=== PATIENT | male | born 1935 | race Caucasian/White ===

== ENCOUNTER → 2017-06-06 07:30 | Outpatient (CLI) | payer MEDICARE, SELFPAY ==
--- NOTE | 2017-05-10 16:38 | HP.PCM_ITS ---
History and Physical Date of Admission: 05/11/17 Referring Provider: Chavo Herman MD Primary Provider: Chavo Herman MD CC: evaluation for TBSE. History of Present Illness: 81 year male presents for evaluation for TBSE. He is concerned about a growing lesion on his dorsal radial aspect left mid forearm that has a cutaneous horn component. It has irregular borders. He denies any bleeding. He denies any trauma. He denies any fever. 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 He presents at this time for further evaluation and treatment. 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 Aspirin. Lipitor. Donepezil. Empagliflozin. Fish Oil. Neurontin. Amaryl. HCTZ. Zestril. MVI. Januvia. Ultram. Coumadin. ALLERGIES: Levaquin. Family History Summary: Mother (biol.) - Has Family History of Stroke/CVA Father (biol.) - Has Family History of Heart Disease General Comments - FH: Heart dx negative for skin cancer negative for bleeding disorders Social History: patient does not smoke. He chews tobacco. Does not drink alcohol. does take a daily aspirin. does not use ibuprofen. Review of Systems General Complains of fatigue. Denies fever and weight loss. Currently going through speech therapy s/p ischemic stroke. No paralysis, weakness or facial drooping Eyes Denies eye pain. denies cataracts. denies glaucoma. ENT Denies nasal congestion and sore throat. CV Denies difficulty breathing at night, chest pain or discomfort, fatigue, lightheadedness, shortness of breath with exertion, difficulty breathing while lying down, and weight gain. has hypertension. had cardiac catheterization in 2009. had ischemic stroke 07/2015 Resp Complains of sleep disturbances due to breathing and cough. patient does not smoke. He chews tobacco. GI Denies nausea, vomiting, diarrhea and constipation. Complains of urinary frequency and urinary hesitancy. Denies hematuria. has history of UTI's MS Complains of joint pain and gout. Denies back pain, stiffness, muscle weakness, and arthritis. Derm Complains of suspicious lesions and skin cancer. has enlarging lesion dorsal radial aspect left mid forearm. 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 Neuro Denies headaches, numbness and weakness. Psych Denies anxiety and depression. Endo Denies excessive urination, excessive thirst, and weight change. has diabetes mellitus. has high cholesterol. Heme Denies bleeding and abnormal bruising. Currently taking plavix s/p ischemic stroke Allergy Denies hives or rash and seasonal allergies. Vital Signs: Patient Profile: 81 Years Old Male Height: 73 inches Weight: 242.0 pounds BMI: 31.92 BSA: 2.34 Physical Exam General: well developed, well nourished, in no acute distress. Head: normocephalic and atraumatic. No suspicious lesions noted Eyes: PERRL/EOM intact, conjunctiva and sclera clear. Ears: No suspicious lesions noted Nose: No suspicious lesions noted Mouth: No suspicious lesions noted Neck: no masses, thyromegaly, or abnormal cervical nodes. No suspicious lesions noted Lungs: clear bilaterally to auscultation. Heart: non-displaced PMI, chest non-tender; regular rate and rhythm, S1, S2 without murmurs, rubs, or gallops Pulses: Radial pulses palpable. Extremities: no clubbing, cyanosis, edema. On the dorsal radial aspect left mid forearm is a 12 mm lesion that has a cutaneous horn component. Has irregular borders. No ulceration. Lesion is nontender. No axillary adenopathy. Radial pulses are palpable. Neurologic: no focal deficits, cranial nerves II-XII grossly intact with normal sensation, reflexes, coordination, muscle strength and tone. Skin: no rashes Cervical Nodes: no significant adenopathy. Axillary Nodes: no significant adenopathy. Psych: alert and cooperative; normal mood and affect; normal attention span and concentration. Assessment and Plan 1. 1.2 cm cutaneous horn lesion dorsal radial aspect left mid forearm. 2. Personal history of skin cancer. Recommend excision of this cutaneous horn like lesion on his dorsal radial aspect left mid forearm and send the tissue to pathology to rule out carcinoma. If carcinoma is present will proceed with further excision. Reconstruction will be done with skin graft or skin flap. Will excise as a full thickness excision because it is a cutaneous horn and could harbor a focus of skin cancer at the base. The surgery will be done on an outpatient basis under local anesthesia with IV Sedation. The patient was informed of the risks and complications of the procedure including alternatives to surgery. These were discussed with the patient personally. The patient voices understanding and wishes to proceed. Some of the risks and complications were included in a form from the [employer].
[2017-05-11 09:01] VITALS: BP 140/66; PULSE 58; RESP 16; TEMP 36.1; O2SAT 100; BMI 36.0
[2017-05-11 09:05] LABS: Prothrombin Time Fingerstick 13.7 SEC (11.9-14.4)
[2017-05-11 09:46] LABS: Bedside Glucose 198 mg/dL (70-110)
--- NOTE | 2017-05-11 10:38 | PCM.PN.BLA ---
Progress Note Patient was scheduled to have a cutaneous horn lesion excised from the dorsal radial aspect left mid forearm today. He comes in this morning and the horn component has fallen off. There is a small erythematous remnant still present. I still recommend excision with skin flap or skin graft reconstruction because the base of the lesion can still harbor a focus of skin cancer. However the patient would like to postpone the surgery at this time since the horn component has fallen off. 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 He will followup in my office in 2 months for re-evaluation for excision of this cutaneous horn lesion on the dorsal radial aspect left mid forearm.
== END ==
PROVIDERS: Family Provider Family Medicine; PCP Family Medicine; Visit Provider Surgery
DX: L85.8 Other specified epidermal thickening (principal); Z53.8 Procedure and treatment not carried out for other reasons; E11.9 Type 2 diabetes mellitus without complications; Z79.84 Long term (current) use of oral hypoglycemic drugs; I49.9 Cardiac arrhythmia, unspecified; I44.0 Atrioventricular block, first degree; I10 Essential (primary) hypertension; E78.00 Pure hypercholesterolemia, unspecified; G47.30 Sleep apnea, unspecified; F17.220 Nicotine dependence, chewing tobacco, uncomplicated; Z86.73 Personal history of transient ischemic attack (TIA), and cerebral infarction without residual deficits; Z79.01 Long term (current) use of anticoagulants; Z79.82 Long term (current) use of aspirin; Z79.899 Other long term (current) drug therapy; Z85.828 Personal history of other malignant neoplasm of skin
CPT/HCPCS: 36416; 82962; 85610; J7120

== ENCOUNTER → 2019-03-01 15:00 | Outpatient (CLI) | payer MEDICARE, SELFPAY ==
[2017-05-11 09:01] VITALS: BMI 36.0
[2019-03-01 15:23] LABS: International Normalized Ratio 1.5; Prothrombin Time (Protime)PT. 18.1 SECONDS (11.7-14.9)
== END ==
PROVIDERS: Family Provider Family Medicine; PCP Family Medicine; Visit Provider Family Medicine
DX: Z79.01 Long term (current) use of anticoagulants (principal)
CPT/HCPCS: 85610

== ENCOUNTER → 2019-04-11 12:47 | Outpatient (CLI) | payer MEDICARE, SELFPAY ==
[2017-05-11 09:01] VITALS: BMI 36.0
[2019-04-11 13:02] LABS: International Normalized Ratio 2.3; Prothrombin Time (Protime)PT. 25.3 SECONDS (11.7-14.9)
== END ==
PROVIDERS: Family Provider Family Medicine; PCP Family Medicine; Referring Provider Family Medicine; Visit Provider Family Medicine
DX: Z79.01 Long term (current) use of anticoagulants (principal)
CPT/HCPCS: 85610

== ENCOUNTER → 2020-07-01 | Outpatient (CLI) | payer MEDICARE, SELFPAY ==
[2017-05-11 09:01] VITALS: BMI 36.0
[2020-07-01 15:51] LABS: International Normalized Ratio 1.3
== END | disposition home or self-care (01) ==
LOC: LABSPEC 15:24
PROVIDERS: PCP Family Medicine; Visit Provider Family Medicine
DX: Z79.01 Long term (current) use of anticoagulants (principal)
CPT/HCPCS: 85610

== ENCOUNTER 2020-07-30 10:30 | Outpatient (RCR) | payer MEDICARE, SELFPAY ==
[2017-05-11 09:01] VITALS: BMI 36.0
== END 2020-07-31 23:59 ==
LOC: DC 10:30
PROVIDERS: PCP Family Medicine; Visit Provider Family Medicine
DX: E11.22 Type 2 diabetes mellitus with diabetic chronic kidney disease (principal); N18.9 Chronic kidney disease, unspecified
CPT/HCPCS: 97802; G0108

== ENCOUNTER → 2020-08-14 15:39 | Outpatient (CLI) | payer MEDICARE, SELFPAY ==
[2017-05-11 09:01] VITALS: BMI 36.0
--- NOTE | 2020-08-14 15:43 | MRI_ITS ---
STUDY: MRI BRAIN WITHOUT CONTRAST REASON FOR EXAM: Male, 84 years old. Dementia, prior stroke TECHNIQUE: Standardized multiplanar fat and water weighted pulse sequences were obtained. COMPARISON: 23 April 2016. FINDINGS: Moderate extent posterior left frontoparietal predominantly postcentral gyrus infarct is stable. Adjacent white matter gliosis has increased. There is a new since 2017 but chronic stage smaller left occipital infarct. There is mild to moderate global brain atrophy. There is no mass effect, midline shift, hydrocephalus or herniation. Major vascular flow structures are preserved. MRI/Brain without Contrast IMPRESSION: 1. No acute findings. 2. Chronic moderate extent left frontoparietal infarct. 3. Chronic small left occipital infarct, new since 2016. Electronically Signed: Hammad Palmer MD at 17:36 EDT Tel , Service support ,
== END ==
PROVIDERS: PCP Family Medicine
DX: F01.50 Vascular dementia, unspecified severity, without behavioral disturbance, psychotic disturbance, mood disturbance, and anxiety (principal)
CPT/HCPCS: 70551

== ENCOUNTER 2020-08-20 14:45 | Outpatient (RCR) | payer MEDICARE, SELFPAY ==
[2017-05-11 09:01] VITALS: BMI 36.0
== END 2020-08-31 23:59 ==
LOC: DC 14:45
PROVIDERS: PCP Family Medicine; Visit Provider Family Medicine
DX: E11.22 Type 2 diabetes mellitus with diabetic chronic kidney disease (principal); N18.9 Chronic kidney disease, unspecified
CPT/HCPCS: 97803

== ENCOUNTER 2020-09-10 14:27 | Outpatient (RCR) | payer MEDICARE, SELFPAY ==
[2017-05-11 09:01] VITALS: BMI 36.0
== END 2020-09-10 23:59 | disposition home or self-care (01) ==
LOC: DC 14:27
PROVIDERS: PCP Family Medicine; Visit Provider Family Medicine
DX: E11.22 Type 2 diabetes mellitus with diabetic chronic kidney disease (principal); N18.9 Chronic kidney disease, unspecified
CPT/HCPCS: 97803

== ENCOUNTER 2021-02-15 09:22 | Emergency (ER) | payer MEDICARE, SELFPAY ==
[2021-02-15 09:23] VITALS: BP 148/84; PULSE 103; RESP 18; TEMP 36.4; O2SAT 100; BMI 34.0
[2021-02-15] MEDS: 0.9% Normal Saline 1,000 ML 1000 ML IV (10:00)
--- NOTE | 2021-02-15 10:01 | EDS_ITS ---
HPI HPI - GI History of Present Illness Chief Complaint: Abd Pain Informant: patient and spouse/S.O. Abdominal Pain/Flank Pain Onset: Days Context: Gradual Onset Timing: Continuous Quality: Aching and Sharp Location: RLQ and LLQ Worsened by: Nothing Relieved by: - (Pepto-Bismol) Nausea/Vomiting/Emesis GI Symptom: Positive for Nausea; Negative for Vomiting Diarrhea/Melena/Hematochezia GI Symptom: Negative for Diarrhea, Melena and Hematochezia Associated Symptoms Associated Symptoms: Negative for Dysuria, Frequency and Hematuria Narrative Narrative: Patient presents with lower abdominal pain that has been getting worse over the past several days. Patient states he has been constipated. Patient had a Dulcolax which helped with this. Patient had a normal bowel movement yesterday. Patient describes his pain is constant aching but sharp at times. Patient states it is over his lower abdomen. states the patient has a history of diverticulosis. states she contact the patient's primary care physician who referred him to the emergency department for possible diverticulitis. Patient denies any melena or hematochezia. Patient denies any urinary complaints. 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 Stroke Home Medications allopurinol 300 mg PO DAILY 07/31/15 [History Last Taken Unknown] gabapentin 300 mg PO BID 07/31/15 [History Last Taken Unknown] glimepiride 4 mg PO BID 07/31/15 [History Last Taken Unknown] lisinopril 30 mg PO DAILY 07/31/15 [History Last Taken 05/11/17 06:00] sitagliptin 50 mg PO DAILY 07/31/15 [History Last Taken Unknown] tramadol 50 mg PO Q4H PRN PRN #30 tab 08/04/15 [Rx Last Taken Unknown] fish oil-dha-epa 1 ea PO DAILY 12/03/15 [History Last Taken Unknown] aspirin 81 mg tablet,delayed release 81 mg PO BID 04/19/17 [History Last Taken 05/05/17] donepezil 10 mg tablet 10 mg PO QHS 04/19/17 [History Last Taken Unknown] empagliflozin 10 mg tablet 10 mg PO QDAY 04/19/17 [History Last Taken Unknown] multivitamin 1 cap PO QDAY 04/19/17 [History Last Taken Unknown] warfarin 4 mg tablet See Rx Instructions PO QDAY 04/19/17 [History Last Taken 05/05/17] Daily Defense Supplement 1 tab PO DAILY 05/04/17 [History Last Taken Unknown] atorvastatin 80 mg PO DAILY 05/04/17 [History Last Taken Unknown] hydrochlorothiazide 25 mg PO DAILY 05/04/17 [History Last Taken Unknown] Allergy/AdvReac Type Severity Reaction Status Date / Time levofloxacin [[facility]] Allergy Other Verified 02/15/21 09:22 metformin AdvReac Other Verified 02/15/21 09:22 ACARB AdvReac Nausea Uncoded 02/15/21 09:22 Family History (Updated 04/12/17 @ 14:21 by Alexandra Slater) Mother CVA (cerebral vascular accident) Father Heart disease Surgical History EXCISION PAINFUL SOFT TISSUE MASS HEART CATHETERIZATION 2009 [facility] History of squamous cell carcinoma excision Social History Smoking Status: Never smoker second hand exposure: No alcohol intake: never substance use type: does not use what type of physical activity do you participate in: none seatbelt use: sometimes do you feel safe at home: Yes additional social history: SUN EXPOSURE: FREQUENTLY ROS ROS ED Constitutional Constitutional ED: Denies chills or fever(s) Eyes Eyes: Denies blurry vision or change in vision ENT ENT ED: Denies rhinorrhea or sore throat Cardiovascular Cardiovascular: Denies chest pain or palpitations Respiratory/Chest Respiratory/Chest: Denies cough or dyspnea Gastrointestinal Gastrointestinal: Reports nausea; Denies vomiting Genitourinary Genitourinary ED: Denies dysuria or hematuria Musculoskeletal Musculoskeletal: Reports back pain; Denies neck pain Integumentary Denies abscess or rash Neurologic Neurologic: Denies headache(s) or weakness Allergic/Immunologic Allergic/Immunologic ED: Denies mouth swelling or urticaria EXAM Physical Exam Const Vital Signs: 02/15/21 09:23 02/15/21 12:54 Temperature 97.6 F L Temperature Source Temporal Pulse Rate 103 H 73 Respiratory Rate 18 16 Blood Pressure 148/84 H 155/78 H Blood Pressure Mean 105 103 Pulse Ox 100 97 Oxygen Delivery Method Room Air Room Air Positive well nourished and well developed General Appearance ED: well developed HEENT Reports moist mucous membranes Neck supple and no JVD Resp normal respiratory effort and clear to auscultation bilaterally Cardio regular rate, regular rhythm and no murmurs GI normal to inspection, nondistended, normoactive bowel sounds and non-distended Auscultation: normoactive bowel sounds Palpation: soft and tender LLQ, RLQ and suprapubic; Negative for guarding or rebound tenderness present Extremity normal to inspection General Extremety ED: Negative for edema or tenderness General Extremity: Negative for edema Neuro oriented x3, CN's II-XII intact bilaterally and no sensory deficits noted Sensorium / Orientation: alert Motor Exam: strength 5/5 throughout Psych mental status grossly normal Skin no rashes or lesions noted MDM MDM MDM Narrative Medical decision making narrative: Patient was given IV fluids. CBC shows a slight leukocytosis of 13.4. Comprehensive metabolic profile showed a slightly elevated glucose of 306. Anion gap was normal. Creatinine was 2.08 and BUN was 45. These are consistent with prior results. Urinalysis does not show any evidence of urinary tract infection. CT scan of the abdomen pelvis was obtained. There is distention of the urinary bladder and mild perinephric stranding. There is sigmoid diverticulosis but no diverticulitis. This was interpreted by the radiologist and reviewed by myself. Bladder scan showed 265 cc of urine in the bladder. Patient states he has some urinary incontinence which is chronic. Patient denies any difficulty voiding. Patient and his were advised of the findings. Patient was instructed to follow-up with his primary care physician in 3 to 5 days. Patient and understood and were agreeable with the plan. All questions were answered. Lab Data Attestation: I reviewed the patient's lab results. Labs: Laboratory Results - last 24 hr 02/15/21 02/15/21 02/15/21 09:42 09:42 12:35 WBC 13.4 H RBC 5.16 Hgb 14.0 Hct 44.6 MCV 86.4 MCH 27.1 MCHC 31.4 L RDW Std Deviation 48.7 H RDW Coeff of Shen 15.3 H Plt Count 327 MPV 9.6 Immature Gran % (Auto) 0.600 Neut % (Auto) 86.4 H Lymph % (Auto) 6.5 L Mccormick % (Auto) 4.4 Eos % (Auto) 1.7 Baso % (Auto) 0.4 Absolute Neuts (auto) 11.6 H Absolute Lymphs (auto) 0.87 Nucleated RBC % 0 Sodium 140 Potassium 4.7 Chloride 110 H Carbon Dioxide 23.0 Anion Gap 7 BUN 45 H Creatinine 2.08 H Estim Creat Clear Calc 26.03 Est GFR (MDRD) Af Amer 39 L Est GFR (MDRD) Non-Af 33 L BUN/Creatinine Ratio 21.6 H Glucose 306 H Calcium 9.3 Total Bilirubin 0.90 AST 19 ALT 24 Alkaline Phosphatase 142 H Total Protein 7.1 Albumin 2.8 L Globulin 4.3 H Albumin/Globulin Ratio 0.7 L Lipase 123 Urine Color Yellow Urine Clarity Sl. Cloudy Urine pH 6.0 Ur Specific [place] 1.015 Urine Protein 100 H Urine Glucose (UA) 1000 H Urine Ketones Negative Urine Occult Blood 50 H Urine Nitrite Negative Urine Bilirubin Negative Urine Urobilinogen Normal Ur Leukocyte Esterase Negative Urine RBC 0-5 SEEN Urine WBC 0 SEEN Ur Squamous Epith Cells 0 SEEN Urine Bacteria 0 SEEN Urine Mucus 0 SEEN Radiography Diagnostic Testing: Clinical Impression(s) from Imaging Studies Abdomen CT 02/15/21 11:52 IMPRESSION: Urinary bladder distention. Sigmoid diverticulosis. Nonspecific bilateral perinephric stranding. Electronically Signed: Willis Jackson MD at 12:56 EST , Service support , Discharge Plan Triage Chief Complaint: Abd Pain ED Provider: Payam Mcdaniel Dx/Rx/DC Orders Clinical Impression: Abdominal pain in male Instructions: ED Abdominal Pain Unkn Cause Male... Prescriptions: No Action warfarin 4 mg tablet See Rx Instructions PO QDAY RF: 0 multivitamin capsule capsule 1 cap PO QDAY RF: 0 aspirin [Adult Low Dose Aspirin] 81 mg tablet,delayed release (DR/EC) 81 mg PO BID RF: 0 donepezil [Aricept] 10 mg tablet 10 mg PO QHS RF: 0 empagliflozin [Jardiance] 10 mg tablet 10 mg PO QDAY RF: 0 lisinopril 20 MG tablet 30 mg PO DAILY RF: 0 glimepiride 4 MG tablet 4 mg PO BID RF: 0 gabapentin 300 MG capsule 300 mg PO BID RF: 0 allopurinol 300 MG tablet 300 mg PO DAILY RF: 0 sitagliptin 100 MG tablet 50 mg PO DAILY RF: 0 tramadol 50 MG tablet 50 mg PO Q4H PRN PRN (Reason: Pain) Qty: 30 RF: 0 fish oil-dha-epa 1 EACH capsule 1 ea PO DAILY RF: 0 atorvastatin 80 MG tablet 80 mg PO DAILY RF: 0 hydrochlorothiazide 12.5 MG capsule 25 mg PO DAILY RF: 0 Daily Defense Supplement 1 tab PO DAILY RF: 0 Primary Care Provider: Chavo Herman Referrals: Chavo Herman MD [Primary Care Provider] - 3-5 Days Disposition Disposition: Home, Self Care
[2021-02-15 10:15] LABS: Absolute Lymphocyte Count 0.87 X10^3/uL (0.83-4.51); Absolute Neutrophil Count 11.6 X10^3/uL (2.0-7.7); Basophil# 0.05 X10^3/uL; Basophil% 0.4 % (0-1); Eosinophil# 0.23 X10^3/uL; Eosinophils% 1.7 % (0-5); Hematocrit 44.6 % (40-54); Lymphocyte # 0.87 X10^3/ul (0.83-4.51); Lymphocyte % 6.5 % (19-41); Mean Corp Hgb Conc 31.4 g/dL (32-36); Mean Corpuscular Hgb 27.1 pg (27.0-32.0); Mean Corpuscular Volume 86.4 fL (80-94); Mean Platelet Vol. 9.6 fl (6.2-12.0); Monocyte# 0.59 X10^3/uL; Monocyte% 4.4 % (0-10); NRBC Flagged by Analyzer 0 % (0-5); Neutrophil % 86.4 % (47-70); Platelet Count 327 K/mm3 (150-450); RBC Distribution Width CV 15.3 % (11.6-14.6); RBC Distribution Width SD 48.7 fl (35.1-43.9); Red Blood Count 5.16 M/mm3 (4.6-6.2); White Blood Count 13.4 K/mm3 (4.4-11.0)
[2021-02-15 10:29] LABS: ALB/GLOB Ratio 0.7 RATIO (0.9-2.4); AST(SGOT) 19 U/L (15-37); Alanine Aminotransfer ALT/SGPT 24 U/L (16-61); Albumin, Serum 2.8 g/dL (3.2-5.0); Alkaline Phosphatase 142 U/L (45-117); Anion Gap 7 (5-15); BUN 45 mg/dL (7-18); BUN/Creat Ratio 21.6 RATIO (10-20); Calcium,Total 9.3 mg/dL (8.5-10.1); Chloride 110 mmol/L (98-107); Creatinine, Serum 2.08 mg/dL (0.70-1.30); EST Glomerular Filtration Rate 33 mL/min (>60); Est Glom Filt Rate - Afr Amer 39 mL/min (>60); Estimated Creatinine Clearance 26.03 ml/min; Globulin 4.3 g/dL (2.2-4.2); Glucose 306 mg/dL (74-106); Lipase 123 U/L (73-393); Potassium 4.7 mmol/L (3.5-5.1); Protein, Total 7.1 g/dL (6.4-8.2); Sodium Level 140 mmol/L (136-145)
--- NOTE | 2021-02-15 11:52 | CT_ITS ---
STUDY: CT ABDOMEN AND PELVIS WITHOUT CONTRAST REASON FOR EXAM: Male, 85 years old. Abdominal pain RADIATION DOSAGE (If Supplied By Facility): CTDIvol = ( 19.65 ) mGy, DLP = ( 1119.53 ) mGycm TECHNIQUE: Transaxial images were obtained from the dome of the diaphragm to the symphysis pubis without oral contrast, and without intravenous contrast. Sagittal and coronal images were reconstructed. Individualized dose optimization techniques were used for this CT. COMPARISON: None. FINDINGS: Mild degree of linear scarring at the lung bases. Coronary artery calcification. Status post ENDO luminal stent grafting of the ascending thoracic aorta. Normal liver. Normal gallbladder and extrahepatic biliary system. There are multiple benign calcified granulomata of the spleen. Normal pancreas. Normal bilateral adrenal glands. Normal right kidney. Normal left kidney. Nonspecific mild degree of bilateral perinephric stranding. There is a small hiatal hernia. Normal small intestine. There are multiple colonic diverticula consistent with diverticulosis. The appendix is visualized and appears normal. There is diffuse atherosclerotic calcification of the abdominal aorta and its major visceral branches, without a demonstrated aneurysm. Normal inferior vena cava. Normal retroperitoneum. The urinary bladder is distended. The prostate measures 6.5 cm by 4.5 cm. Small bilateral inguinal hernias containing fat. There are diffuse degenerative changes of the visualized lumbar spine. Loss of height of the L2 and L3 vertebral bodies. CT/Abdomen/Pel W ORAL Cont Only IMPRESSION: Urinary bladder distention. Sigmoid diverticulosis. Nonspecific bilateral perinephric stranding. Electronically Signed: Willis Jackson MD at 12:56 EST , Service support ,
[2021-02-15 12:40] LABS: Bacteria 0 SEEN /hpf (None Seen); Mucous, Urine 0 SEEN /hpf (<or=2+); Squamous Epithelial Cells - UA 0 SEEN /hpf (0-5); White Blood Cells 0 SEEN /hpf (0-5)
[2021-02-15 12:42] LABS: Color, Urine Yellow (Yellow); Glucose, Dipstick 1000 mg/dl (Normal); Ketone-Dipstick Negative (Negative); Leukocyte Esterase-Dipstick Negative /ul (Negative); Nitrite-Dipstick Negative (Negative); Occult Blood-Urine 50 /ul (Negative); Protein-Dipstick 100 mg/dl (Negative); Specific Gravity, Urine 1.015 (1.002-1.030); Urine Bilirubin Dipstick Negative (Negative); Urine Clarity Sl. Cloudy (Clear); Urine Urobilinogen Normal (Normal)
[2021-02-15 12:49] LABS: Red Blood Cells-Urine 0-5 SEEN /hpf (0-5)
[2021-02-15 12:54] VITALS: BP 155/78; PULSE 73; RESP 16; O2SAT 97
== END 2021-02-15 15:01 | disposition home or self-care (01) ==
PROVIDERS: Emergency Provider Emergency Medicine; PCP Family Medicine
DX: R10.30 Lower abdominal pain, unspecified (principal); K59.00 Constipation, unspecified; R11.0 Nausea; R32 Unspecified urinary incontinence; K57.30 Diverticulosis of large intestine without perforation or abscess without bleeding; I10 Essential (primary) hypertension; E11.9 Type 2 diabetes mellitus without complications; E78.00 Pure hypercholesterolemia, unspecified; M10.9 Gout, unspecified; Z86.73 Personal history of transient ischemic attack (TIA), and cerebral infarction without residual deficits; Z85.828 Personal history of other malignant neoplasm of skin; Z79.01 Long term (current) use of anticoagulants; Z79.82 Long term (current) use of aspirin; Z79.84 Long term (current) use of oral hypoglycemic drugs; Z79.899 Other long term (current) drug therapy
CPT/HCPCS: 74176; 80053; 81001; 83690; 85025; 96360; 96361; 99285; J7030

== ENCOUNTER 2021-02-19 13:40 | Emergency (ER) | payer MEDICARE, SELFPAY ==
[2021-02-19 13:40] VITALS: BP 159/86; PULSE 75; RESP 16; TEMP 36.6; O2SAT 100; BMI 30.5
[2021-02-19 13:58] VITALS: BP 149/85; PULSE 85; RESP 14; O2SAT 100
--- NOTE | 2021-02-19 14:15 | CT_ITS ---
STUDY: CT BRAIN WITHOUT CONTRAST REASON FOR EXAM: Male, 85 years old. Head trauma on Coumadin RADIATION DOSAGE (If Supplied By Facility): CTDIvol = ( 44.99 ) mGy, DLP = ( 796.11 ) mGycm TECHNIQUE: Transaxial CT imaging of the brain was performed without administration of intravenous contrast material. Individualized dose optimization techniques were used for this CT. COMPARISON: Comparison is made with prior MRI of the brain dated 08/14/2020. FINDINGS: Normal soft tissue structures. Normal calvarium. There is moderate cerebral atrophy with widening of the extra-axial spaces and ventricular dilatation. There are areas of decreased attenuation within the white matter tracts of the supratentorial brain, consistent with microvascular disease changes. Stable encephalomalacia involving the left frontoparietal post central gyrus in keeping with prior infarction. Normal basal ganglia and thalami. Normal brainstem. There is mild cerebellar atrophy. There is no intracranial hemorrhage. There are no findings of an acute ischemic infarction. Small mucosal polyps or retention cyst along the posterior inferior aspect of the left maxillary sinus. CT/Brain/Head without Contrast IMPRESSION: Chronic involutional changes of the brain. Encephalomalacia in the posterior left frontal parietal lobe. This is unchanged. Electronically Signed: Willis Jackson MD at 14:53 EST , Service support ,
--- NOTE | 2021-02-19 14:16 | EKG12_ITS ---
Test Reason : FALL Blood Pressure : / mmHG Vent. Rate : 074 BPM Atrial Rate : 074 BPM P-R Int : 204 ms QRS Dur : 092 ms QT Int : 452 ms P-R-T Axes : 044 -57 121 degrees QTc Int : 501 ms Normal sinus rhythm Left anterior fascicular block T wave abnormality, consider anterolateral ischemia Prolonged QT Abnormal ECG Confirmed by SANJIV CARPENTER, JORGE A ([id number]), film editor supervisor TRISTON NGUYEN ([id number]) on 02/22/2021 1:18:23 PM Referred By: DENISE Confirmed By:JORGE A KINACID MD
--- NOTE | 2021-02-19 14:17 | RAD_ITS ---
STUDY: X-RAY - PELVIS REASON FOR EXAM: Male, 85 years old. Injury/Pain TECHNIQUE: One view of the pelvis was obtained. COMPARISON: None. FINDINGS: There is a non-specific bowel gas pattern. Normal visualized soft tissue structures. There is narrowing with cortical sclerosis and osteophyte formation of the sacroiliac joint consistent with degenerative osteoarthritic changes. Normal visualized bilateral superior and inferior pubic rami. There is narrowing with sclerosis of the pubic symphysis. Normal ischial tuberosities. Normal visualized right femoral head. Normal right acetabulum. There is mild articular joint space narrowing of the right hip. Normal visualized left femoral head. Normal left acetabulum. There is mild articular joint space narrowing of the left hip. RAD/Pelvis 1 or 2 Views IMPRESSION: Degenerative changes. No fracture is seen. Electronically Signed: Willis Jackson MD at 15:05 EST , Service support ,
[2021-02-19 14:36] LABS: Absolute Lymphocyte Count 0.63 X10^3/uL (0.83-4.51); Absolute Neutrophil Count 12.2 X10^3/uL (2.0-7.7); Basophil# 0.05 X10^3/uL; Basophil% 0.4 % (0-1); Eosinophil# 0.33 X10^3/uL; Eosinophils% 2.3 % (0-5); Hematocrit 38.6 % (40-54); Hemoglobin 12.4 g/dL (13.0-16.5); Lymphocyte # 0.63 X10^3/ul (0.83-4.51); Lymphocyte % 4.5 % (19-41); Mean Corp Hgb Conc 32.1 g/dL (32-36); Mean Corpuscular Hgb 27.6 pg (27.0-32.0); Mean Corpuscular Volume 85.8 fL (80-94); Mean Platelet Vol. 9.1 fl (6.2-12.0); Monocyte# 0.83 X10^3/uL; Monocyte% 5.9 % (0-10); NRBC Flagged by Analyzer 0 % (0-5); Neutrophil # 12.16 X10^3/uL (2.7-7.7); Neutrophil % 86.2 % (47-70); Platelet Count 308 K/mm3 (150-450); RBC Distribution Width CV 15.2 % (11.6-14.6); RBC Distribution Width SD 47.3 fl (35.1-43.9); White Blood Count 14.1 K/mm3 (4.4-11.0)
--- NOTE | 2021-02-19 14:40 | RAD_ITS ---
STUDY: X-RAY - LUMBAR SPINE REASON FOR EXAM: Male, 85 years old. Injury/Pain TECHNIQUE: 2 view(s) of the lumbar spine were obtained. COMPARISON: None FINDINGS: There is an exaggerated lumbar lordosis. There is no substantial scoliosis. Minimal anterolisthesis of L4 on L5. There is multilevel endplate spondylosis of the lumbar vertebrae. Old compression fracture of the L3 vertebrae. There is multi-level degenerative disc disease with multi-level disc space narrowing. Facet joint osteoarthritis. There is atherosclerotic calcification of the abdominal aorta without a demonstrated aneurysm. Large amount of fecal material is seen in the colon. RAD/Lumbar Spine 2 or 3 Views IMPRESSION: Degenerative changes of the spine, as detailed above. Old compression of the L3 vertebrae. Large amount of fecal material is seen in the colon. Electronically Signed: Willis Jackson MD at 15:04 EST , Service support ,
[2021-02-19 14:45] LABS: Prothrombin Time (Protime)PT. 39.8 SECONDS (11.7-14.9)
[2021-02-19 14:47] LABS: International Normalized Ratio 4.2
[2021-02-19 14:50] LABS: Anion Gap 5 (5-15); BUN 48 mg/dL (7-18); BUN/Creat Ratio 20.3 RATIO (10-20); Calcium,Total 8.5 mg/dL (8.5-10.1); Chloride 107 mmol/L (98-107); Creatinine, Serum 2.36 mg/dL (0.70-1.30); EST Glomerular Filtration Rate 28 mL/min (>60); Est Glom Filt Rate - Afr Amer 34 mL/min (>60); Estimated Creatinine Clearance 26.03 ml/min; Glucose 324 mg/dL (74-106); Potassium 4.7 mmol/L (3.5-5.1); Sodium Level 138 mmol/L (136-145)
--- NOTE | 2021-02-19 15:04 | EX.ED.GENINJ ---
HPI History of Present Illness Chief Complaint: Fall Detail of Chief Complaint: Generalized weakness or several weeks and fall 1 month ago and today Informant: patient and spouse/S.O. Onset/Context/Timing Onset: - (Detail of chief complaint) Mechanism/Context: Blunt Injury and Fall Location of pain/injuries: - (Back of head and lower back) Quality of Pain: Dull and Aching Current Severity: Mild Maximum Severity: Moderate Worsened by: Back pain worse with movement Relieved by: Nothing Associated Symptoms Associated Symptoms: Negative for Parasthesias, Weakness, Loss of function, Inability to ambulate, Loss of consciousness and Amnesia Narrative Narrative: Patient is an elderly male with history of CVA, diabetes, hyperlipidemia, hypertension on Coumadin who has been weak for the past several weeks. He had a fall approximate 1 week ago. was attempting to schedule appointment with orthopedics to determine why he is weak and having knee pain. Today he fell down stairs 10 steps. He fell backwards. He hit the back of his head. He denies loss of conscious. He is not amnestic. He is not oriented to time; however, states he has vascular dementia. He denies double vision, blurred vision loss of vision. He denies drainage from his ears, ringing in his ears or decreased hearing. He denies drainage from his nose or bloody nose. He denies malalignment of his teeth. Denies jaw pain. Denies neck pain. He denies paresthesia, anesthesia or motor weakness. He denies cough or shortness of breath. Denies chest discomfort. Does complain of back pain. He denies bruising easily. He denies problems with his balance. 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 Stroke Home Medications allopurinol 300 mg PO DAILY 07/31/15 [History Last Taken Unknown] gabapentin 300 mg PO BID 07/31/15 [History Last Taken Unknown] glimepiride 4 mg PO BID 07/31/15 [History Last Taken Unknown] lisinopril 30 mg PO DAILY 07/31/15 [History Last Taken 05/11/17 06:00] sitagliptin 50 mg PO DAILY 07/31/15 [History Last Taken Unknown] tramadol 50 mg PO Q4H PRN PRN #30 tab 08/04/15 [Rx Last Taken Unknown] fish oil-dha-epa 1 ea PO DAILY 12/03/15 [History Last Taken Unknown] aspirin 81 mg tablet,delayed release 81 mg PO BID 04/19/17 [History Last Taken 05/05/17] donepezil 10 mg tablet 10 mg PO QHS 04/19/17 [History Last Taken Unknown] empagliflozin 10 mg tablet 10 mg PO QDAY 04/19/17 [History Last Taken Unknown] multivitamin 1 cap PO QDAY 04/19/17 [History Last Taken Unknown] warfarin 4 mg tablet See Rx Instructions PO QDAY 04/19/17 [History Last Taken 05/05/17] Daily Defense Supplement 1 tab PO DAILY 05/04/17 [History Last Taken Unknown] atorvastatin 80 mg PO DAILY 05/04/17 [History Last Taken Unknown] hydrochlorothiazide 25 mg PO DAILY 05/04/17 [History Last Taken Unknown] Allergy/AdvReac Type Severity Reaction Status Date / Time levofloxacin [From Levaquin] Allergy Other Verified 02/19/21 13:43 metformin AdvReac Other Verified 02/19/21 13:43 ACARB AdvReac Nausea Uncoded 02/19/21 13:43 Family History Mother CVA (cerebral vascular accident) Father Heart disease Surgical History EXCISION PAINFUL SOFT TISSUE MASS HEART CATHETERIZATION 2009 [facility] History of squamous cell carcinoma excision Social History (Updated 02/19/21 @ 15:[address] Tony Saab MD) household members: spouse housing: house Smoking Status: Never smoker second hand exposure: No alcohol intake: never substance use type: does not use what type of physical activity do you participate in: none seatbelt use: sometimes do you feel safe at home: Yes additional social history: SUN EXPOSURE: FREQUENTLY ROS ROS ED Constitutional Constitutional ED: Denies chills, fever(s), subjective, sweats or weight loss Eyes Eyes: Denies blurry vision or change in vision ENT ENT ED: Denies ear pain, rhinorrhea or sore throat Cardiovascular Cardiovascular: Denies chest pain, palpitations, paroxysmal nocturnal dyspnea or racing heartbeat Respiratory/Chest Respiratory/Chest: Denies cough, dyspnea, dyspnea on exertion or paroxysmal nocturnal dyspnea Gastrointestinal Gastrointestinal: Reports abdominal pain; Denies diarrhea, melena, nausea or vomiting Genitourinary Genitourinary ED: Denies dysuria, hematuria or urinary frequency Musculoskeletal Musculoskeletal: Reports back pain; Denies arthralgias, myalgias or neck pain Integumentary Denies abscess, Abrasions or rash Neurologic Neurologic: Reports headache(s) and weakness; Denies paresthesias Endocrine Endocrinology: Denies polydipsia, polyphagia or polyuria Hematologic/Lymphatic Hematologic/Lymphatic: Denies easy bleeding or easy bruising Allergic/Immunologic Allergic/Immunologic ED: Denies mouth swelling, tongue swelling or urticaria EXAM Physical Exam Const Vital Signs: 02/19/21 13:40 02/19/21 13:58 02/19/21 14:02 Temperature 97.8 F Temperature Source Temporal Pulse Rate 75 85 Respiratory Rate 16 14 Respiratory Effort Normal Non-Labored Respiratory Depth Normal Blood Pressure 159/86 H 149/85 H Blood Pressure Mean 110 106 Pulse Ox 100 100 Oxygen Delivery Method Room Air Room Air Room Air 02/19/21 16:53 Temperature Temperature Source Pulse Rate Respiratory Rate Respiratory Effort Respiratory Depth Blood Pressure 167/82 H Blood Pressure Mean 110 Pulse Ox 94 Oxygen Delivery Method Room Air Positive well nourished, well developed and obese General Appearance ED: well developed and NAD Nutritional Appearance: obese HEENT Reports TM's clear HEENT Narrative: There is a contusion occiput. There is no palp depression. There is no clinical signs of basilar skull fracture. trauma and tenderness; Negative for atraumatic Nose: Negative for septum abnormal Tympanic Membrane ED: Yes TM's clear Eyes PERRL and EOMs intact bilaterally General Eye ED: Yes other Other Details: There is no subconjunctival hemorrhage noted. Neck full ROM General: Negative for tenderness Chest Wall inspection of chest normal Resp normal respiratory effort and clear to auscultation bilaterally Cardio regular rhythm, S1 normal heart sound and no murmurs; Negative for S2 normal heart sound Palpation: Negative for palpable S3 Rate: regular rate GI normal to inspection, nondistended, normoactive bowel sounds and no masses Palpation: soft Back/Spine Negative for normal to inspection or no thoracic nor lumbar tenderness Back/Spine Narrative: Pain to palpation midline lumbar region and over the posterior iliac spinous process on the right. There is a significant hematoma and abrasion noted. General Back: Negative for CVA tenderness Thoracic Spine / Upper Back: Negative for thoracic spinal tenderness Extremity normal to inspection and full ROM General Extremety ED: Negative for deformity, edema or tenderness General Extremity: Negative for deformity or edema Neuro No oriented x3, CN's II-XII intact bilaterally, moves all extremities, no focal motor deficits and no sensory deficits noted Sensorium / Orientation: oriented to person and oriented to place; Negative for alert or oriented to time Sensory Exam: other There is no clonus or Babinski sign. Deep Tendon Reflexes: Rt Triceps (C7): 1+, Lt Triceps (C7): 1+, Rt Biceps (C5, C6): 1+, Lt Biceps (C5, C6): 1+, Rt Brachioradialis (C6): 1+, Lt Brachioradialis (C6): 1+, Rt Patellar (L4): 1+, Lt Patellar (L4): 1+, Rt Ankle (S1): 1+ and Lt Ankle (S1): 1+ Deep Tendon Reflexes Back: Rt Patellar (L4): 1+, Lt Patellar (L4): 1+, Rt Ankle (S1): 1+ and Lt Ankle (S1): 1+ Plantar Reflex: Downgoing: bilateral Psych thought process normal Skin no rashes or lesions noted, No no wounds and no jaundice Trauma: abrasion MDM MDM MDM Narrative Medical decision making narrative: Since patient is on Coumadin PT/INR was obtained. Since there is evidence of head trauma and he is on Coumadin CT of the head was obtained per the [facility] CT head rule. Because of the skeletal pain x-ray of the LS-spine and pelvis was obtained. Blood work was obtained to assess etiology of his generalized weakness. Since he has elevated white count UA was obtained to rule out urinary tract infection. Lab Data Attestation: I reviewed the patient's lab results. Labs: Laboratory Results - last 24 hr 02/19/21 02/19/21 02/19/21 14:30 14:30 14:30 WBC 14.1 H RBC 4.50 L Hgb 12.4 L Hct 38.6 L MCV 85.8 MCH 27.6 MCHC 32.1 RDW Std Deviation 47.3 H RDW Coeff of Shen 15.2 H Plt Count 308 MPV 9.1 Immature Gran % (Auto) 0.700 Neut % (Auto) 86.2 H Lymph % (Auto) 4.5 L [place] % (Auto) 5.9 Eos % (Auto) 2.3 Baso % (Auto) 0.4 Absolute Neuts (auto) 12.2 H Absolute Lymphs (auto) 0.63 L Nucleated RBC % 0 PT 39.8 H INR 4.2 H* Sodium 138 Potassium 4.7 Chloride 107 Carbon Dioxide 26.0 Anion Gap 5 BUN 48 H Creatinine 2.36 H Estim Creat Clear Calc 26.03 Est GFR (MDRD) Af Amer 34 L Est GFR (MDRD) Non-Af 28 L BUN/Creatinine Ratio 20.3 H Glucose 324 H Calcium 8.5 Urine Color Urine Clarity Urine pH Ur Specific [place] Urine Protein Urine Glucose (UA) Urine Ketones Urine Occult Blood Urine Nitrite Urine Bilirubin Urine Urobilinogen Ur Leukocyte Esterase Urine RBC Urine WBC Ur Squamous Epith Cells Urine Bacteria Urine Mucus 02/19/21 15:40 WBC RBC Hgb Hct MCV MCH MCHC RDW Std Deviation RDW Coeff of Shen Plt Count MPV Immature Gran % (Auto) Neut % (Auto) Lymph % (Auto) [place] % (Auto) Eos % (Auto) Baso % (Auto) Absolute Neuts (auto) Absolute Lymphs (auto) Nucleated RBC % PT INR Sodium Potassium Chloride Carbon Dioxide Anion Gap BUN Creatinine Estim Creat Clear Calc Est GFR (MDRD) Af Amer Est GFR (MDRD) Non-Af BUN/Creatinine Ratio Glucose Calcium Urine Color Yellow Urine Clarity Clear Urine pH 5.0 Ur Specific [place] 1.015 Urine Protein 100 H Urine Glucose (UA) 1000 H Urine Ketones Negative Urine Occult Blood 25 H Urine Nitrite Negative Urine Bilirubin Negative Urine Urobilinogen Normal Ur Leukocyte Esterase Negative Urine RBC 0-5 SEEN Urine WBC 0 SEEN Ur Squamous Epith Cells 0 SEEN Urine Bacteria RARE Urine Mucus 0 SEEN Radiography Diagnostic Testing: Clinical Impression(s) from Imaging Studies Brain CT 02/19/21 14:15 IMPRESSION: Chronic involutional changes of the brain. Encephalomalacia in the posterior left frontal parietal lobe. This is unchanged. Electronically Signed: Willis Jackson MD at 14:53 EST , Service support , Pelvis X-Ray 02/19/21 14:17 IMPRESSION: Degenerative changes. No fracture is seen. Electronically Signed: Willis Jackson MD at 15:05 EST , Service support , Lumbar Spine X-Ray 02/19/21 14:40 IMPRESSION: Degenerative changes of the spine, as detailed above. Old compression of the L3 vertebrae. Large amount of fecal material is seen in the colon. Electronically Signed: Willis Jackson MD at 15:04 EST , Service support , Three-view LS spine reveals atherosclerotic disease. There is compression fracture of L1 3 and L2. Patient has sclerotic changes of the iliac wing on the right and left. Pelvic x-ray reveals no fracture. There were 3 views of the LS-spine and one view of the pelvis. Formal read by radiologist pending. These were interpreted by me at 04/07/2005. CT was reviewed by me. There is no evidence of acute intracranial process i.e. subdural, epidural, subarachnoid hemorrhage or intraparenchymal contusion. EKG Initial EKG: Attestation: I personally reviewed and interpreted this EKG as follows: Interpretation: Sinus Rhythm (Ventricular rate of 74. CT interval is 204 ms per cures duration 92 ms. QT duration 452 ms. The QTC is 501 ms which is prolonged. [place] is to the left. There is evidence of a left anterior fascicular block. There is decreased anterior force noted.) Discharge Plan Triage Chief Complaint: Fall ED Provider: Tony Saab Dx/Rx/DC Orders Clinical Impression: CHI (closed head injury), Hematoma of occipital region of scalp, emt intermediate (current) use of anticoagulants, Elevated INR, Contusion of lower back and pelvis, initial encounter, Abrasion Instructions: Concussion Dc, ED Abrasion, ED Back Contusion Prescriptions: No Action warfarin 4 mg tablet See Rx Instructions PO QDAY RF: 0 multivitamin capsule capsule 1 cap PO QDAY RF: 0 aspirin [Adult Low Dose Aspirin] 81 mg tablet,delayed release (DR/EC) 81 mg PO BID RF: 0 donepezil [Aricept] 10 mg tablet 10 mg PO QHS RF: 0 empagliflozin [Jardiance] 10 mg tablet 10 mg PO QDAY RF: 0 lisinopril 20 MG tablet 30 mg PO DAILY RF: 0 glimepiride 4 MG tablet 4 mg PO BID RF: 0 gabapentin 300 MG capsule 300 mg PO BID RF: 0 allopurinol 300 MG tablet 300 mg PO DAILY RF: 0 sitagliptin 100 MG tablet 50 mg PO DAILY RF: 0 tramadol 50 MG tablet 50 mg PO Q4H PRN PRN (Reason: Pain) Qty: 30 RF: 0 fish oil-dha-epa 1 EACH capsule 1 ea PO DAILY RF: 0 atorvastatin 80 MG tablet 80 mg PO DAILY RF: 0 hydrochlorothiazide 12.5 MG capsule 25 mg PO DAILY RF: 0 Daily Defense Supplement 1 tab PO DAILY RF: 0 Primary Care Provider: Chavo Herman Referrals: Chavo Herman MD [Primary Care Provider] - 3-5 Days (Will need INR rechecked) Activity Restrictions/Additional Instructions: 1. Do not take your Coumadin dose this evening or tomorrow 2. You will hurt more than you presently do and in more places than you presently do 3. Your bruises may get worse. 4. If you develop headache, vomiting or your notices any change in behavior return to the emergency department immediately Disposition Disposition: Home, Self Care
--- NOTE | 2021-02-19 15:09 | ED.RN ---
Dr. Saab notified of pt. request for pain medication for abdominal pain. Pt. reports using Tylenol and ibuprofen for pain Dr. Saab said he will give pt. Tylenol. Awaiting on order.
[2021-02-19 15:54] LABS: Mucous, Urine 0 SEEN /hpf (<or=2+); Squamous Epithelial Cells - UA 0 SEEN /hpf (0-5); White Blood Cells 0 SEEN /hpf (0-5)
[2021-02-19 16:02] LABS: Color, Urine Yellow (Yellow); Glucose, Dipstick 1000 mg/dl (Normal); Ketone-Dipstick Negative (Negative); Leukocyte Esterase-Dipstick Negative /ul (Negative); Nitrite-Dipstick Negative (Negative); Occult Blood-Urine 25 /ul (Negative); Protein-Dipstick 100 mg/dl (Negative); Specific Gravity, Urine 1.015 (1.002-1.030); Urine Bilirubin Dipstick Negative (Negative); Urine Clarity Clear (Clear); Urine Urobilinogen Normal (Normal)
[2021-02-19 16:11] LABS: Bacteria RARE /hpf (None Seen); Red Blood Cells-Urine 0-5 SEEN /hpf (0-5)
[2021-02-19 16:53] VITALS: BP 167/82; O2SAT 94
== END 2021-02-19 17:47 | disposition home or self-care (01) ==
PROVIDERS: Emergency Provider Emergency Medicine; PCP Family Medicine
DX: S00.03XA Contusion of scalp, initial encounter (principal); S30.810A Abrasion of lower back and pelvis, initial encounter; S32.019A Unspecified fracture of first lumbar vertebra, initial encounter for closed fracture; S32.029A Unspecified fracture of second lumbar vertebra, initial encounter for closed fracture; S32.039A Unspecified fracture of third lumbar vertebra, initial encounter for closed fracture; R79.1 Abnormal coagulation profile; W10.9XXA Fall (on) (from) unspecified stairs and steps, initial encounter; Y93.9 Activity, unspecified; Y92.9 Unspecified place or not applicable; E66.9 Obesity, unspecified; Z68.30 Body mass index [BMI] 30.0-30.9, adult; I44.4 Left anterior fascicular block; I10 Essential (primary) hypertension; E11.9 Type 2 diabetes mellitus without complications; E78.00 Pure hypercholesterolemia, unspecified; E78.5 Hyperlipidemia, unspecified; M10.9 Gout, unspecified; Z86.73 Personal history of transient ischemic attack (TIA), and cerebral infarction without residual deficits; Z85.828 Personal history of other malignant neoplasm of skin; Z79.01 Long term (current) use of anticoagulants; Z79.82 Long term (current) use of aspirin; Z79.84 Long term (current) use of oral hypoglycemic drugs; Z79.899 Other long term (current) drug therapy
CPT/HCPCS: 70450; 72100; 72170; 80048; 81001; 85025; 85610; 93005; 99285; A4216

== ENCOUNTER 2021-02-21 15:38 | Inpatient (IN) | payer MEDICARE, SELFPAY ==
[2021-02-21] VITALS (11 sets, daily range): BP systolic 122–160; BP diastolic 53–85; PULSE 62–88; RESP 13–18; TEMP 36.3–36.8; O2SAT 98–100; BMI 29.1; BMI 27.7
--- NOTE | 2021-02-21 15:41 | CT_ITS ---
We are attempting to reach an attending provider to discuss findings. An addendum with communication details will be sent when the communication is complete. HISTORY: Neuro deficit, acute, stroke suspected. TECHNIQUE: Routine [place]/brain and carotid CT angiogram protocol was performed with IV contrast. Nascet criteria using the distal ICAs for comparison were used for evaluation of stenoses. 2D/3D reconstructions were reviewed. A radiation dose optimization technique was used for this scan. IV Contrast dosage and agent: 100 mL [id number] IV. Number of images including paperwork: 2008. COMPARISON: CT head same day, CTA 08/01/2015. FINDINGS: CTA head- ICAs: Calcified plaque at both carotid siphons. No significant stenosis at the intracranial/visualized segments. ACAs: No significant stenosis at the visualized segments. MCAs: No significant stenosis at the visualized segments. cement mason maintenance: No significant stenosis at the visualized segments. BASILAR ARTERY: No significant stenosis. Unchanged fullness at the basilar tip. VERTEBRAL ARTERIES: No significant stenosis at the intradural/visualized segments. No evidence of intracranial aneurysm or vascular malformation. CTA neck- RIGHT CCA: Less than 30% calcified plaque at the bifurcation. No occlusion, significant stenosis or dissection. RIGHT ICA: Less than 30% stenosis of the origin. No occlusion or significant stenosis. LEFT CCA: Less than 30% stenosis at the bifurcation. No occlusion, significant stenosis or dissection. LEFT ICA: Less than 50% stenosis of the origin. No occlusion, significant stenosis or dissection. RIGHT VERTEBRAL ARTERY: No occlusion, significant stenosis or dissection. Calcified plaque at the origin. LEFT VERTEBRAL ARTERY: No occlusion, significant stenosis or dissection. Calcified plaque at the origin. 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 CT/STROKE CTA Head AND Neck W/Con IMPRESSION: No evidence for focal vascular abnormality in the [place] region. No evidence for significant stenosis in the carotid or vertebral arteries of the neck. Individualized dose optimization techniques were used for this CT. at 1616 Reported and signed by: Mackenzie Nguyen MD Electronically Signed: Mackenzie Nguyen MD at 16:15 EST Tel , Service support ,
--- NOTE | 2021-02-21 15:41 | CT_ITS ---
STUDY: CT BRAIN WITHOUT CONTRAST REASON FOR EXAM: Male, 85 years old. Neuro deficit acute stroke evaluation RADIATION DOSAGE (If Supplied By Facility): CTDIvol = ( ) mGy, DLP = ( ) mGycm TECHNIQUE: Transaxial CT imaging of the brain was performed without administration of intravenous contrast material. Individualized dose optimization techniques were used for this CT. COMPARISON: 19 February 2021, 14 Aug 2020 FINDINGS: Appearance is similar to prior. There is a large left posterior MCA distribution posterior frontal and parietal remote infarct. There are smaller left parieto-occipital and left cerebellar infarct. Both infarcts were present in August but appear larger, raising possibility of infarct extension, especially in the left cerebellum. However, there appearance is similar since 2 days prior. There is no mass effect, acute intracranial hemorrhage, extra parenchymal fluid collections, hydrocephalus or herniation. The skull is intact. CT/STROKE Brain/Head without Cont IMPRESSION: 1. Left cerebellar and left parietal occipital infarct, stable since 2 days prior but larger since 6 months prior, possibility of acute or subacute infarct extension is present. 2. Remote stable large left MCA infarct. N.B. : The above Results were Read Back by Hammad Palmer MD to carmen echols DO, and understanding confirmed on 02/21/2021 16:03:10 (ET). Electronically Signed: Hammad Palmer MD at 16:04 EST Tel , Service support ,
--- NOTE | 2021-02-21 15:41 | EKG12_ITS ---
Test Reason : STROKE Blood Pressure : / mmHG Vent. Rate : 064 BPM Atrial Rate : 064 BPM P-R Int : 206 ms QRS Dur : 104 ms QT Int : 424 ms P-R-T Axes : 099 -46 077 degrees QTc Int : 437 ms Sinus rhythm with occasional Premature ventricular complexes Left anterior fascicular block Abnormal ECG Confirmed by SANJIV CARPENTER, JORGE A ([id number]), medical transcription editor TRISTON NGUYEN ([id number]) on 02/23/2021 1:23:20 PM Referred By: HAILEE Confirmed By:JORGE A KINCAID MD
--- NOTE | 2021-02-21 15:42 | ED.VIS.STROK ---
HPI History of Present Illness Chief Complaint: Neuro S/Sx Narrative Narrative: Patient arrives over 5 hours after sustaining right arm and right leg weakness. This was sudden onset. He also has some slurred speech. He does have prior history of stroke with left face deficit but otherwise no major deficits. He did sustain a head injury 2 days ago but he was seen in the ED and had an unremarkable work-up. He has no chest pain. No palpitations. 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 Stroke Home Medications allopurinol 300 mg PO DAILY 07/31/15 [History Last Taken Unknown] gabapentin 300 mg PO BID 07/31/15 [History Last Taken Unknown] glimepiride 4 mg PO BID 07/31/15 [History Last Taken Unknown] lisinopril 30 mg PO DAILY 07/31/15 [History Last Taken 05/11/17 06:00] sitagliptin 50 mg PO DAILY 07/31/15 [History Last Taken Unknown] tramadol 50 mg PO Q4H PRN PRN #30 tab 08/04/15 [Rx Last Taken Unknown] fish oil-dha-epa 1 ea PO DAILY 12/03/15 [History Last Taken Unknown] aspirin 81 mg tablet,delayed release 81 mg PO BID 04/19/17 [History Last Taken 05/05/17] donepezil 10 mg tablet 10 mg PO QHS 04/19/17 [History Last Taken Unknown] empagliflozin 10 mg tablet 10 mg PO QDAY 04/19/17 [History Last Taken Unknown] multivitamin 1 cap PO QDAY 04/19/17 [History Last Taken Unknown] warfarin 4 mg tablet See Rx Instructions PO QDAY 04/19/17 [History Last Taken 05/05/17] Daily Defense Supplement 1 tab PO DAILY 05/04/17 [History Last Taken Unknown] atorvastatin 80 mg PO DAILY 05/04/17 [History Last Taken Unknown] hydrochlorothiazide 25 mg PO DAILY 05/04/17 [History Last Taken Unknown] Allergy/AdvReac Type Severity Reaction Status Date / Time levofloxacin [From Levaquin] Allergy Other Verified 02/19/21 13:43 metformin AdvReac Other Verified 02/19/21 13:43 ACARB AdvReac Nausea Uncoded 02/19/21 13:43 Family History Mother CVA (cerebral vascular accident) Father Heart disease Surgical History EXCISION PAINFUL SOFT TISSUE MASS HEART CATHETERIZATION 2009 [facility] History of squamous cell carcinoma excision Social History household members: spouse housing: house Smoking Status: Never smoker second hand exposure: No alcohol intake: never substance use type: does not use what type of physical activity do you participate in: none seatbelt use: sometimes do you feel safe at home: Yes additional social history: SUN EXPOSURE: FREQUENTLY ROS ROS ED ROS Narrative Past medical history: Reviewed, it is extensive see above Medications: Reviewed Social history: Noncontributory Review of systems: All systems negative except as indicated General: No fever Eyes: No visual changes ENT: No upper airway congestion, normal voice Neck: No neck pain Cardiovascular: No chest pain Respiratory: No shortness of breath or cough Gastrointestinal: No abdominal pain, nausea vomiting or diarrhea Genitourinary: No dysuria Musculoskeletal: Denies myalgias no difficulty with ambulation Skin: No rash Neurological: As in HPI Psych: No recent behavioral changes Hematologic: No easy bleeding or easy bruising EXAM Physical Exam Narrative Exam Narrative: Physical exam General: Well nourished, Well developed, No Acute Distress Head: Normocephalic, Atraumatic Eyes: Conjunctiva not pale ENT: Slightly dry membranes, left-sided facial droop Neck: Supple, Nontender, No lymphadenopathy Cardiovascular: Regular rate, Regular rhythm Respiratory: No distress, CTA bilaterally Abdomen: Soft, Nontender, Nondistended Back: Nontender, Normal Inspection. Negative for: CVA tenderness Extremities: Nontender, No edema Skin: Normal color, No rash Neurological: See NIH stroke scale Psychological: Normal affect Const Vital Signs: 02/21/21 15:39 02/21/21 15:54 02/21/21 16:08 Temperature 98.2 F Temperature Source Oral Pulse Rate 63 70 64 Respiratory Rate 18 13 18 Blood Pressure 160/60 H 160/60 H 151/63 H Blood Pressure Mean 93 93 92 Pulse Ox 99 99 100 Oxygen Delivery Method Room Air Room Air Room Air STROKE Vital Signs/Narrative: Vital Signs Temp Pulse Resp BP Pulse Ox 02/21/21 16:08 64 18 151/63 H 100 02/21/21 15:54 70 13 160/60 H 99 02/21/21 15:39 98.2 F 63 18 160/60 H 99 NIHSS Initial: 1a Level of Consciousness: 0 1b LOC Questions (Score 2 if aphasic/stupor): 0 1c LOC Commands (Only score 1st attempt): 0 2 Best Gaze (If aphasic, use reflexive mvmts.): 0 3 Visual: 0 4 Facial Palsy: 0 (There is left-sided facial palsy but this is from a prior stroke) 5 Motor Arm Right (UN = amputation/fusion): 3 5 Motor Arm Left: 0 6 Motor Leg Right: 2 6 Motor Leg Left: 0 7 Limb ataxia (Only + if out of proportion): 0 8 Sensory (Aphasia/stupor=0 or 1, coma=2): 1 9 Best Language: 0 10 Dysarthria (mute, coma=2, intubated=UN): 1 11 Extinction and Inattention (only scored if +): 0 Total Score: 7 MDM MDM MDM Narrative Medical decision making narrative: Patient does not meet criteria for TPA, onset of symptoms were [address] angiogram does not show any acute obstruction. I will admit for an MRI and further work-up. Lab Data Labs: Laboratory Results - last 24 hr 02/21/21 02/21/21 15:25 15:50 WBC 13.9 H RBC 4.52 L Hgb 12.4 L Hct 39.2 L MCV 86.7 MCH 27.4 MCHC 31.6 L RDW Std Deviation 48.4 H RDW Coeff of Shen 15.1 H Plt Count 386 MPV 9.4 Immature Gran % (Auto) 1.000 H Neut % (Auto) 77.6 H Lymph % (Auto) 9.9 L [place] % (Auto) 6.6 Eos % (Auto) 4.4 Baso % (Auto) 0.5 Absolute Neuts (auto) 10.8 H Absolute Lymphs (auto) 1.38 Nucleated RBC % 0 PT 33.2 H INR 3.4 APTT 74.1 H Radiography Diagnostic Testing: Clinical Impression(s) from Imaging Studies Brain CT 02/21/21 15:41 IMPRESSION: 1. Left cerebellar and left parietal occipital infarct, stable since 2 days prior but larger since 6 months prior, possibility of acute or subacute infarct extension is present. 2. Remote stable large left MCA infarct. N.B. : The above Results were Read Back by Hammad Palmer MD to aydin echols DO, and understanding confirmed on 02/21/2021 16:03:10 (ET). Electronically Signed: Hammad Palmer MD at 16:04 EST Tel , Service support , ADDENDUM: 02/21/21 1610 IMPRESSION: 1. Left cerebellar and left parietal occipital infarct, stable since 2 days prior but larger since 6 months prior, possibility of acute or subacute infarct extension is present. 2. Remote stable large left MCA infarct. N.B. : The above Results were Read Back by Hamamd Palmer MD to aydin echols DO, and understanding confirmed on 02/21/2021 16:03:10 (ET). Electronically Signed: Hammad Palmer MD at 16:04 EST Tel , Service support , Head/Neck CTA 02/21/21 15:41 IMPRESSION: No evidence for focal vascular abnormality in the [place] region. No evidence for significant stenosis in the carotid or vertebral arteries of the neck. Individualized dose optimization techniques were used for this CT. at 1616 Reported and signed by: Mackenzie Nguyen MD Electronically Signed: Mackenzie Nguyen MD at 16:15 EST Tel , Service support , Critical Care Time Critical Care Time: Yes Critical care time (excluding procedures): 30-74 minutes and - (Critical care time is 35 minutes this involves prehospital, hospital care, discussing with consultants, documenting) Discharge Plan Triage Chief Complaint: Neuro S/Sx ED Provider: Aydin Echols Dx/Rx/DC Orders Clinical Impression: Acute CVA (cerebrovascular accident) Prescriptions: No Action warfarin 4 mg tablet See Rx Instructions PO QDAY RF: 0 multivitamin capsule capsule 1 cap PO QDAY RF: 0 aspirin [Adult Low Dose Aspirin] 81 mg tablet,delayed release (DR/EC) 81 mg PO BID RF: 0 donepezil [Aricept] 10 mg tablet 10 mg PO QHS RF: 0 empagliflozin [Jardiance] 10 mg tablet 10 mg PO QDAY RF: 0 lisinopril 20 MG tablet 30 mg PO DAILY RF: 0 glimepiride 4 MG tablet 4 mg PO BID RF: 0 gabapentin 300 MG capsule 300 mg PO BID RF: 0 allopurinol 300 MG tablet 300 mg PO DAILY RF: 0 sitagliptin 100 MG tablet 50 mg PO DAILY RF: 0 tramadol 50 MG tablet 50 mg PO Q4H PRN PRN (Reason: Pain) Qty: 30 RF: 0 fish oil-dha-epa 1 EACH capsule 1 ea PO DAILY RF: 0 atorvastatin 80 MG tablet 80 mg PO DAILY RF: 0 hydrochlorothiazide 12.5 MG capsule 25 mg PO DAILY RF: 0 Daily Defense Supplement 1 tab PO DAILY RF: 0 Primary Care Provider: Chavo Herman Referrals: Chavo Herman MD [Primary Care Provider] - Disposition Disposition: Acute Care Hospital [facility]
[2021-02-21 15:53] LABS: Absolute Lymphocyte Count 1.38 X10^3/uL (0.83-4.51); Absolute Neutrophil Count 10.8 X10^3/uL (2.0-7.7); Basophil# 0.07 X10^3/uL; Basophil% 0.5 % (0-1); Eosinophil# 0.61 X10^3/uL; Eosinophils% 4.4 % (0-5); Hematocrit 39.2 % (40-54); Hemoglobin 12.4 g/dL (13.0-16.5); Lymphocyte # 1.38 X10^3/ul (0.83-4.51); Lymphocyte % 9.9 % (19-41); Mean Corp Hgb Conc 31.6 g/dL (32-36); Mean Corpuscular Hgb 27.4 pg (27.0-32.0); Mean Corpuscular Volume 86.7 fL (80-94); Mean Platelet Vol. 9.4 fl (6.2-12.0); Monocyte# 0.91 X10^3/uL; Monocyte% 6.6 % (0-10); NRBC Flagged by Analyzer 0 % (0-5); Neutrophil # 10.78 X10^3/uL (2.7-7.7); Neutrophil % 77.6 % (47-70); Platelet Count 386 K/mm3 (150-450); RBC Distribution Width CV 15.1 % (11.6-14.6); RBC Distribution Width SD 48.4 fl (35.1-43.9); Red Blood Count 4.52 M/mm3 (4.6-6.2); White Blood Count 13.9 K/mm3 (4.4-11.0)
[2021-02-21 16:15] LABS: International Normalized Ratio 3.4; Prothrombin Time (Protime)PT. 33.2 SECONDS (11.7-14.9)
[2021-02-21 16:16] LABS: Partial Thromboplast Time 74.1 Seconds (24.1-36.2)
--- NOTE | 2021-02-21 16:37 | NURSING ---
PCU CVA RAMON
[2021-02-21 16:43] LABS: Anion Gap 5 (5-15); BUN 63 mg/dL (7-18); BUN/Creat Ratio 21.6 RATIO (10-20); Calcium,Total 9.1 mg/dL (8.5-10.1); Chloride 104 mmol/L (98-107); Creatinine, Serum 2.91 mg/dL (0.70-1.30); EST Glomerular Filtration Rate 22 mL/min (>60); Est Glom Filt Rate - Afr Amer 27 mL/min (>60); Estimated Creatinine Clearance 21.11 ml/min; Glucose 257 mg/dL (74-106); Potassium 4.4 mmol/L (3.5-5.1); Sodium Level 136 mmol/L (136-145); Troponin-I HS 138 pg/mL (3.0-78.0)
--- NOTE | 2021-02-21 16:45 | RAD_ITS ---
STUDY: X-RAY CHEST REASON FOR EXAM: Male, 85 years old. Neuro deficit, acute, stroke suspected TECHNIQUE: Frontal portable view of the chest COMPARISON: 31 July 2015 FINDINGS: Pulmonary volumes are low. Lungs are clear.. There is no demonstrated pleural abnormality. Normal size heart. Normal mediastinum and saravanan. Normal visualized pulmonary arteries. Normal visualized aortic arch and descending thoracic aorta. Normal visualized thoracic spine. Normal visualized ribs, clavicles, and shoulders. There is no demonstrated abnormality of the visualized soft tissue structures of the upper abdomen. RAD/Chest 1 View IMPRESSION: Normal x-ray examination of the chest. Electronically Signed: Hammad Palmer MD at 17:55 EST Tel , Service support ,
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
--- NOTE | 2021-02-21 17:40 | CT_ITS ---
STUDY: CT CERVICAL SPINE WITHOUT CONTRAST REASON FOR EXAM: Male, 85 years old. Right arm weakness recent fall RADIATION DOSAGE (If Supplied By Facility): CTDIvol = ( ) mGy, DLP = ( ) mGycm TECHNIQUE: High resolution transaxial imaging was performed without contrast material. Sagittal and coronal images were reconstructed. Individualized dose optimization techniques were used for this CT. COMPARISON: None FINDINGS: Craniocervical junction and cervical spine are intact and aligned. Mineralization is normal. Paraspinous soft tissues are normal. C2-C3 is fused across the disc and posterior elements facets. Canal and foramina are patent. CT/Spine Cervical without Contras IMPRESSION: Patent canal, no neural compression. Electronically Signed: Hammad Palmer MD at 18:23 EST Tel , Service support ,
--- NOTE | 2021-02-21 17:40 | ECHOCS_ITS ---
Reason For Study: TIA/CVA Procedure This was a 2D Doppler, Color Flow transthoracic echocardiogram. Technically difficult study due to patients body habitus and condition. Patient was unable to hold still for testing. Previous NEGATIVE Bubble study, Contrast injection was performed. Exam performed portable in patient room. Left Ventricle Normal LV size. Mild concentric left ventricular hypertrophy. Left ventricular systolic function is normal. The estimated ejection fraction is 65 %. No regional wall motion abnormalities noted. Right Ventricle Normal RV size. Normal systolic function. Atria Normal left atrium. Normal right atrium. Mitral Valve Normal mitral valve. Tricuspid Valve Normal tricuspid valve. Aortic Valve Trisinus/trileaflet aortic valve. Mild focal aortic valve calcification. Pulmonic Valve Normal pulmonic valve. Great Vessels Calcified aortic root. The pulmonary artery is normal size. Normal inferior vena cava. Pericardium/Pleural No pericardial effusion. Medication Diluted definity 3ml given slow IV push to enhance endocardial definition. Performed a rapid injection of agitated mix of 9 cc saline and 1cc air to assess for atrial septal defect. MMode/2D Measurements & Calculations LVIDd: 4.3 cm IVSd: 1.2 cm LVOT diam: 2.0 cm LVIDs: 3.0 cm LVPWd: 1.2 cm FS: 30.9 % LVOT area: 3.2 cm2 LAV(MOD-sp2): 47.5 ml Aortic Valve Planimetry: 2.1 cm2 Time Measurements MV dec time: 0.20 sec Doppler Measurements & Calculations MV E max jayy: 65.8 cm/sec Lat Peak E' Jayy: 9.0 cm/sec Med Peak E' Jayy: 8.1 cm/sec MV A max jayy: 109.7 cm/sec E/E' lat: 7.3 E/E' med: 8.2 MV E/A: 0.60 Ao V2 max: 155.3 cm/sec LV V1 max: 116.2 cm/sec SV(LVOT): 57.3 ml Ao max P.6 mmHg LV V1 max P.5 mmHg Ao V2 mean: 95.3 cm/sec LV V1 mean P.8 mmHg Ao mean P.3 mmHg LV V1 mean: 77.3 cm/sec Ao V2 VTI: 21.6 cm LV V1 VTI: 18.0 cm JAYDA(I,D): 2.7 cm2 JAYDA(V,D): 2.4 cm2 PA V2 max: 131.3 cm/sec ECHO/Echo Complete W/ Contrast Interpretation Summary Normal LV size. Mild concentric left ventricular hypertrophy. Left ventricular systolic function is normal. The estimated ejection fraction is 65 %. Previously negative bubble study Contrast injection was performed. The study wa s technically difficult. Ordering Physician: Payam Blanc Referring Physician: MD Batsheva Chavo Performed By: David Garnica RCS
[2021-02-21 18:22] LABS: Troponin-I HS 130 pg/mL (3.0-78.0)
[2021-02-21] MEDS: 0.9% Normal Saline 1,000 ML 150 ML IV (18:51)
--- NOTE | 2021-02-21 19:38 | ED.RN ---
[facility] CALLED LOOKING TO SEE IF PATIENT NEEDED TO TRANSFERRED OR ADMITTED. THEY WERE ADVISED PATIENT WAS ADMITTED TO [facility]
[2021-02-21] MEDS: Aspirin E.C. 81 MG Tablet PO (22:58)
[2021-02-22] VITALS (13 sets, daily range): BP systolic 124–144; BP diastolic 60–81; PULSE 87–118; RESP 14–18; TEMP 36.2–37.3; O2SAT 93–100; BMI 27.7
[2021-02-22 00:06] LABS: Bedside Glucose 327 mg/dL (70-110)
[2021-02-22] MEDS: Insulin Lispro 100 UNIT/ML INSULN.PEN SC ×5 (00:35→20:36)
[2021-02-22 05:31] LABS: Absolute Lymphocyte Count 0.76 X10^3/uL (0.83-4.51); Basophil# 0.07 X10^3/uL; Basophil% 0.4 % (0-1); Eosinophil# 0.31 X10^3/uL; Eosinophils% 1.9 % (0-5); Hematocrit 36.2 % (40-54); Hemoglobin 11.3 g/dL (13.0-16.5); Lymphocyte # 0.76 X10^3/ul (0.83-4.51); Lymphocyte % 4.7 % (19-41); Mean Corp Hgb Conc 31.2 g/dL (32-36); Mean Corpuscular Hgb 27.5 pg (27.0-32.0); Mean Corpuscular Volume 88.1 fL (80-94); Mean Platelet Vol. 9.4 fl (6.2-12.0); Monocyte# 0.98 X10^3/uL; NRBC Flagged by Analyzer 0 % (0-5); Neutrophil # 14.01 X10^3/uL (2.7-7.7); Neutrophil % 86.3 % (47-70); Platelet Count 342 K/mm3 (150-450); RBC Distribution Width CV 15.2 % (11.6-14.6); RBC Distribution Width SD 48.8 fl (35.1-43.9); Red Blood Count 4.11 M/mm3 (4.6-6.2); White Blood Count 16.3 K/mm3 (4.4-11.0)
[2021-02-22 05:37] LABS: International Normalized Ratio 2.7; Prothrombin Time (Protime)PT. 27.5 SECONDS (11.7-14.9)
[2021-02-22 05:54] LABS: Anion Gap 8 (5-15); BUN 61 mg/dL (7-18); BUN/Creat Ratio 23.7 RATIO (10-20); Calcium,Total 8.4 mg/dL (8.5-10.1); Chloride 109 mmol/L (98-107); Cholesterol 136 mg/dL (200); Creatinine, Serum 2.57 mg/dL (0.70-1.30); EST Glomerular Filtration Rate 26 mL/min (>60); Est Glom Filt Rate - Afr Amer 31 mL/min (>60); Glucose 265 mg/dL (74-106); High Density Lipoprotein 29 mg/dL; Potassium 4.3 mmol/L (3.5-5.1); Sodium Level 137 mmol/L (136-145); Triglycerides 299 mg/dL; Very Low Density Lipoprotein 60 mg/dL (5-40)
[2021-02-22 07:10] LABS: Bedside Glucose 280 mg/dL (70-110)
--- NOTE | 2021-02-22 09:18 | TELEMED_ITS ---
[facility] has confirmed receipt of a request for visit. This document confirms receipt of the order initiating the consult. To find the results of the consultation, please view the patient's reports for the scanned Telemed Consult.
[2021-02-22] MEDS: Multivitamins,Therapeutic Tablet 1 TABLET PO (09:19)
[2021-02-22] MEDS: Allopurinol 300 MG Tablet PO (09:19)
[2021-02-22] MEDS: Aspirin E.C. 81 MG Tablet PO ×2 (09:19→20:25)
[2021-02-22] MEDS: Docusate Sodium 100 MG Capsule PO ×2 (09:21→20:24)
--- NOTE | 2021-02-22 09:30 | MRI_ITS ---
We are attempting to reach an attending provider to discuss findings. An addendum with communication details will be sent when the communication is complete. STUDY: MRI BRAIN WITHOUT CONTRAST REASON FOR EXAM: Male, 85 years old. CVA TECHNIQUE: Standardized multiplanar fat and water weighted pulse sequences were obtained. COMPARISON: CT of the head dated 02/21/2021 FINDINGS: There is mild cerebral atrophy with widening of the extra-axial spaces and ventricular dilatation. There are multiple white matter hyperintensities, distributed throughout the deep white matter tracts of the cerebral hemispheres, consistent with moderate chronic white matter ischemic changes. There is left frontal encephalomalacia and gliosis, consistent with prior insult. Similar small areas of the left occipital and left cerebellar lesions are also noted. There is a 3 mm focus of increased diffusion signal involving the posterior left thalamus. There is similar focus involving the right occipital lobe. There is drop of signal on ADC map, consistent with acute infarctions. Normal bilateral basal ganglia. There is no extra-axial fluid accumulation. Normal sella turcica, pituitary gland, infundibular stalk, optic chiasm and hypothalamus. Normal tectal plate and pineal gland. Normal midbrain, leidy and medulla. Normal cerebellum. MRI/Brain without Contrast IMPRESSION: Acute foci of infarctions involving the left thalamus and right occipital lobe. Consider embolic and multifocal etiologies. Chronic left frontal, occipital and cerebellar infarcts. Electronically Signed: Sindi Mauricio MD at 11:50 EST Tel , Service support ,
[2021-02-22 09:39] LABS: Hemoglobin A1c 9.1 % (3.8-5.6)
[2021-02-22 12:31] LABS: Bedside Glucose 361 mg/dL (70-110)
[2021-02-22] MEDS: Glucerna Shake 120 ML LIQUID PO ×3 (12:39→20:24)
--- NOTE | 2021-02-22 14:53 | CASEMGMT ---
KAVEH met with patient's , Luci. Introduced self and role at [facility]. KAVEH let Luci know that therapy is recommending patient go somewhere for rehab. Luci said she prefers he go somewhere for rehab. She went to [facility] earlier today and they do have a bed available. KAVEH let her know SW will send the referral right now. KAVEH faxed the referral to [facility] and also left a voice mail for Breann. KAVEH will also work on obtaining insurance authorization. Bailey LIM
--- NOTE | 2021-02-22 15:05 | PN.HOSP_ITS ---
Documented by User: Ilir PEDRAZA 02/22/21 15:27 Subjective Subjective Patient is an 85-year-old male lying in a chair, alert and oriented to self. Unable to assess patient condition as he is chronically confused due to dementia. Patient history and decision making obtained through . Objective Data Objective Data Vital Signs: Vital Signs Temp Pulse Resp BP Pulse Ox 98.7 F 103 H 14 133/68 H 100 02/22/21 14:30 02/22/21 14:30 02/22/21 14:30 02/22/21 14:30 02/22/21 14:30 Oxygen Delivery Method Room Air Weight: 204 lb 9.423 oz Body Mass Index (BMI) 27.7 Intake & Output: Intake and Output for Last 24 Hours 02/20/21 02/21/21 02/22/21 23:59 23:59 23:59 Intake Total 1102.5 / 1102.5 Balance 1102.5 / 1102.5 Medical Nutrition Assessment Dietitian: Malnutrition Criteria Met Start: 02/22/21 10:27 Freq: Status: Active Protocol: Document 02/22/21 10:27 JAYLA (Rec: 02/22/21 10:27 SLA [id number]) Nutrition Malnutrition Evidence of Malnutrition Exists Yes Malnutrition (severe): Chronic Evidenced By Suboptimal Energy Intake ( Severe),Weight Loss (Severe) Clinical Problem Altered Nutrient-Related Laboratory Values Etiology related to diabetes and cardiac dysfunction Signs/Symptoms as evidenced by gluc 265, trig 299, VLDL 60, HDL 29 Status Active Problem Chronic Disease or Condition Related Malnutrition Etiology related to pt w/ dementia and issues with food not tasting good and subsequent decreased po intake at meals and not meeting estimated nutritional needs Signs/Symptoms as evidenced by <50% po intake x >5 days and 8.7% wt loss x 1 wk and 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4, Baso % (Auto) 0.5, Absolute Neuts (auto) 10.8 H, Absolute Lymphs (auto) 1.38, Nucleated RBC % 0 02/21/21 15:25: Sodium 136, Potassium 4.4, Chloride 104, Carbon Dioxide 27.0, Anion Gap 5, BUN 63 H, Creatinine 2.91 H, Estim Creat Clear Calc 21.11, Est GFR (MDRD) Af Amer 27 L, Est GFR (MDRD) Non-Af 22 L, BUN/Creatinine Ratio 21.6 H, Glucose 257 H, Calcium 9.1, Troponin I High Sens 138 H* 02/21/21 15:50: PT 33.2 H, INR 3.4, APTT 74.1 H 02/21/21 17:40: Troponin I High Sens 130 H* 02/22/21 00:00: POC Glucose 327 H 02/22/21 05:08: WBC 16.3 H, RBC 4.11 L, Hgb 11.3 L, Hct 36.2 L, MCV 88.1, MCH 27.5, MCHC 31.2 L, RDW Std Deviation 48.8 H, RDW Coeff of Shen 15.2 H, Plt Count 342, MPV 9.4, Immature Gran % (Auto) 0.700, Neut % (Auto) 86.3 H, Lymph % (Auto) 4.7 L, Hodgeman % (Auto) 6.0, Eos % (Auto) 1.9, Baso % (Auto) 0.4, Absolute Neuts (auto) 14.0 H, Absolute Lymphs (auto) 0.76 L, Nucleated RBC % 0 02/22/21 05:08: PT 27.5 H, INR 2.7 02/22/21 05:08: Sodium 137, Potassium 4.3, Chloride 109 H, Carbon Dioxide 20.0 L , Anion Gap 8, BUN 61 H, Creatinine 2.57 H, Estim Creat Clear Calc 23.90, Est GFR (MDRD) Af Amer 31 L, Est GFR (MDRD) Non-Af 26 L, BUN/Creatinine Ratio 23.7 H , Glucose 265 H, Calcium 8.4 L, Triglycerides 299 H, Cholesterol 136, LDL Cholesterol 47, VLDL Cholesterol 60 H, HDL Cholesterol 29 L 02/22/21 05:08: Hemoglobin A1c 9.1 H 02/22/21 06:53: POC Glucose 280 H 02/22/21 12:20: POC Glucose 361 H Radiography Diagnostic Testing: Radiology Impression Brain CT 02/21/21 15:41 IMPRESSION: 1. Left cerebellar and left parietal occipital infarct, stable since 2 days prior but larger since 6 months prior, possibility of acute or subacute infarct extension is present. 2. Remote stable large left MCA infarct. N.B. : The above Results were Read Back by Hammad Palmer MD to carmen echols DO, and understanding confirmed on 02/21/2021 16:03:10 (ET). Electronically Signed: Hammad Palmer MD at 16:04 EST Tel , Service support , ADDENDUM: 02/21/21 1610 IMPRESSION: 1. Left cerebellar and left parietal occipital infarct, stable since 2 days prior but larger since 6 months prior, possibility of acute or subacute infarct extension is present. 2. Remote stable large left MCA infarct. N.B. : The above Results were Read Back by Hammad Palmer MD to carmen echols DO, and understanding confirmed on 02/21/2021 16:03:10 (ET). Electronically Signed: Hammad Palmer MD at 16:04 EST Tel , Service support , Head/Neck CTA 02/21/21 15:41 IMPRESSION: No evidence for focal vascular abnormality in the [place]. No evidence for significant stenosis in the carotid or vertebral arteries of the neck. Individualized dose optimization techniques were used for this CT. at 1616 Reported and signed by: Mackenzie Nguyen MD Electronically Signed: Mackenzie Nguyen MD at 16:15 EST Tel , Service support , ADDENDUM: 02/21/21 1625 IMPRESSION: No evidence for focal vascular abnormality in the [place]. No evidence for significant stenosis in the carotid or vertebral arteries of the neck. Individualized dose optimization techniques were used for this CT. at 1616 Reported and signed by: Mackenzie Nguyen MD N.B. : The above Results were Read Back by Mackenzie Nguyen MD to carmen echols DO, and understanding confirmed on 02/21/2021 16:18:46 (ET). Electronically Signed: Mackenzie Nguyen MD at 16:15 EST Tel , Service support , Chest X-Ray 02/21/21 16:45 IMPRESSION: Normal x-ray examination of the chest. Electronically Signed: Hammad Palmer MD at 17:55 EST Tel , Service support , Cervical Spine CT 02/21/21 17:40 IMPRESSION: Patent canal, no neural compression. Electronically Signed: Hammad Palmer MD at 18:23 EST Tel , Service support , Echocardiogram 02/21/21 17:40 Interpretation Summary Normal LV size. Mild concentric left ventricular hypertrophy. Left ventricular systolic function is normal. The estimated ejection fraction is 65 %. Previously negative bubble study Contrast injection was performed. The study was technically difficult. Ordering Physician: Payam Blanc Referring Physician: MD Batsheva Chavo Performed By: David Garnica RCS Brain MRI 02/22/21 09:30 IMPRESSION: Acute foci of infarctions involving the left thalamus and right occipital lobe. Consider embolic and multifocal etiologies. Chronic left frontal, occipital and cerebellar infarcts. Electronically Signed: Sindi Mauricio MD at 11:50 EST Tel , Service support , ADDENDUM: 02/22/21 1203 IMPRESSION: Acute foci of infarctions involving the left thalamus and right occipital lobe. Consider embolic and multifocal etiologies. Chronic left frontal, occipital and cerebellar infarcts. N.B. : The above Results were Read Back by Sindi Mauricio MD to Best Gooden RN, and understanding confirmed on 02/22/2021 11:56:07 (ET). Electronically Signed: Sindi Mauricio MD at 11:50 EST Tel , Service support , Physical Exam Const alert and no apparent distress HEENT head/scalp atraumatic and moist oral mucous membranes Head and Scalp: normocephalic Eyes PERRL, EOMs intact bilaterally and conjunctivae normal Neck no lymphadenopathy, supple and no JVD Resp normal respiratory effort, no retractions, no use of accessory muscles and clear to auscultation bilaterally Cardio regular rhythm, no murmurs and no JVD Rate: tachycardic GI normal to inspection, nondistended, normoactive bowel sounds, soft to palpation and non-tender Extremity normal to inspection, full ROM and no clubbing, cyanosis or edema Skin no rashes or lesions noted, no wounds, skin turgor normal and no jaundice Neuro CN's II-XII intact bilaterally Psych affect normal Assessment & Plan Assessment/Plan (1) CVA (cerebral vascular accident): QUALIFIERS: CVA mechanism: unspecified Qualified Code(s): I63.9 - Cerebral infarction, unspecified (2) Elevated INR: PLAN: Day 1 Discharge planning: Patient to potentially discharge to [facility] for ongoing therapy. Case management and social work following. 1) acute CVA Brain MRI demonstrated acute infarctions involving the left thalamus and right occipital region. [facility] telemetry neurology consult obtained and recommendations are as follows: Obtain TSH, D-dimer, consider switching Coumadin to Eliquis, initiate high intensity statin, neurology follow-up as an outpatient. Patient's reports that she can no longer care for her and would like her place in a skilled facility for ongoing therapy. 2) CKD stage IV Creatinine currently 2.5, was 2.3 on admission and 2.9 yesterday however patient did receive CTA of the head and neck with contrast which would explain the elevation. Kidney function has improved from day prior, will continue IV fluids and continue to hold Lasix and lisinopril. Continue to monitor BMP. 3) coagulopathy Resolved, INR currently 2.7. Consider switching patient from warfarin to Eliquis. 4) Diabetes mellitus type 2 Hold home medications, continue Accu-Cheks with sliding scale insulin. 5) vascular dementia Complicates #1. Patient follows with geriatric physician. 6) elevated troponins Elevated on admission. Echocardiogram obtained and demonstrated normal LV size and systolic function with an estimated EF of 65% with negative bubble study. Echocardiogram seems to be the same from prior study conducted in 2016. DVT prophylaxis - Lovenox, renally dosed Patient seen by Ilir Hughes PA-C, under the supervision of Dr. Dent. Documented by User: Dr. Alfred Dent MD 02/22/21 16:50 Objective Data Lab / Micro Data Result Diagrams: 02/22/21 05:08 02/22/21 05:08 Charges/Coding Addendum Addendum: Dr. Dent: I personally reviewed the chart and examined the patient, and agree with the above findings. 85-year-old male presented from home with weakness after a fall. He had recently been in the hospital 2 days ago for a fall and was sent home and then comes back with 2 new strokes. Apparently on comparative read this was noticed on the CT scan on 02/19/2021 as well. MRI confirms findings. Echo was unremarkable. [facility] neurology was consulted, they recommend transitioning from Coumadin to Eliquis. He says that he has Coumadin for an abnormal heartbeat however there is no documentation of A. fib. Based on age and creatinine, Eliquis that to be a 2.5 p.o. twice daily. INR is currently 2.7. Visit Charges Inpatient E&M: 46313 Subs Hosp L2
--- NOTE | 2021-02-22 15:16 | NURSING ---
This RN reviewed SN charting
--- NOTE | 2021-02-22 15:20 | CASEMGMT ---
SW did not complete a PHQ9 as patient has Dementia and is confused. 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
[2021-02-22 17:25] LABS: Bedside Glucose 370 mg/dL (70-110)
[2021-02-22] MEDS: Enoxaparin 30 MG/0.3 ML Syringe SC (17:26)
[2021-02-22] MEDS: Atorvastatin Calcium 80 MG Tablet PO ×2 (17:26→20:24)
[2021-02-22 17:36] LABS: D-Dimer Quantitative (DVT/PE) 2.86 FEU/ug/m (0.27-0.49)
[2021-02-22 20:46] LABS: Bedside Glucose 286 mg/dL (70-110)
[2021-02-23] VITALS (8 sets, daily range): BP systolic 113–141; BP diastolic 65–80; PULSE 80–100; RESP 14–18; TEMP 36.7–37.1; O2SAT 90–99; BMI 27.7
[2021-02-23 06:01] LABS: Bedside Glucose 222 mg/dL (70-110)
[2021-02-23] MEDS: Insulin Lispro 100 UNIT/ML INSULN.PEN SC ×2 (06:31→11:21)
[2021-02-23 08:03] LABS: Absolute Lymphocyte Count 1.19 X10^3/uL (0.83-4.51); Basophil# 0.05 X10^3/uL; Basophil% 0.3 % (0-1); Eosinophil# 0.99 X10^3/uL; Eosinophils% 6.9 % (0-5); Hemoglobin 10.3 g/dL (13.0-16.5); Lymphocyte # 1.19 X10^3/ul (0.83-4.51); Lymphocyte % 8.3 % (19-41); Mean Corp Hgb Conc 31.2 g/dL (32-36); Mean Corpuscular Hgb 27.2 pg (27.0-32.0); Mean Corpuscular Volume 87.3 fL (80-94); Mean Platelet Vol. 9.9 fl (6.2-12.0); Monocyte# 0.92 X10^3/uL; Monocyte% 6.4 % (0-10); NRBC Flagged by Analyzer 0 % (0-5); Neutrophil % 77.1 % (47-70); Platelet Count 361 K/mm3 (150-450); RBC Distribution Width CV 15.6 % (11.6-14.6); RBC Distribution Width SD 49.1 fl (35.1-43.9); Red Blood Count 3.78 M/mm3 (4.6-6.2); White Blood Count 14.3 K/mm3 (4.4-11.0)
[2021-02-23] MEDS: Docusate Sodium 100 MG Capsule PO (08:23)
[2021-02-23] MEDS: Multivitamins,Therapeutic Tablet 1 TABLET PO (08:23)
[2021-02-23] MEDS: Allopurinol 300 MG Tablet PO (08:23)
[2021-02-23] MEDS: Aspirin E.C. 81 MG Tablet PO (08:23)
[2021-02-23] MEDS: Atorvastatin Calcium 80 MG Tablet PO (08:27)
[2021-02-23] MEDS: Glucerna Shake 120 ML LIQUID PO ×2 (08:27→14:18)
[2021-02-23 08:35] LABS: Anion Gap 8 (5-15); BUN 64 mg/dL (7-18); BUN/Creat Ratio 26.1 RATIO (10-20); Calcium,Total 8.5 mg/dL (8.5-10.1); Chloride 110 mmol/L (98-107); Creatinine, Serum 2.45 mg/dL (0.70-1.30); EST Glomerular Filtration Rate 27 mL/min (>60); Est Glom Filt Rate - Afr Amer 33 mL/min (>60); Estimated Creatinine Clearance 25.07 ml/min; Glucose 209 mg/dL (74-106); Potassium 4.1 mmol/L (3.5-5.1); Sodium Level 140 mmol/L (136-145); Thyroid Stim Hormone (TSH) 1.67 uIU/mL (0.358-3.74)
--- NOTE | 2021-02-23 10:00 | CASEMGMT ---
Palliative referral faxed per Dr. Dent order. Tam FORMAN CM
--- NOTE | 2021-02-23 10:30 | NM_ITS ---
CLINICAL: 85-year-old male with history of elevation of the d-dimer. VENTILATION-PERFUSION LUNG SCINTIGRAPHY COMPARISON: Plain film chest radiograph report 02/21/2021 FINDINGS: The patient was administered 47.8 mCi 99m Tc DTPA aerosol. The aerosol ventilation study demonstrates heterogeneous ventilation identified throughout the bilateral lung edmonds without corresponding radiographic changes defined on plain film chest x-ray dated 02/21/2021. Central clumping of the aerosol is noted in the bilateral hemithorax. Following the intravenous administration of 5.6 mCi of 99m Tc MAA the pulmonary perfusion study reveals uniform perfusion throughout both lung edmonds. There are no segmental or subsegmental perfusion defects identified. There are no ventilation-perfusion mismatches observed. NM/Lung Scan Vent/Perf IMPRESSION: 1. NORMAL 99m Tc MAA pulmonary perfusion imaging examination, according to PIOPED II interpretive criteria. (Sotsman et al, Radiology 246: 941, 2008 Sosussy et al, J Nucl Med 49: 1741, 2008). 2. Central clumping of the aerosol may be secondary to obstructive airway mechanics and or clinical tachypnea. Electronically Signed: Kaleb Rodrigez DO at 12:48 EST Tel , Service support ,
--- NOTE | 2021-02-23 11:21 | CASEMGMT ---
KAVEH spoke with Breann from [facility] and they can accept patient. KAVEH called [employer], the company that handles insurance authorizations for [place]. KAVEH spoke with Mouna, a nurse reviewer. KAVEH answered all of her questions regarding patient, his diagnoses, current and previous functioning. Patient was approved to go to [facility]. Authorization number is [id number]. KAVEH notified physician and patient can be discharged to [facility] today. Bailey LIM
--- NOTE | 2021-02-23 11:23 | TREXTCAR_ITS ---
Documented by User: Ilir PEDARZA 02/23/21 12:32 Diet 02/22/21 11:24 Diet: Cardiac: Calorie-Controlled Food consistency:: Pureed Liquid Consistency:: Regular/Thin Is pt able to select menu?: No Diet Comments: distant supervision/verbal cues for small bites/sips, slow rate of intake How many daily calories?: 2000 calorie Therapies Physical Therapy: Eval and Treat Occupational Therapy: Eval and Treat Problem/Diagnosis (1) CVA (cerebral vascular accident): Status: Acute (2) Elevated INR: Status: Acute Allergies/Procedures Done in Hospital Allergies levofloxacin [From Levaquin] Allergy (Verified 02/19/21 13:43) Other LOC CHANGES metformin Adverse Reaction (Verified 02/19/21 13:43) Other KIDNEYS ACARB Adverse Reaction (Uncoded 02/19/21 13:43) Nausea Type of Care/Length of Stay Estimated LOS: Convalescent Care Less Than 30 days Type of Care Needed: Skilled Rehab Potential: Good Prognosis: Good Additional Orders/Day of Discharge Day of Discharge: 02/23/21 Dietary and Speech Recommendations Dietitian Recommendations/Changes: Will continue therapeutic diet as ordered Will order glucerna shake 4x/day with medpass Rec consider appetite nutrition d/t hx poor po intake Discharge Plan Admission Admit Date/Time: 02/21/21 16:59 Primary Reason for Your Visit: Stroke Attending Provider: Alfred Dent Primary Care Provider: Chavo Herman Consulting Providers: Krys Cabello ; Syed Raymond ; Manju Pringle ; Mena Patel ; Ava Jackson ; Fina Gupta NEUROSCIENCE SPECIALIST Discharge Orders/Prescriptions Prescriptions: New Eliquis 2.5 mg tablet 2.5 mg PO BID Qty: 60 RF: 0 insulin lispro 100 unit/mL cartridge 10 unit subcut TID Qty: 20 RF: 0 Continued multivitamin capsule capsule 1 cap PO QDAY RF: 0 aspirin [Adult Low Dose Aspirin] 81 mg tablet,delayed release (DR/EC) 81 mg PO BID RF: 0 lisinopril 20 MG tablet 30 mg PO DAILY RF: 0 allopurinol 300 MG tablet 300 mg PO DAILY RF: 0 tramadol 50 MG tablet 50 mg PO Q4H PRN PRN (Reason: Pain) Qty: 30 RF: 0 fish oil-dha-epa 1 EACH capsule 1 ea PO DAILY RF: 0 atorvastatin 80 MG tablet 80 mg PO DAILY RF: 0 Daily Defense Supplement 1 tab PO DAILY RF: 0 furosemide 20 mg tablet RF: 0 escitalopram oxalate 10 mg tablet RF: 0 memantine 5 mg tablet RF: 0 metoprolol tartrate 50 mg tablet RF: 0 Held Trulicity 1.5 mg/0.5 mL pen injector SUBCUT QWEEK RF: 0 Hold Instructions: Resume on 03/23/21. Hold while at [facility]. Invokana 100 mg Tablet 100 mg PO DAILY RF: 0 Hold Instructions: Resume on 03/23/21. Hold while at [facility]. Discontinued warfarin 4 mg tablet See Rx Instructions PO QDAY RF: 0 Referrals / Follow Up: Chavo Herman MD [Primary Care Provider] - Within 2 Weeks Disposition Disposition (needs filled in before D/C Order can be placed): Long Term Facility Documented by User: Dr. Alfred Dent MD 02/23/21 14:22 Allergies/Procedures Done in Hospital Allergies levofloxacin [From Levaquin] Allergy (Verified 02/19/21 13:43) Other LOC CHANGES metformin Adverse Reaction (Verified 02/19/21 13:43) Other KIDNEYS ACARB Adverse Reaction (Uncoded 02/19/21 13:43) Nausea Discharge Plan Admission Admit Date/Time: 02/21/21 16:59 Primary Reason for Your Visit: Stroke Attending Provider: Alfred Dent Primary Care Provider: Chavo Herman Consulting Providers: Krys Cabello ; Syed Raymond ; Manju Pringle ; Mena Patel ; Ava Jackson ; Fina Gupta NEUROSCIENCE SPECIALIST Discharge Orders/Prescriptions Prescriptions: New Eliquis 2.5 mg tablet 2.5 mg PO BID Qty: 60 RF: 0 insulin lispro 100 unit/mL cartridge 10 unit subcut TID Qty: 20 RF: 0 Continued multivitamin capsule capsule 1 cap PO QDAY RF: 0 aspirin [Adult Low Dose Aspirin] 81 mg tablet,delayed release (DR/EC) 81 mg PO BID RF: 0 lisinopril 20 MG tablet 30 mg PO DAILY RF: 0 allopurinol 300 MG tablet 300 mg PO DAILY RF: 0 tramadol 50 MG tablet 50 mg PO Q4H PRN PRN (Reason: Pain) Qty: 30 RF: 0 fish oil-dha-epa 1 EACH capsule 1 ea PO DAILY RF: 0 atorvastatin 80 MG tablet 80 mg PO DAILY RF: 0 Daily Defense Supplement 1 tab PO DAILY RF: 0 furosemide 20 mg tablet RF: 0 escitalopram oxalate 10 mg tablet RF: 0 memantine 5 mg tablet RF: 0 metoprolol tartrate 50 mg tablet RF: 0 Held Trulicity 1.5 mg/0.5 mL pen injector SUBCUT QWEEK RF: 0 Hold Instructions: Resume on 03/23/21. Hold while at [facility]. Invokana 100 mg Tablet 100 mg PO DAILY RF: 0 Hold Instructions: Resume on 03/23/21. Hold while at [facility]. Discontinued warfarin 4 mg tablet See Rx Instructions PO QDAY RF: 0 Referrals / Follow Up: Chavo Herman MD [Primary Care Provider] - Within 2 Weeks Disposition Disposition (needs filled in before D/C Order can be placed): Long Term Facility
[2021-02-23 11:40] LABS: Bedside Glucose 302 mg/dL (70-110)
--- NOTE | 2021-02-23 13:19 | CASEMGMT ---
KAVEH called patient's Luci. SW let Luci know that [facility] can take patient and insurance approved. SW let her know that patient will go today. SW can let her know when SW has transportation arranged. Luci said she never said anything to patient about going to a senior care and she is not sure if anyone else did. SW let Luci know that SW can talk with him. 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 SW met with patient. Introduced self and role at [facility]. SW explained to patient that therapy and his feel he needs a short term rehab stay. SW explained that his went to [facility] in the past and she felt like this would be best place for him. Patient asked if his was coming into the hospital today. SW let him know that it sounded like she was going to meet him at [facility] when he gets there today. KAVEH told him SW plans on calling her when a time has been arranged. He verbalized understanding. Plan: d/c to [facility] under skilled level of care. Bailey LIM
--- NOTE | 2021-02-23 14:28 | PCM.DC.SUM ---
Documented by User: Ilir PEDRAZA 02/23/21 14:36 Providers Date of Admission: 02/21/21 Primary Care Physician: Dr. Chavo Herman MD Consultations 02/22/21 17:15 Consult: Hospice / Palliative Care Routine Consulting Provider: [facility] Reason for Consult: CVA EMERGENT Consult: No MD Notified: Yes Date Notified: 02/22/21 Time Notified: 17:15 Method of Notification: n Comments:: palliative Reason For Visit: CVA Diagnosis Discharge Diagnosis (1) CVA (cerebral vascular accident): Status: Acute Code(s): I63.9 - Cerebral infarction, unspecified Qualifiers: CVA mechanism: unspecified Qualified Code(s): I63.9 - Cerebral infarction, unspecified (2) Elevated INR: Status: Acute Code(s): R79.1 - Abnormal coagulation profile Medications at Discharge Home Medications allopurinol 300 mg PO DAILY 07/31/15 lisinopril 30 mg PO DAILY 07/31/15 tramadol 50 mg PO Q4H PRN PRN #30 tab 08/04/15 fish oil-dha-epa 1 ea PO DAILY 12/03/15 aspirin 81 mg tablet,delayed release 81 mg PO BID 04/19/17 multivitamin 1 cap PO QDAY 04/19/17 Daily Defense Supplement 1 tab PO DAILY 05/04/17 atorvastatin 80 mg PO DAILY 05/04/17 Invokana 100 mg PO DAILY 02/21/21 Trulicity mg SUBCUT QWEEK 02/21/21 escitalopram oxalate mg 02/21/21 furosemide 02/21/21 memantine mg 02/21/21 metoprolol tartrate 02/21/21 apixaban [Eliquis] 2.5 mg PO BID #60 tab 02/23/21 insulin lispro 10 unit SUBCUT TID #20 ml 02/23/21 Hospital Course Procedures 2-D Echocardiogram, Nuclear stress test and Transthoracic echo Summary of Care Provided Minutes Spent on Discharge: 35 Hospital Course: Patient is an 85-year-old male who was admitted to the hospital on 02/21/2021 for evaluation and management of strokelike symptoms. Brain MRI was obtained and demonstrated to acute infarctions involving the left thalamus and right occipital region. Echocardiogram was obtained and demonstrated an EF of 65% with negative bubble study. Echocardiogram was more or less the same from prior study conducted in 2016. SOC teleneurology consult obtained and recommended that patient obtain physical therapy and Occupational Therapy evaluation, switch anticoagulation from Coumadin to Eliquis and initiate high intensity statin as well as obtaining outpatient neurology follow-up. Patient's physical therapy evaluation revealed that patient did qualify for skilled therapy, which his agreed that patient should obtain due to admitting that she was unable to care for her at home. Patient to discharge to [facility] nursing [facility] today. Other home medications were continued, although patient's home diabetic regimen was held while in detention due to detention primary access to these medications. Patient was discharged on insulin. On recommendation from SOC, a D-dimer was obtained which was elevated. VQ scan was obtained due to acute kidney injury on CKD stage IV and did not reveal any evidence of pulmonary embolism. Patient seen by Ilir Hughes PA-C, under the supervision of Dr. Dent. Physical Exam Narrative Patient is an 85-year-old male lying in bed, alert and oriented to self. Patient cannot provide much insight into his current condition due to his baseline level of confusion from vascular dementia. Does not appear to be in acute distress. Const alert Orientation / Consciousness: oriented to person Exam Limitations: altered mental status HEENT normocephalic, head/scalp atraumatic and hearing grossly normal bilaterally Eyes PERRL, EOMs intact bilaterally and conjunctivae normal Neck no lymphadenopathy, supple and no JVD Resp normal respiratory effort, no retractions, no use of accessory muscles and clear to auscultation bilaterally Cardio regular rate, regular rhythm, no murmurs and no JVD GI normal to inspection, nondistended, normoactive bowel sounds, soft to palpation and non-tender Extremity normal to inspection, full ROM and no clubbing, cyanosis or edema Skin no rashes or lesions noted, no wounds and skin turgor normal Neuro Neuro Narrative: Unable to assess due to baseline level of confusion. Psych Psych Narrative: Unable to assess due to baseline level of confusion. Medical Records Data Medical Nutrition Assessment Dietitian: Malnutrition Criteria Met Start: 02/22/21 10:27 Freq: Status: Active Protocol: Document 02/22/21 10:27 JAYLA (Rec: 02/22/21 10:27 [facility] [id number]) Nutrition Malnutrition Evidence of Malnutrition Exists Yes Malnutrition (severe): Chronic Evidenced By Suboptimal Energy Intake ( Severe),Weight Loss (Severe) Clinical Problem Altered Nutrient-Related Laboratory Values Etiology related to diabetes and cardiac dysfunction Signs/Symptoms as evidenced by gluc 265, trig 299, VLDL 60, HDL 29 Status Active Problem Chronic Disease or Condition Related Malnutrition Etiology related to pt w/ dementia and issues with food not tasting good and subsequent decreased po intake at meals and not meeting estimated nutritional needs Signs/Symptoms as evidenced by <50% po intake x >5 days and 8.7% wt loss x 1 wk and 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 Status Active Problem Recommendation Dietitian Recommendations/Changes Will continue therapeutic diet as ordered Will order glucerna shake 4x/ day with medpass Rec consider appetite nutrition d/t hx poor po intake Weight / BMI Weight Weight: 204 lb 9.423 oz Body Mass Index (BMI) 27.7 ABG / Lab / Microbiology Data Result Diagrams: 02/23/21 06:24 02/23/21 06:24 Laboratory: Laboratory Results - last 24 hr 02/22/21 17:02: D-Dimer Quant (PE/DVT) 2.86 H* 02/22/21 17:20: POC Glucose 370 H 02/22/21 20:35: POC Glucose 286 H 02/23/21 05:50: POC Glucose 222 H 02/23/21 06:24: Sodium 140, Potassium 4.1, Chloride 110 H, Carbon Dioxide 22.0, Anion Gap 8, BUN 64 H, Creatinine 2.45 H, Estim Creat Clear Calc 25.07, Est GFR (MDRD) Af Amer 33 L, Est GFR (MDRD) Non-Af 27 L, BUN/Creatinine Ratio 26.1 H, Glucose 209 H, Calcium 8.5, TSH 1.67 02/23/21 06:24: WBC 14.3 H, RBC 3.78 L, Hgb 10.3 L, Hct 33.0 L, MCV 87.3, MCH 27.2, MCHC 31.2 L, RDW Std Deviation 49.1 H, RDW Coeff of Shen 15.6 H, Plt Count 361, MPV 9.9, Immature Gran % (Auto) 1.000 H, Neut % (Auto) 77.1 H, Lymph % (Auto) 8.3 L, [place]own[place] % (Auto) 6.4, Eos % (Auto) 6.9 H, Baso % (Auto) 0.3, Absolute Neuts (auto) 11.0 H, Absolute Lymphs (auto) 1.19, Nucleated RBC % 0 02/23/21 11:20: POC Glucose 302 H Microbiology: Microbiology 02/23/21 12:42 Nasal Secretion SARS-CoV-2 Antigen (Rapid) - Final Radiography Diagnostic Testing: Radiology Impression Lung Scan-VQ NM 02/23/21 10:30 IMPRESSION: 1. NORMAL 99m Tc MAA pulmonary perfusion imaging examination, according to PIOPED II interpretive criteria. (Sotsman et al, Radiology 246: 941, 2008 Sosussy et al, J Nucl Med 49: 1741, 2008). 2. Central clumping of the aerosol may be secondary to obstructive airway mechanics and or clinical tachypnea. Electronically Signed: Kaleb Rodrigez DO at 12:48 EST Tel , Service support , Meaningful Use Info Meaningful Use Diagnoses (Choose all that apply): Ischemic CVA CVA Therapy Assessed for PT,OT and/or ST?: Yes Ischemic Stroke Antithrombotic order at d/c?: Yes Dx of Atrial fib/flutter?: No Anticoagulant at discharge?: Yes Statins at discharge?: Yes Primary Dx Acute Ischemic CVA?: Yes IV tPA ordered during stay?: No Reason IV t-PA not ordered: Treatment not Indicated Discharge Plan Admission Admit Date/Time: 02/21/21 16:59 Primary Reason for Your Visit: Stroke Attending Provider: Alfred Dent Primary Care Provider: Chavo Herman Consulting Providers: Krys Cabello ; Syed Raymond ; Manju Pringle ; Mena Patel ; Ava Jackson ; Fina Gupta SOW MANAGER Discharge Orders/Prescriptions Prescriptions: New Eliquis 2.5 mg tablet 2.5 mg PO BID Qty: 60 RF: 0 insulin lispro 100 unit/mL cartridge 10 unit subcut TID Qty: 20 RF: 0 Continued multivitamin capsule capsule 1 cap PO QDAY RF: 0 aspirin [Adult Low Dose Aspirin] 81 mg tablet,delayed release (DR/EC) 81 mg PO BID RF: 0 lisinopril 20 MG tablet 30 mg PO DAILY RF: 0 allopurinol 300 MG tablet 300 mg PO DAILY RF: 0 tramadol 50 MG tablet 50 mg PO Q4H PRN PRN (Reason: Pain) Qty: 30 RF: 0 fish oil-dha-epa 1 EACH capsule 1 ea PO DAILY RF: 0 atorvastatin 80 MG tablet 80 mg PO DAILY RF: 0 Daily Defense Supplement 1 tab PO DAILY RF: 0 furosemide 20 mg tablet RF: 0 escitalopram oxalate 10 mg tablet RF: 0 memantine 5 mg tablet RF: 0 metoprolol tartrate 50 mg tablet RF: 0 Held Trulicity 1.5 mg/0.5 mL pen injector SUBCUT QWEEK RF: 0 Hold Instructions: Resume on 03/23/21. Hold while at halfway. Invokana 100 mg Tablet 100 mg PO DAILY RF: 0 Hold Instructions: Resume on 03/23/21. Hold while at halfway. Discontinued warfarin 4 mg tablet See Rx Instructions PO QDAY RF: 0 Referrals / Follow Up: Chavo Herman MD [Primary Care Provider] - Within 2 Weeks Disposition Disposition (needs filled in before D/C Order can be placed): Jail Facility Documented by User: Dr. Alfred Dent MD 02/23/21 15:58 Providers Date of Admission: 02/21/21 Reason For Visit: CVA Medications at Discharge Home Medications allopurinol 300 mg PO DAILY 07/31/15 lisinopril 30 mg PO DAILY 07/31/15 tramadol 50 mg PO Q4H PRN PRN #30 tab 08/04/15 fish oil-dha-epa 1 ea PO DAILY 12/03/15 aspirin 81 mg tablet,delayed release 81 mg PO BID 04/19/17 multivitamin 1 cap PO QDAY 04/19/17 Daily Defense Supplement 1 tab PO DAILY 05/04/17 atorvastatin 80 mg PO DAILY 05/04/17 Invokana 100 mg PO DAILY 02/21/21 Trulicity mg SUBCUT QWEEK 02/21/21 escitalopram oxalate mg 02/21/21 furosemide 02/21/21 memantine mg 02/21/21 metoprolol tartrate 02/21/21 apixaban [Eliquis] 2.5 mg PO BID #60 tab 02/23/21 insulin lispro 10 unit SUBCUT TID #20 ml 02/23/21 ABG / Lab / Microbiology Data Result Diagrams: 02/23/21 06:24 02/23/21 06:24 Discharge Plan Admission Admit Date/Time: 02/21/21 16:59 Primary Reason for Your Visit: Stroke Attending Provider: Alfred Dent Primary Care Provider: Chavo Herman Consulting Providers: Krys Cabello ; Syed Raymond ; Manju Pringle ; Mena Patel ; Ava Jackson ; Fina Gupta SOW MANAGER Discharge Orders/Prescriptions Prescriptions: New Eliquis 2.5 mg tablet 2.5 mg PO BID Qty: 60 RF: 0 insulin lispro 100 unit/mL cartridge 10 unit subcut TID Qty: 20 RF: 0 Continued multivitamin capsule capsule 1 cap PO QDAY RF: 0 aspirin [Adult Low Dose Aspirin] 81 mg tablet,delayed release (DR/EC) 81 mg PO BID RF: 0 lisinopril 20 MG tablet 30 mg PO DAILY RF: 0 allopurinol 300 MG tablet 300 mg PO DAILY RF: 0 tramadol 50 MG tablet 50 mg PO Q4H PRN PRN (Reason: Pain) Qty: 30 RF: 0 fish oil-dha-epa 1 EACH capsule 1 ea PO DAILY RF: 0 atorvastatin 80 MG tablet 80 mg PO DAILY RF: 0 Daily Defense Supplement 1 tab PO DAILY RF: 0 furosemide 20 mg tablet RF: 0 escitalopram oxalate 10 mg tablet RF: 0 memantine 5 mg tablet RF: 0 metoprolol tartrate 50 mg tablet RF: 0 Held Trulicity 1.5 mg/0.5 mL pen injector SUBCUT QWEEK RF: 0 Hold Instructions: Resume on 03/23/21. Hold while at halfway. Invokana 100 mg Tablet 100 mg PO DAILY RF: 0 Hold Instructions: Resume on 03/23/21. Hold while at halfway. Discontinued warfarin 4 mg tablet See Rx Instructions PO QDAY RF: 0 Referrals / Follow Up: Chavo Herman MD [Primary Care Provider] - Within 2 Weeks Disposition Disposition (needs filled in before D/C Order can be placed): Jail Facility Charges/Coding Addendum Addendum: Dr. Dent: I personally reviewed the chart and examined the patient, and agree with the above findings. 85-year-old male presented from home with weakness after a fall. He had recently been in the hospital 2 days ago for a fall and was sent home and then comes back with 2 new strokes. Apparently on comparative read this was noticed on the CT scan on 02/19/2021 as well. MRI confirms findings. Echo was unremarkable. [facility] neurology was consulted, they recommend transitioning from Coumadin to Eliquis. He says that he has Coumadin for an abnormal heartbeat however there is no documentation of A. fib. Based on age and creatinine, Eliquis that to be a 2.5 p.o. twice daily. INR is currently 2.7. 02/23/2021: Doing well today seems a lot more alert and oriented to where he is and what year it is. He is also aware as to why he is here. He is aware that he is going to a detention and he actually wants to the detention because he wants to get stronger she can go back to the [facility] with his friends. Will continue with Eliquis at 2.5 mg p.o. twice daily and discontinue the Coumadin especially given the embolic source. There is no evidence of A. fib but he has commented that he was told that he had an irregular heart rhythm. In discussion with his he was started on Coumadin 5 years ago because of his stroke at that time. I discussed with him the plan for discharge today and he expressed understanding of the risk and benefits of going to SNF and would like to go to SNF today. Visit Charges Inpatient E&M: [id number] Disch Hosp
--- NOTE | 2021-02-23 14:49 | CASEMGMT ---
KAVEH faxed orders to [facility] as well as negative COVID and insurance authorization paper. KAVEH arranged for patient to get picked up at 1530 via [employer] van. KAVEH notified RN, patient's , admin secretary, and left a message for Breann at [facility]. KAVEH also left Breann a message asking her to get in touch with patient's per her request. KAVEH completed a convalescent on [facility]. Plan: d/c to [facility] under skilled level of care on a convalescent stay. [facility] transported via [facility]. Bailey LIM
== END 2021-02-23 16:55 | disposition skilled nursing facility (03) | DRG 64 ==
LOC: ED 16:23 → PCU 17:52
PROVIDERS: Physician Assistant; Emergency Provider Emergency Medicine; PCP Family Medicine; Visit Provider Family Medicine
DX: I63.9 Cerebral infarction, unspecified (principal); E43 Unspecified severe protein-calorie malnutrition; S32.019A Unspecified fracture of first lumbar vertebra, initial encounter for closed fracture; S32.029A Unspecified fracture of second lumbar vertebra, initial encounter for closed fracture; S32.039A Unspecified fracture of third lumbar vertebra, initial encounter for closed fracture; N18.4 Chronic kidney disease, stage 4 (severe); D68.9 Coagulation defect, unspecified; N17.9 Acute kidney failure, unspecified; G83.11 Monoplegia of lower limb affecting right dominant side; G83.21 Monoplegia of upper limb affecting right dominant side; R47.81 Slurred speech; R47.1 Dysarthria and anarthria; T45.515A Adverse effect of anticoagulants, initial encounter; R79.89 Other specified abnormal findings of blood chemistry; Y92.9 Unspecified place or not applicable; W19.XXXA Unspecified fall, initial encounter; Z91.81 History of falling; Y93.9 Activity, unspecified; Y92.009 Unspecified place in unspecified non-institutional (private) residence as the place of occurrence of the external cause; S00.03XA Contusion of scalp, initial encounter; S30.810A Abrasion of lower back and pelvis, initial encounter; R79.1 Abnormal coagulation profile; W10.9XXA Fall (on) (from) unspecified stairs and steps, initial encounter; E66.9 Obesity, unspecified; Z68.30 Body mass index [BMI] 30.0-30.9, adult; I44.4 Left anterior fascicular block; E78.5 Hyperlipidemia, unspecified; Z79.82 Long term (current) use of aspirin; R29.707 NIHSS score 7; E11.22 Type 2 diabetes mellitus with diabetic chronic kidney disease; E78.00 Pure hypercholesterolemia, unspecified; F01.50 Vascular dementia, unspecified severity, without behavioral disturbance, psychotic disturbance, mood disturbance, and anxiety; I12.9 Hypertensive chronic kidney disease with stage 1 through stage 4 chronic kidney disease, or unspecified chronic kidney disease; M10.9 Gout, unspecified; Z66 Do not resuscitate; Z85.828 Personal history of other malignant neoplasm of skin; Z86.73 Personal history of transient ischemic attack (TIA), and cerebral infarction without residual deficits; Z79.01 Long term (current) use of anticoagulants; Z79.84 Long term (current) use of oral hypoglycemic drugs; Z79.899 Other long term (current) drug therapy
CPT/HCPCS: 36415; 70450; 70496; 70498; 70551; 71045; 72100; 72125; 72170; 78582; 80048; 80061; 81001; 82962; 83036; 84443; 84484; 85025; 85379; 85610; 85730; 87426; 92526; 92610; 93005; 93306; 94762; 97162; 97166; 97802; 99285; 99406; A9540; A9567; J7030; Q9957; Q9967; A4216; C8929; J3490

== ENCOUNTER 2021-07-13 14:00 | Outpatient (RCR) | payer MEDICARE, SELFPAY ==
--- NOTE | 2021-04-29 13:19 | HP.OTEVAL_ITS ---
Patient's Visit Information SUSAN ACOSTA is a 85 year old M, referred to Occupational Therapy by Dr. Chavo Herman MD, with a diagnosis of CVA right side weaknes. Date of Evaluation: 04/29/21 Occupational Therapist: Mandy Sellers, OTR/Abiel, CHT - Subjective This 85 year old male was seen for OT eval with a dx of CVA speaks for pt as he is poor historian. states on fall down stairs (about 2) - went to ER and was d/c home and told to see family dr. pts states he had difficulty raising his right arm- a few days later- returned to hospital with MRI indicating x 2 CVA- pt did have old stroke July of 2015. Pt in Rehab for 4 weeks. pt initiated out-pt physical therapy in [facility] almost three weeks ago- going 2x week for an hour. pt states his right side of his body is not feeling right and his movements are slower and demo with limited ROM - pt is right handed. pt would like to return to his mowing with his zero turn mower. - ADLs Dressing: Button shirt Comments: is helping Fasteners: Tie shoes, Buttons, Zippers Eating: Bring food to mouth, Use silverware, Cut food Comments: sponge bath Toileting: Manage clothing Yard: Mow lawn Comments: per pt unable to step over bathtub so she is sponge bathing. pt was ambulating with straight cane PLOF. lives with in ranch home two entry with railing. is assisting pt with all ADLs at this time. this is a decline from pt at a IND. level for bathing/dressing and performing yard work (mowing). pt has dementia from initial stroke speaks for pts- does states pts word finding when communicating is worse since his fall and stroke. - Pain right elbow/forearm 4 Pain Intensity Range: 4, 5 - ROM Shoulder: right flex 70 left 150 Elbow: right/left WNL ROM Comments: pt demo with slow movement patterns with digits of right hand but can form a light composite fist. - Strength Radiation Monitor: right 20# left 40# Lateral Pinch: right 2# left 8# Tripod Pinch: right unable left 4# Strength Comments: pt demo limited fine motor coordination. - In-Hand Manipulation Finger to Palm Translation: Severe - Right, Mild - Left Palm to Finger Translation: Severe - Right, Unable - Right, Mild - Left Shift: Severe - Right, Mild - Left Rotation: Severe - Right, Mild - Left Comments: writing name poor ability. pt demo a decline in distal finger control increasing need of pt using his whole arm with for movement patters when writing name - Stroke Specific Quality of Life Total SS-QOL Score: 123 - Quick DASH-Disab of Arm,Shoulder& Hand Quick DASH Score: 70.4525 - Goals Goal:: pt will demo a increase in right UE MMT 4+/5 to increase pts ind. with ADLs and IADls by d/c. pt will demo a increase in right handicraft or hobby shop manager strength to 35# or greater to increase pts ind with dressing/bathing etc. by d/c Goal:: pt will demo a increase in right shoulder flex to 150* or greater to increase pts ind. with dressing by d.c Goal:: pt will report right arm pain no greater than 1/10 with use of right hand with ADls and IADls. Goal:: pt will will demo the ability to manipulate buttons, zippers and snaps IND by d.c. pt will demo the ability to write name legibly with ad. pen by d/c. pt will demo the ability to poultry picker and hold coins to manipulate change ind. without dropping coins by d/c Goal:: pt will report a reduction of right UE pins and needles by 50% by d/c - Rehabilitation General Assessment: pt demo with a decline in dominate right UE strength and limited FMS since his dx of CVA.pt limited with botting, zippers and wrting- pts right UB limited ROM and strength increases need of assist from with bathing and dressing-- also reports pts word finding difficulties with communication. pt would benefit from skilled OT services 2x week for 8 weeks to assist pt in returning right UE and FMS to PLOF. Pt and pts was ed, on POC. Rehabilitation Potential: Good - Anticipated Interventions A/AAROM/PROM, Strengthening, Fine Motor Coord/Curtis, Neuro Reeducation, Education re Diagnosis, Caregiver Training - Visit Plan Frequency: 2x /Week Duration: 6 Weeks TEXT: Thank you for the opportunity to evaluate your patient. For Medicare and Medicare HMO plans, please review the plan of care and approve it. It will need to be FAXED BACK to us at [phone] for Medicare purposes. Please let me know if there are questions or concerns regarding this plan of care. Physician Signature: Date:
--- NOTE | 2021-05-11 11:59 | HP.PTEVAL ---
Patient's Visit Information SUSAN ACOSTA is a 85 year old M referred to Physical Therapy by Dr. Chavo Herman MD with a diagnosis of CVA. Date of Evaluation: 05/11/21 Physical Therapist: Payam Patel DPT, OCS, CSCS - Visit Plan Frequency: 2x /Week Duration: 4-6 Weeks Plan: 2x/week for 4-6 weeks for. 1. teach and progress LE strength adn core strength for HEP(progress to gym, home as patient desires). 2. Gait trraining with decreased AD. 3. Balance training funcitonally movements - Subjective Presents alone after OT today. He states he had CVA 5 yrs ago and another one more recently. Not sure how he gets them. Using wh walker now, doesn't think he did prior. not present. Lives with . One story house and a couple steps to enter woith two railings. Does not leave house by himself. is with him all the time. he stays home while she shops or he stays in the car. Gets in and out of bed himself. Bathroom by himself, needs help to clean up a little biti can't explain it Has grab bar in bathroom. basically dresses himself but can need help sometimes. cooks meals. Spends day watching TV. Has some exercises for UE. then comes in late and had fall at home February 19 on steps and hit head on floor. R arm weakness after that and MRI and had two recent Minor strokes. was not using wh. walker before recent strokes, used cane. Fell going down two steps. Helps him dressing with shirts and pants pulled up and socks. Sleeps in lift chair. He is incontinent since first stroke, needs cleaned . Cannot get in and out of bathtub since the latest stroke but was difficult prior. Has shower seat at home and cannot lift leg over tub even sitting. Was in NH for a month after stroke and then had some at home, has had 9 overall so far. - Objective not present for eval so information questionable. A& Oriented to being at [facility], not to date, oriented to place not birthday. Trasnfers with UE chair I, bed needs assist up from flat. Walks with wh walker mod I 200 feet today. Wtihout AD goes 75 feet with SBA, Steps reciprocal with two rails up and down but only puts half of each foot on step. UE strength 3+ R adn 4- L elevation. Posture is forward head and kyphotic T/S. reflexes 1/3 patella and achilles. Sensation LE WNL to gross light touch B. Strength 4-/5 L hips and knees and ankles without asymmetries. Coordination to reciprocal toe and heel tap is mod deficits. heel trejo test mod deficits. - Balance/Special Test Scores Functional Gait Assessment Score: 19 % Disability: 36.6700 CATSIB Score (Max score 120 seconds): 60 Lower Extremity Functional Score: 19 - Goals Goal 1:: FGA to diminish fall risk and get rid of wh walker Goal Time Frame: 4-6 Weeks Goal 2:: I HEP or gym )possibly back to [facility]) to continue progress with mobility at home Goal Time Frame: 4-6 Weeks Goal 3:: Pt and feel 75% back to normal as prior to most recent stroke. Goal Time Frame: 4-6 Weeks - Rehabilitation Potential Physical Therapy Diagnosis: CVA with related gait deficits in safety Rehabilitation Potential: Fair - Anticipated Interventions Patient/Client Instruction: Educate patient on: Condition, Plan of Care For the Purpose of:: To improve muscle performance and motor function, To increase tolerance to activity/condition/position, To improve performance and independence with ADL's, To improve ability of physical actions for home/community/work/leisure Therapeutic Exercise to Include: Strength training, Balance training, Gait and locomotor training For the Purpose of:: To increase ROM, To improve muscle performance and motor function, To improve ability of physical actions for home/community/work/leisure, To improve gait and locomotor functions Thank you for the opportunity to evaluate your patient. For Medicare and Medicare HMO plans, please review the plan of care and approve it. It will need to be FAXED BACK to us at [phone] for Medicare purposes. For Medicare only, by signing this I certify the plan of care. Please let me know if there are questions or concerns regarding this plan of care. Physician Signature: Date:
--- NOTE | 2021-06-10 16:39 | HP.PTREVAL ---
Dr. Chavo Herman MD, It has been my pleasure to treat SUSAN ACOSTA over the last 9 visits for CVA. Please see the progress note below for an update on the physical therapy plan of care! Subjective: Tolerating exercises ion here well. Getting stronger. says he falls out of lift chair FW when sleeping. says cutting back on walker and no falls at home and needs it less. does talking and judgement is a problem. says he had 6 visits prior to this. Objective/Function: Walks without AD I today with slight R hip weakness apparent but I. Transfer is slow but I with UE. Steps are reciprocal with UE pull B and half foot on each step. Pt is not able to finish thoughts clearly as he has vascular dementia. He admits to being stagnant at home and sitting in chair all day. He needs HEP. FGA is +2, improving LEFS slowly. New goal set and fair prognosis if compliant. Plan Plan: Improved balance and gait. [id number]/week for 4 weeks(3 visits approved adn will seek more approval but only 3 scheduled for now). Please work on getting patient on LE , trunk strength that he can do himself at home with pics.(current ex are good but noncompliant, needs encouragement) Compliance will be responsibility of him and his but we need to work to I now that mobility is improved and pool is not a viable option I. Balance/Gait/Functional tests - Balance/Special Test Scores Functional Gait Assessment Score: 21 % Disability: 30.0000 CATSIB Score (Max score 120 seconds): 60 Lower Extremity Functional Score: 24 Goals Goal 1:: FGA to diminish fall risk and get rid of wh walker Goal Time Frame: 4-6 Weeks Goal Progress: Progressing, approp Goal 2:: I HEP or gym )possibly back to [facility]) to continue progress with mobility at home Goal Time Frame: 4-6 Weeks Goal Progress: NA for pool. Goal 3:: Pt and feel 75% back to normal as prior to most recent stroke. Goal Time Frame: 4-6 Weeks Goal Progress: 20 Goal 4:: Pt I and compliant with sink based HEP Goal Time Frame: 2-4 Weeks Goal Progress: NEW GOAL Anticipated Interventions Patient/Client Instruction: Educate patient on: Condition, Plan of Care For the Purpose of:: To improve muscle performance and motor function, To increase tolerance to activity/condition/position, To improve performance and independence with ADL's, To improve ability of physical actions for home/community/work/leisure Therapeutic Exercise to Include: Strength training, Balance training, Gait and locomotor training For the Purpose of:: To increase ROM, To improve muscle performance and motor function, To improve ability of physical actions for home/community/work/leisure, To improve gait and locomotor functions Please do not hesitate to contact me at [phone] by phone or if you have questions or concerns regarding this new plan of care! Sincerely, Payam Patel, DPT, OCS, CSCS
--- NOTE | 2021-06-18 11:26 | HP.OTREVAL ---
Dr. Chavo Herman MD, It has been my pleasure to treat SUSAN ACOSTA over the last 12 visits for CVA right side weaknes. Please see the progress note below for an update on the occupational therapy plan of care! Subjective: pt arrives with from PT-. still feels pt is sleeping more than before his stoke Objective/Function: pt has been seen for 12 OT session- pt is consistent in attending OT sessions- brings pt and will report on his status- Therapy is challenging pts UB strength to increase pts safe functional tsf and participation with performing ADls and IADLs. right lab animal technician strength 35# increase from initial at 20#. right lateral pinch 4# increase from 2#. pt UE ROM did not change from initial Eval-. pt continues to demo UE weakness limiting safe functional tsf. and participation with ADLs and IADLS . pt would benefit from further skilled OT services 2x week for 3 weeks. Plan Frequency: 2x /Week Duration: 6 Weeks Visits in this POC: 6 Plan: will continue to challenge pts functional strength for ADLs and safe tsf- Goals - Goals Patient Goals: Regain Mobility, Improve Fine Motor Skills, Be More Independent in ADLS Goal:: pt will demo a increase in UB strength by demonstrating use of UE with functional tsf from sit-stand and stand to sit at a CGA level. ( progressing). pt will demo a increase in right lab animal technician strength to 35# or greater to increase pts ind with dressing/bathing etc. by d/c ( met goal) Goal:: pt will demo a increase in right shoulder flex to 150* or greater to increase pts ind. with dressing by d.c ( progressing) Goal:: pt will report right arm pain no greater than 1/10 with use of right hand with ADls and IADls. Goal:: pt will will demo the ability to manipulate buttons, zippers and snaps IND by d.c. pt will demo the ability to write name legibly with ad. pen by d/c progressing. pt will demo the ability to pepper picker and hold coins to manipulate change ind. without dropping coins by d/c progressing Goal:: pt will report a reduction of right UE pins and needles by 50% by d/c Anticipated Interventions Anticipated Interventions: A/AAROM/PROM, Strengthening, Fine Motor Coord/Curtis, Neuro Reeducation, Education re Diagnosis, Caregiver Training Please do not hesitate to contact me at [phone] by phone or if you have questions or concerns regarding this new plan of care! Sincerely, Mandy Sellers, OTR/L, CHT
--- NOTE | 2021-07-13 14:13 | HP.PTDCSUM ---
It has been my pleasure to treat SUSAN ACOSTA referred by Dr. Chavo Herman MD, with the diagnosis of CVA for a total of 18 visit(s). Discharge Date: 07/13/21 Please see the following information for a summary of their discharge status. Subjective: Seems to be getting better. Can stadn up easier. Feels more mobile. He says he is doing ex at home but disagrees. says he is using cane instead of walker now which is better. She had to help him at congregational once or twice. She says he can get to bathroom on his own now. Slides out of recliner at times if it is not reclined at night, it is a lift chair. % Improvement: 50 Objective/Function: Walks with cane mod I. FGA done without cane and is same as last month. Pt and disagree on his compliance with HEP. Cignitively, he has deficits that keep him from improving... 1. unable to figure out how to open door with latch when it won't open when he pushes on it. 2. unable to discuss specific exercises done at home despite stating compliance. 3. Wanting assist to trasnfer up off of back despite being able to do it himself when encouraged to. 4. Slides otu of lift chair at night becasue he is unable or refuses to recline it and then cannot get up off floor. Overall, FGA is not bad for his age but his cognition represents a wall that holds him back from improving pjhysically and may be starting to be holding him back [facility]. He will visit tobacco warehouse manager this week for evaluation and cognition should be a big part of this as his physical health in therapy is stagnant and not improving. Goal 1:: FGA to diminish fall risk and get rid of wh walker Goal Progress: Not Progressing Goal 2:: I HEP or gym )[facility] to [facility] to continue progress with mobility at home Goal Progress: NA for pool. Goal 3:: Pt and feel 75% back to normal as prior to most recent stroke. Goal Progress: 50% Goal 4:: Pt I and compliant with sink based HEP Goal Progress: noncompliant Plan: d/c Discharge Comments: Pt to tobacco warehouse manager this week, Not improving in physical therapy and unable to cognitively progress to importance of HEP I. If there are questions or concerns regarding this patient's physical therapy, please feel free to call me at [phone]. Thank you for the referral of this patient. Sincerely, Payam Patel, DPT, OCS, CSCS Balance/Gait/Functional tests - Balance/Special Test Scores Functional Gait Assessment Score: 21 % Disability: 30.0000 CATSIB Score (Max score 120 seconds): 60 Lower Extremity Functional Score: 24
--- NOTE | 2021-07-14 13:34 | HP.OTDCSUM ---
It has been my pleasure to treat SUSAN ACOSTA under orders from Dr. Chavo Herman MD, for the diagnosis of CVA right side weaknes for a total of 6 visit(s). Please see the following information for a summary of their discharge status. % Improvement: 10 Objective/Function: R shoulder flexion- 70* L- 120*. 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 pt has stopped making progress in OT at this time- was given HEP and handouts throughout session-to increase pts functional ROM and strength per pt is not performing. Patient Goals: Regain Mobility, Improve Fine Motor Skills, Be More Independent in ADLS Goal:: pt will demo a increase in UB strength by demonstrating use of UE with functional tsf from sit-stand and stand to sit at a CGA level. ( goal met). pt will demo a increase in right vinyl welder and fabricator strength to 35# or greater to increase pts ind with dressing/bathing etc. by d/c ( met goal) Goal:: pt will demo a increase in right shoulder flex to 150* or greater to increase pts ind. with dressing by d.c ( progressing) Goal:: pt will report right arm pain no greater than 1/10 with use of right hand with ADls and IADls. ( goal met) Goal:: pt will will demo the ability to manipulate buttons, zippers and snaps IND by d.c ( unable due to sensation deficits with UE). pt will demo the ability to write name legibly with ad. pen by d/c (fair ability if pt visually watches what he is doing). pt will demo the ability to diamond picker and hold coins to manipulate change ind. without dropping coins by d/c ( fair ability if pt visually watches what he is doing). pt made little gains with fine motor skills duet to sensation deficits Goal:: pt will report a reduction of right UE pins and needles by 50% by d/c ( pt states denies pins and needles sensation) Plan: see dc summary. Discharge Comments: Pt. has completed a total of 20 OT visits (including this one). There has been a plateau of progress and is being dc'd from OT services. Pt to geriatric specialist this week, Not improving in OT at this time and unable to cognitively progress to importance of HEP I. Pt. has demonstrated ability to sit to stand at CGA using an armed chair. He has improved his R vinyl welder and fabricator strength to 25# this has fluctuated from 20# to 35#, his R shoulder flexion ROM is 70* no significant improvement. His pain level has been consistently at 0. Pt. requires total assist with fasteners such as zippers, buttons and snaps. He reports he is not having pins and needles sensation in his R hand and no stereognosis ability indicating sensation is compromised. Therapy has given handouts on HEP to improve his strength reports he does not do his HEP. Therapy encouraged to assist pt. with his exercise to increase compliance and participation. If there are questions or concerns regarding this patient's occupational therapy, please fell free to call me at [phone]. Thank you for the referral of this patient. Sincerely, Mandy Sellers, OTR/L, CHT
== END 2021-07-13 19:00 | disposition home or self-care (01) ==
LOC: OT 14:00
PROVIDERS: PCP Family Medicine; Referring Provider Family Medicine; Visit Provider Family Medicine
DX: Z86.73 Personal history of transient ischemic attack (TIA), and cerebral infarction without residual deficits (principal)
CPT/HCPCS: 97110; 97162; 97164; 97167; 97530

== ENCOUNTER 2022-08-28 21:24 | Emergency (ER) | payer MEDICARE, SELFPAY ==
[2022-08-28 21:24] VITALS: BP 217/91; PULSE 63; RESP 10; TEMP 36.1; O2SAT 98; BMI 29.1
[2022-08-28] MEDS: cloNIDine HCl 0.2 MG Tablet PO (22:27)
[2022-08-28] MEDS: hydrALAZINE 20 MG/ML Vial IV (22:27)
[2022-08-28 22:29] LABS: Absolute Lymphocyte Count 1.45 X10^3/uL (0.83-4.51); Absolute Neutrophil Count 5.7 X10^3/uL (2.0-7.7); Basophil# 0.05 X10^3/uL; Basophil% 0.6 % (0-1); Eosinophil# 0.72 X10^3/uL; Eosinophils% 8.4 % (0-5); Hematocrit 40.3 % (40-54); Hemoglobin 12.8 g/dL (13.0-16.5); Lymphocyte # 1.45 X10^3/ul (0.83-4.51); Lymphocyte % 16.8 % (19-41); Mean Corp Hgb Conc 31.8 g/dL (32-36); Mean Corpuscular Hgb 28.6 pg (27.0-32.0); Mean Platelet Vol. 9.3 fl (6.2-12.0); Monocyte# 0.62 X10^3/uL; Monocyte% 7.2 % (0-10); NRBC Flagged by Analyzer 0 % (0-5); Neutrophil # 5.74 X10^3/uL (2.7-7.7); Neutrophil % 66.7 % (47-70); Platelet Count 178 K/mm3 (150-450); RBC Distribution Width CV 14.2 % (11.6-14.6); Red Blood Count 4.48 M/mm3 (4.6-6.2); White Blood Count 8.6 K/mm3 (4.4-11.0)
[2022-08-28 22:49] LABS: Anion Gap 5 (5-15); BUN 54 mg/dL (7-18); BUN/Creat Ratio 19.4 RATIO (10-20); Calcium,Total 8.4 mg/dL (8.5-10.1); Chloride 113 mmol/L (98-107); Creatinine, Serum 2.79 mg/dL (0.70-1.30); EST Glomerular Filtration Rate 23 mL/min (>60); Est Glom Filt Rate - Afr Amer 28 mL/min (>60); Estimated Creatinine Clearance 21.63 ml/min; Glucose 203 mg/dL (74-106); Potassium 4.7 mmol/L (3.5-5.1); Sodium Level 144 mmol/L (136-145); Troponin-I HS 27 pg/mL (3.0-78.0)
--- NOTE | 2022-08-28 23:18 | EDS_ITS ---
HPI History of Present Illness Chief Complaint: Hypertension Informant: patient and spouse/S.O. Narrative Narrative: Patient is an 86-year-old male with past medical history of chronic kidney disease not on dialysis as well as hypertension hyperlipidemia and diabetes. states that he has been taking his metoprolol Lasix and lisinopril as directed. She states they were just recently at the family doctor secondary to his chronic kidney disease and he is receiving a referral to a real estate broker associate. She states that her blood pressure was approximately 160/80. She states because that is slightly higher than his baseline she has been monitoring her blood pres sure and that today the value was approaching 200 systolic. She states that there is been no medication changes that has been taking his blood pressure medications as directed and patient and family deny any type of excessive stimulant use or illicit drug use. Patient has no complaints at this time but based on the elevated reading he was brought in for evaluation [facility] Medical History (Updated 08/29/22 @ 00:[address] 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 Stroke Home Medications lisinopril 20 mg tablet 20 mg PO DAILY BP 07/31/15 [History Last Taken 05/11/17 06:00] aspirin 81 mg tablet,delayed release (Adult Low Dose Aspirin) 81 mg PO BID Check with primary doctor 04/19/17 [History Last Taken 05/05/17] atorvastatin 80 mg tablet 80 mg PO DAILY Check with primary doctor 05/04/17 [History Last Taken Unknown] dulaglutide 1.5 mg/0.5 mL subcutaneous pen injector (Trulicity) 3 mg subcut QWEEK Check with primary doctor 02/21/21 [History Last Taken Unknown] escitalopram oxalate 10 mg tablet 10 mg PO DAILY Check with primary doctor 02/21/21 [History Last Taken Unknown] furosemide 20 mg tablet 20 mg PO QODAY Check with primary doctor 02/21/21 [History Last Taken Unknown] memantine 5 mg tablet 5 mg PO BID Check with primary doctor 02/21/21 [History Last Taken Unknown] metoprolol tartrate 50 mg tablet 75 mg PO BREAKFAST Check with primary doctor 02/21/21 [History Last Taken Unknown] apixaban 2.5 mg tablet (Eliquis) 2.5 mg PO BID #60 tabs 02/23/21 [Rx Last Taken Unknown] allopurinol 100 mg tablet 100 mg PO DAILY 08/28/22 [History Last Taken Unknown] cyanocobalamin (vitamin B-12) 1,000 mcg tablet 1,000 mcg PO DAILY 08/28/22 [History Last Taken Unknown] metoprolol tartrate 50 mg tablet 50 mg PO QHS 08/28/22 [History Last Taken Unknown] Allergy/AdvReac Type Severity Reaction Status Date / Time levofloxacin [From Levaquin] Allergy Other Verified 08/28/22 21:32 metformin AdvReac Other Verified 08/28/22 21:32 ACARB AdvReac Nausea Uncoded 08/28/22 21:32 Family History Mother CVA (cerebral vascular accident) Father Heart disease Surgical History EXCISION PAINFUL SOFT TISSUE MASS HEART CATHETERIZATION 2009 [facility] History of squamous cell carcinoma excision Social History household members: spouse housing: house Smoking Status: Never smoker second hand exposure: No alcohol intake: never substance use type: does not use what type of physical activity do you participate in: none seatbelt use: sometimes do you feel safe at home: Yes additional social history: SUN EXPOSURE: FREQUENTLY ROS ROS ED Constitutional Constitutional ED: Denies chills or fever(s) Eyes Eyes: Denies blurry vision or change in vision ENT ENT ED: Denies sore throat Cardiovascular Cardiovascular: Denies chest pain or palpitations Respiratory/Chest Respiratory/Chest: Denies cough or dyspnea Gastrointestinal Gastrointestinal: Denies abdominal pain, diarrhea, nausea or vomiting Genitourinary Genitourinary ED: Denies dysuria Musculoskeletal Musculoskeletal: Denies back pain or myalgias Integumentary Denies rash Neurologic Neurologic: Denies headache(s) Hematologic/Lymphatic Hematologic/Lymphatic: Reports easy bleeding and easy bruising EXAM Physical Exam Const Vital Signs: 08/28/22 21:24 08/28/22 21:33 08/28/22 23:28 Temperature 97 F L Temperature Source Temporal Pulse Rate 63 65 Respiratory Rate 10 L 19 H Respiratory Effort Normal Respiratory Pattern Normal Blood Pressure 217/91 H 175/75 H Blood Pressure Mean 133 Pulse Ox 98 Positive well nourished, well developed and obese General Appearance ED: well developed Nutritional Appearance: obese HEENT Reports moist mucous membranes Eyes PERRL and EOMs intact bilaterally Neck supple Neck Narrative: No nuchal rigidity or meningeal signs present No carotid bruit noted Resp normal respiratory effort and clear to auscultation bilaterally Cardio regular rate and regular rhythm Rate: other Other Details: Radial pulses are plus 2 out of 4 bilaterally are equal and symmetric GI normal to inspection, nondistended, normoactive bowel sounds, non-tender, non- distended and no masses GI Narrative: No voluntary guarding or rigidity no pulsatile mass or fluid wave Auscultation: normoactive bowel sounds Palpation: soft Extremity normal to inspection Neuro oriented x3 and CN's II-XII intact bilaterally Neuro Narrative: Patient has chronic changes from previous stroke but no new or acute finding Sensorium / Orientation: alert Psych mental status grossly normal Skin no rashes or lesions noted MDM MDM MDM Narrative Medical decision making narrative: Patient presented to the ER hypertensive with systolic blood pressure of 217. Patient and family deny any change to his medication and they deny any excessive stimulant use or illicit drug use. Patient has no complaints such as headache change in vision chest pain or abdominal pain but based on the blood pressure systolic being above 200 there is concern for endorgan damage so basic blood work was obtained. Differential diagnosis includes accelerated hypertension versus acute coronary syndrome versus acute on chronic kidney disease. EKG is sinus rhythm without ischemic changes troponin is 27 going against cardiac event and patient's creatinine is elevated 2.8 but chart review reveals this is near his baseline going against acute on chronic kidney injury. Patient was given oral clonidine and IV hydralazine and his blood pressure reduced to 175 which is between 15 and 25% from his presentation. Therefore at this time patient has no physical exam or laboratory changes consistent with endorgan damage blood pressure has been reduced to the acceptable value between 15 and 25% and therefore he is safe for discharge and can follow-up with his family doctor to discuss need for increasing or changing medication. Plan of care was discussed with patient and and both are agreeable to it. History & Record Review Discussion w/independent historian: Patient and Significant other Lab Data Attestation: I reviewed the patient's lab results. Labs: Laboratory Results - last 24 hr 08/28/22 08/28/22 22:20 22:20 WBC 8.6 RBC 4.48 L Hgb 12.8 L Hct 40.3 MCV 90.0 MCH 28.6 MCHC 31.8 L RDW Std Deviation 47.0 H RDW Coeff of Shen 14.2 Plt Count 178 MPV 9.3 Immature Gran % (Auto) 0.300 Neut % (Auto) 66.7 Lymph % (Auto) 16.8 L Troup % (Auto) 7.2 Eos % (Auto) 8.4 H Baso % (Auto) 0.6 Absolute Neuts (auto) 5.7 Absolute Lymphs (auto) 1.45 Nucleated RBC % 0 Sodium 144 Potassium 4.7 Chloride 113 H Carbon Dioxide 26.0 Anion Gap 5 BUN 54 H Creatinine 2.79 H Estim Creat Clear Calc 21.63 Est GFR (MDRD) Af Amer 28 L Est GFR (MDRD) Non-Af 23 L BUN/Creatinine Ratio 19.4 Glucose 203 H Calcium 8.4 L Troponin I High Sens 27 Discharge Plan Triage Chief Complaint: Hypertension ED Provider: Brent Colin Dx/Rx/DC Orders Clinical Impression: Accelerated hypertension, Chronic kidney disease, Diabetes mellitus, Current use of termite helper anticoagulation Instructions: Controlling High Blood Pressure Prescriptions: No Action aspirin [Adult Low Dose Aspirin] 81 mg tablet,delayed release (DR/EC) 81 mg PO BID Label Comments: WAS TOLD TO ASK ABBOUT STOPPING lisinopril 20 MG tablet 20 mg PO DAILY atorvastatin 80 MG tablet 80 mg PO DAILY furosemide 20 mg tablet 20 mg PO QODAY escitalopram oxalate 10 mg tablet 10 mg PO DAILY memantine 5 mg tablet 5 mg PO BID Trulicity 1.5 mg/0.5 mL pen injector 3 mg SUBCUT QWEEK Hold Instructions: Resume on 03/23/21. Hold [facility] at jail. Rx Instructions: on mon metoprolol tartrate 50 mg tablet 75 mg PO BREAKFAST Eliquis 2.5 mg tablet 2.5 mg PO BID Qty: 60 0RF cyanocobalamin (vitamin B-12) 1,000 mcg Tablet 1,000 mcg PO DAILY allopurinol 100 mg tablet 100 mg PO DAILY metoprolol tartrate 50 mg tablet 50 mg PO QHS Primary Care Provider: Chavo Herman Referrals: Chavo Herman MD [Primary Care Provider] - Activity Restrictions/Additional Instructions: Please contact your family doctor on Monday to inform them of the elevated blood pressure reading and negative work-up in the ER. You may also discuss possible changes to medication if blood pressure remains high. If you have any further concerns or worsening of symptoms please return for repeat evaluation Disposition Disposition: Home, Self Care Discharge Date/Time: 08/28/22 23:28
[2022-08-28 23:28] VITALS: BP 175/75; PULSE 65; RESP 19
== END 2022-08-28 23:28 | disposition home or self-care (01) ==
PROVIDERS: Emergency Provider Emergency Medicine; PCP Family Medicine; Visit Provider Emergency Medicine
DX: I12.9 Hypertensive chronic kidney disease with stage 1 through stage 4 chronic kidney disease, or unspecified chronic kidney disease (principal); E11.22 Type 2 diabetes mellitus with diabetic chronic kidney disease; N18.9 Chronic kidney disease, unspecified; Z79.01 Long term (current) use of anticoagulants; E78.5 Hyperlipidemia, unspecified; Z79.899 Other long term (current) drug therapy; Z79.82 Long term (current) use of aspirin; Z85.9 Personal history of malignant neoplasm, unspecified
CPT/HCPCS: 80048; 84484; 85025; 93005; 96374; 99285; A4216

== ENCOUNTER 2022-09-04 20:53 | Emergency (ER) | payer MEDICARE, SELFPAY ==
[2022-09-04 20:54] VITALS: BP 227/88; PULSE 61; RESP 18; TEMP 36.8; O2SAT 98; BMI 28.5
[2022-09-04 21:46] VITALS: BP 207/68; PULSE 59; O2SAT 97
[2022-09-04 21:53] VITALS: BP 210/90
[2022-09-04 23:00] VITALS: BP 210/74
[2022-09-04] MEDS: cloNIDine HCl 0.1 MG Tablet PO (23:06)
[2022-09-04 23:59] LABS: Anion Gap 4 (5-15); BUN 48 mg/dL (7-18); BUN/Creat Ratio 17.8 RATIO (10-20); Calcium,Total 8.7 mg/dL (8.5-10.1); Chloride 112 mmol/L (98-107); EST Glomerular Filtration Rate 24 mL/min (>60); Est Glom Filt Rate - Afr Amer 29 mL/min (>60); Estimated Creatinine Clearance 23.02 ml/min; Glucose 134 mg/dL (74-106); Potassium 4.7 mmol/L (3.5-5.1); Sodium Level 142 mmol/L (136-145)
[2022-09-05] MEDS: hydrALAZINE 20 MG/ML Vial 10 MG IV (00:28)
[2022-09-05 00:31] VITALS: BP 169/70
[2022-09-05 00:50] VITALS: BP 167/60; PULSE 62
--- NOTE | 2022-09-05 01:05 | EX.ED.DYSGE1 ---
HPI History of Present Illness Chief Complaint: Hypertension Narrative Narrative: Patient is a 86-year-old male with history of hypertension, atrial fibrillation, CKD 4, vascular dementia and diabetes mellitus presenting for elevated blood pressure reading at home. Patient is with his who is his primary caregiver. She states that they have had issues controlling his blood pressure recently and he is currently following with nephrology through [facility]. Patient's most recent saw nephrology on 08/24 and was put on a 60 fluid ounces restriction. states has been following it. He was seen in the ER a week ago for elevated blood pressure as well and received a dose of oral clonidine and hydralazine IV. He was discharged home. His metoprolol was increased from 50 mg twice daily to 75 mg twice daily. In addition he is on lisinopril 20 mg daily and Lasix 20 mg every other day. checked his blood pressure at 8 PM last night and was 200/80. She gave him his normal evening medicines. His blood pressure did not go down so she brought him to the emergency room. He is not having any symptoms including chest pain, increased confusion, vision changes, difficulty breathing or shortness of breath. does comment that maybe he has had decreased urine output but is not sure if this is associated with his fluid restriction. No other complaints or concerns at this time. 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 Stroke Home Medications lisinopril 20 mg tablet 20 mg PO DAILY BP 07/31/15 [History Last Taken 05/11/17 06:00] aspirin 81 mg tablet,delayed release (Adult Low Dose Aspirin) 81 mg PO BID Check with primary doctor 04/19/17 [History Last Taken 05/05/17] atorvastatin 80 mg tablet 80 mg PO DAILY Check with primary doctor 05/04/17 [History Last Taken Unknown] dulaglutide 1.5 mg/0.5 mL subcutaneous pen injector (Trulicity) 3 mg subcut QWEEK Check with primary doctor 02/21/21 [History Last Taken Unknown] escitalopram oxalate 10 mg tablet 10 mg PO DAILY Check with primary doctor 02/21/21 [History Last Taken Unknown] furosemide 20 mg tablet 20 mg PO QODAY Check with primary doctor 02/21/21 [History Last Taken Unknown] memantine 5 mg tablet 5 mg PO BID Check with primary doctor 02/21/21 [History Last Taken Unknown] metoprolol tartrate 50 mg tablet 75 mg PO BREAKFAST Check with primary doctor 02/21/21 [History Last Taken Unknown] apixaban 2.5 mg tablet (Eliquis) 2.5 mg PO BID #60 tabs 02/23/21 [Rx Last Taken Unknown] allopurinol 100 mg tablet 100 mg PO DAILY 08/28/22 [History Last Taken Unknown] cyanocobalamin (vitamin B-12) 1,000 mcg tablet 1,000 mcg PO DAILY 08/28/22 [History Last Taken Unknown] metoprolol tartrate 50 mg tablet 75 mg PO QHS 08/28/22 [History Last Taken Unknown] hydralazine 25 mg tablet 25 mg PO BID #60 tabs 09/05/22 [Rx Last Taken Unknown] Allergy/AdvReac Type Severity Reaction Status Date / Time levofloxacin [From Levaquin] Allergy Other Verified 08/28/22 21:32 metformin AdvReac Other Verified 08/28/22 21:32 ACARB AdvReac Nausea Uncoded 08/28/22 21:32 Family History Mother CVA (cerebral vascular accident) Father Heart disease Surgical History EXCISION PAINFUL SOFT TISSUE MASS HEART CATHETERIZATION 2009 [facility] History of squamous cell carcinoma excision Social History household members: spouse housing: house Smoking Status: Never smoker second hand exposure: No alcohol intake: never substance use type: does not use what type of physical activity do you participate in: none seatbelt use: sometimes do you feel safe at home: Yes additional social history: SUN EXPOSURE: FREQUENTLY ROS ROS ED Constitutional Constitutional ED: Denies chills or fever(s) Eyes Eyes: Denies change in vision Cardiovascular Cardiovascular: Denies chest pain Respiratory/Chest Respiratory/Chest: Denies cough or dyspnea Gastrointestinal Gastrointestinal: Denies abdominal pain, nausea or vomiting Genitourinary Genitourinary ED: Reports other Details: Possible decreased urination, chronic incontinence of urine Musculoskeletal Musculoskeletal: Denies arthralgias or myalgias Integumentary Denies rash Neurologic Neurologic: Denies headache(s) or weakness Hematologic/Lymphatic Hematologic/Lymphatic: Reports easy bleeding and easy bruising EXAM Physical Exam Const Vital Signs: 09/04/22 20:54 09/04/22 20:57 09/04/22 21:46 Temperature 98.3 F Temperature Source Temporal Pulse Rate 61 59 L Respiratory Rate 18 Respiratory Pattern Normal Blood Pressure 227/88 H 207/68 H Blood Pressure Mean 134 114 Pulse Ox 98 97 Oxygen Delivery Method Room Air Room Air 09/04/22 21:53 09/04/22 23:00 09/05/22 00:31 Temperature Temperature Source Pulse Rate Respiratory Rate Respiratory Pattern Blood Pressure 210/90 H 210/74 H 169/70 H Blood Pressure Mean 130 119 103 Pulse Ox Oxygen Delivery Method 09/05/22 00:50 09/05/22 01:27 Temperature Temperature Source Pulse Rate 62 62 Respiratory Rate 14 Respiratory Pattern Blood Pressure 167/60 H 166/72 H Blood Pressure Mean 95 Pulse Ox Oxygen Delivery Method Positive well nourished and well developed General Appearance ED: well developed and NAD HEENT Reports moist mucous membranes Eyes PERRL and EOMs intact bilaterally Neck supple and no JVD Chest Wall inspection of chest normal and palpation of chest normal Resp normal respiratory effort and clear to auscultation bilaterally Cardio regular rate and regular rhythm GI normal to inspection, nondistended, normoactive bowel sounds and non-tender Extremity General Extremety ED: Yes edema; Negative for tenderness General Extremity: edema Neuro no sensory deficits noted Neuro Narrative: Normal speech. Patient does have some repetitive lipsmacking movements however he does appear to be chewing gum Sensorium / Orientation: alert Motor Exam: strength 5/5 throughout; Negative for general weakness Psych mental status grossly normal Skin no rashes or lesions noted and no wounds MDM MDM MDM Narrative Medical decision making narrative: Patient is presenting for asymptomatic hypertension. Patient's blood pressure was elevated upon arrival with initial blood pressure of 227/88. Patient is on some blood pressure medicine but does not sound like he is well controlled. He is on lisinopril, Lasix and his metoprolol was recently increased. He does have CKD. He is not having any findings since with a hypertensive emergency including flash pulmonary edema, ACS with chest pain and he has no acute neurologic symptoms. Patient has no complaints. The patient's did bring in his blood pressure log for the past few days. While he has been elevated he has had water to treated due to episodes of low blood pressure. states he was asymptomatic at that time as well. Patient is given oral clonidine. She has reportedly had some possible decreased urine output we will recheck a BMP for his kidney function to make sure he does not become uremic or have an MELL. Patient does not have very much response to the clonidine is then given 10 mg IV hydralazine. He has good response to that on repeat blood pressure is 166/72. Patient now states he feels great. BMP is stable. Kidney function at baseline. Discussed with at length management of his blood pressure. We will start the patient on oral hydralazine 25 mg twice daily. given hold precautions of his blood pressure is below 120 systolic. counseled to continue to follow with the patient's primary care doctor as well as his recreation therapy director for further blood pressure management. Is given a 1 month supply in case there is a delay in any type of follow-up. Given return precautions emergency room. Patient verbalized agreement understands plan. Patient discharged home in stable condition. Lab Data Attestation: I reviewed the patient's lab results. Labs: Laboratory Results - last 24 hr 09/04/22 23:23 Sodium 142 Potassium 4.7 Chloride 112 H Carbon Dioxide 26.0 Anion Gap 4 L BUN 48 H Creatinine 2.70 H Estim Creat Clear Calc 23.02 Est GFR (MDRD) Af Amer 29 L Est GFR (MDRD) Non-Af 24 L BUN/Creatinine Ratio 17.8 Glucose 134 H Calcium 8.7 Discharge Plan Triage Chief Complaint: Hypertension ED Provider: Portia García Dx/Rx/DC Orders Clinical Impression: Hypertension, Diabetes mellitus Instructions: ED Hypertension, Established Prescriptions: New hydralazine 25 mg tablet 25 mg PO BID Qty: 60 0RF No Action aspirin [Adult Low Dose Aspirin] 81 mg tablet,delayed release (DR/EC) 81 mg PO BID Label Comments: WAS TOLD TO ASK ABBOUT STOPPING lisinopril 20 MG tablet 20 mg PO DAILY atorvastatin 80 MG tablet 80 mg PO DAILY furosemide 20 mg tablet 20 mg PO QODAY escitalopram oxalate 10 mg tablet 10 mg PO DAILY memantine 5 mg tablet 5 mg PO BID Trulicity 1.5 mg/0.5 mL pen injector 3 mg SUBCUT QWEEK Hold Instructions: Resume on 03/23/21. Hold while at detention. Rx Instructions: on mon metoprolol tartrate 50 mg tablet 75 mg PO BREAKFAST Eliquis 2.5 mg tablet 2.5 mg PO BID Qty: 60 0RF cyanocobalamin (vitamin B-12) 1,000 mcg Tablet 1,000 mcg PO DAILY allopurinol 100 mg tablet 100 mg PO DAILY metoprolol tartrate 50 mg tablet 75 mg PO QHS Primary Care Provider: Chavo Herman Referrals: Chavo Herman MD [Primary Care Provider] - Activity Restrictions/Additional Instructions: His kidney function was at baseline. Blood pressure improved with 1 dose of oral clonidine and 1 dose of IV hydralazine. We will start him on oral hydralazine twice a day. If his blood pressure is below 120 systolic please hold the hydralazine. Please continue to follow-up with his primary care doctor as well as his recreation therapy director for further management of his blood pressure. Disposition Disposition: Home, Self Care Discharge Date/Time: 09/05/22 01:28
[2022-09-05 01:27] VITALS: BP 166/72; PULSE 62; RESP 14
== END 2022-09-05 01:28 | disposition home or self-care (01) ==
PROVIDERS: Emergency Provider Emergency Medicine; PCP Family Medicine; Visit Provider Emergency Medicine
DX: I12.9 Hypertensive chronic kidney disease with stage 1 through stage 4 chronic kidney disease, or unspecified chronic kidney disease (principal); E11.22 Type 2 diabetes mellitus with diabetic chronic kidney disease; N18.4 Chronic kidney disease, stage 4 (severe); I48.91 Unspecified atrial fibrillation; E78.00 Pure hypercholesterolemia, unspecified; Z79.82 Long term (current) use of aspirin; Z79.899 Other long term (current) drug therapy; Z79.85 Long-term (current) use of injectable non-insulin antidiabetic drugs; Z79.01 Long term (current) use of anticoagulants; M10.9 Gout, unspecified; Z85.828 Personal history of other malignant neoplasm of skin; Z86.73 Personal history of transient ischemic attack (TIA), and cerebral infarction without residual deficits
CPT/HCPCS: 80048; 96374; 99284; A4216

== ENCOUNTER 2022-10-05 14:00 | Outpatient (RCR) | payer MEDICARE, SELFPAY ==
--- NOTE | 2022-08-15 14:57 | HP.PTEVAL_ITS ---
Patient's Visit Information SUSAN ACOSTA is a 86 year old M referred to Physical Therapy by Dr. Chavo Herman MD with a diagnosis of CVA, weakness. Date of Evaluation: 08/15/22 Physical Therapist: Payam Patel DPT, OCS, CSCS - Visit Plan Frequency: 2x /Week Duration: 4-6 Weeks Plan: 2x/week for 4 weeks for. 1. Ensure utilizing wh walker. 2. teach HEP for weight shifts and HEP strength adn progress to I.UE /posture/LE. 3. emphasize safety with gait and activity at home as safety allows. - Subjective 07/25/22 fell at home and was very weak. Hard to get up off floor. got him to the living room and he fell again and could not get up. Called squad in the am. No injuries, never unconscious. Went to director of acquisition marketing due to weakness and sent for therapy. says last time here was a year ago after strokes. Doing fairly well until he fell this July a year later. says he has had a few falls in the last year. uses can e much of time. Forgets it at times. Has two steps at home in [place] and does them at time without steps. Has wh walker at home that he used a little bit. Not sure why they got rid of it. No exercises at home. Spends day eating 3 meals per day adn watches TV in between with heating pad. No outtings. Needs help from to get dressed in the bathroom. Eats L handed. Bathroom I but heklps sometimes, he acan wash hands and brush teeth. type 2 DM, no numbness, no dizzyness. - Objective 80 BPM HR at rest after walking. Walks with cane mod I 100 feet to PT today, [facility] chair with multiple attempts out and using UE but mod I. Stand to sit : I. Bed is slow and labored but I. walks with wh walker much safer but needed VVC to remind to stay inside wh walker, has one at home and recommended its use written in HEP as not present when eval completed. Has AROM WFL in LE, very tight quads and HS and hip flexors. 0 ext hips, 0 DF ankles,R knee -2 extension against gravity. reflexes 1/3 patella adn achilles B. Sensation to gross light touch grossly WNL B LE. motor control takes extra time and is poor to reciprocity and imitating movements in LE. Strength hips 3+ and knees 3+ and ankles 3+/. UE AROM R limited to 25 AROM but full PROM elevation and can hold it elevated. PROM er/ir WFL. Er very weak at 3- vs 3+ L. elbow and wrist and hand show slow motor control but 4- strength L and 3+ R . Unable to imitate UE movements show effectively. says he has dementia and exercises he should have kept doing but needed reminded and she got tired of reminding him. - Balance/Special Test Scores Functional Gait Assessment Score: 21 % Disability: 30.0000 Lower Extremity Functional Score: 9 TUG Test Time Seconds: 18 30 Second Chair Rise Test Seconds: 9 - Goals Goal 1:: Walk safely into and out of physical therapy with wh walker and no VC needed Goal Time Frame: 4-6 Weeks Goal 2:: I approp HEP pto minimize future problems with sedentarism Goal Time Frame: 4-6 Weeks Goal 3:: TUG score 13 and 30 sec sit to stand at 12 to show improved mobility. 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 Rehabilitation Potential: Fair - Anticipated Interventions Patient/Client Instruction: Educate patient on: Condition, Plan of Care For the Purpose of:: To increase ROM, To improve nutrient delivery to tissue, To improve muscle performance and motor function, To increase tolerance to activity/condition/position Therapeutic Exercise to Include: Strength training, Coordination, Flexibilty training, Gait and locomotor training For the Purpose of:: To increase ROM, To improve nutrient delivery to tissue, To improve muscle performance and motor function, To increase tolerance to activity/condition/position, To decrease level of supervision to perform tasks, To improve ability of physical actions for home/community/work/leisure, To improve gait and locomotor functions, To improve balance Thank you for the opportunity to evaluate your patient. For Medicare and Medicare HMO plans, please review the plan of care and approve it. It will need to be FAXED BACK to us at [phone] for Medicare purposes. For Medicare only, by signing this I certify the plan of care. Please let me know if there are questions or concerns regarding this plan of care. Physician Signature: Date:
--- NOTE | 2022-09-08 15:33 | HP.PTREVAL ---
Dr. Chavo Herman MD, It has been my pleasure to treat SUSAN ACOSTA over the last 8 visits for CVA, weakness. Please see the progress note below for an update on the physical therapy plan of care! Subjective: Feels like he is better at times. I can move faster and do more things. Getting out of chair feels easier on the first try. says he wax walking faster on sidewalk with cane at doctor appointment. Uses wh walker and or cane depending on 's preference. Some improvements. Doing some ex at home but has been in Er with HTN a couple times so has missed a few days. Objective/Function: Stand ec but drifts BW. Walks into PT with wh walker and short step length but mod I. Walks 3 steps today without AD with Min A for balance. TUG and 30 second sit to stand are improved slowly and consistent with his physical helath problems and motivation/cognitive limitations. Appropriate to continue POC 4 more weeks based on his progress and abilities. Emphasized to today that he will need her consistent input for daily ex if expected to continue to maintain and progress. Plan Plan: 2x/week for 4 more week please... Focus on more aggressive weight shift and balance/ pregait ex at home to complement sink exercises, please include UE scapular band ex and work to I with pics. Gait training with cane and without AD for practice,(may not be realistic longterm) fair prognosis Balance/Gait/Functional tests - Balance/Special Test Scores Functional Gait Assessment Score: 21 % Disability: 30.0000 Lower Extremity Functional Score: 26 TUG Test Time Seconds: 18 Tug Test: <20 sec.=mostly independent 30 Second Chair Rise Test Seconds: 12 Goals Goal 1:: Walk safely into and out of physical therapy with wh walker and no VC needed Goal Time Frame: 4-6 Weeks Goal Progress: Goal Met Goal 2:: I approp HEP pto minimize future problems with sedentarism Goal Time Frame: 4-6 Weeks Goal Progress: Progressing, approp Goal 3:: TUG score 13 and 30 sec sit to stand at 12 to show improved mobility. Goal Time Frame: 4-6 Weeks Goal Progress: Progressing, approp Goal 4:: Pt feel 50% better with mobility Goal Time Frame: 4-6 Weeks Goal Progress: 25%, approp Goal 5:: Patinet and consistent and motivated to cotninue ex at home safely and mod I. Goal Time Frame: 2-4 Weeks Goal Progress: NEW GOAL Anticipated Interventions Patient/Client Instruction: Educate patient on: Condition, Plan of Care For the Purpose of:: To increase ROM, To improve nutrient delivery to tissue, To improve muscle performance and motor function, To increase tolerance to activity/condition/position Therapeutic Exercise to Include: Strength training, Coordination, Flexibilty training, Gait and locomotor training For the Purpose of:: To increase ROM, To improve nutrient delivery to tissue, To improve muscle performance and motor function, To increase tolerance to activity/condition/position, To decrease level of supervision to perform tasks, To improve ability of physical actions for home/community/work/leisure, To improve gait and locomotor functions, To improve balance Please do not hesitate to contact me at [phone] by phone or if you have questions or concerns regarding this new plan of care! Sincerely, Payam Patel, DPT, OCS, CSCS
--- NOTE | 2022-10-05 15:29 | HP.PTREVAL ---
Re-Evaluation Intro: Dr. Chavo Herman MD, It has been my pleasure to treat SUSAN ACOSTA over the last 16 visits for CVA, weakness. Please see the progress note below for an update on the physical therapy plan of care! Subjective Subjective: Feels better than a month ago. Easier to get out of lift chair and not using lift portion at times. Uses cane at home much of time but uses walker at times also. Cane works best for him. Sleep is OK. HEP: walking alot in hallway, doing band exercises in sitting for UE, does HEP at sink once per week. prompts him to do that once per week. Won't remember when she is not promting him. That is all she can muster right now with other responsibilities. Will see Kidney specialist for HTN. Objective Objective/Function: TUG, 30 sec sit to stand and FGA and LEFS all almost the same as a month ago and no progress. Plan Plan Plan: f/u one month to ensure maintenance of funciton with HEP TUG, 30 sec, LEFS adn FGA New maintenance goal and fair prognsosis with compliance Balance/Gait/Functional tests Balance/Special Test Scores Functional Gait Assessment Score: 21 % Disability: 30.0000 Lower Extremity Functional Score: 26 TUG Test Time Seconds: 18 Tug Test: <20 sec.=mostly independent 30 Second Chair Rise Test Seconds: 11 Goals Goals Goal 1:: maintain current FGA, LEFS, tug adn 30 sec scores Goal Time Frame: 4-6 Weeks Goal Progress: NEW GOAL Goal 2:: I approp HEP pto minimize future problems with sedentarism Goal Time Frame: 4-6 Weeks Goal Progress: Progressing, approp Goal 3:: TUG score 13 and 30 sec sit to stand at 12 to show improved mobility. Goal Time Frame: 4-6 Weeks Goal Progress: Not Progressing Goal 4:: Pt feel 50% better with mobility Goal Time Frame: 4-6 Weeks Goal Progress: Goal Met Goal 5:: Patinet and consistent and motivated to cotninue ex at home safely and mod I. Goal Time Frame: 2-4 Weeks Goal Progress: ??? 1x/week Anticipated Interventions Anticipated Interventions Patient/Client Instruction: Educate patient on: Condition and Plan of Care For the Purpose of:: To increase ROM, To improve nutrient delivery to tissue, To improve muscle performance and motor function and To increase tolerance to activity/condition/position Therapeutic Exercise to Include: Strength training, Coordination, Flexibilty training and Gait and locomotor training For the Purpose of:: To increase ROM, To improve nutrient delivery to tissue, To improve muscle performance and motor function, To increase tolerance to activity/condition/position, To decrease level of supervision to perform tasks, To improve ability of physical actions for home/community/work/leisure, To improve gait and locomotor functions and To improve balance Re-Evaluation Ending Re-evaluation ending: Please do not hesitate to contact me at [phone] by phone or if you have questions or concerns regarding this new plan of care! Sincerely, Payam Patel, DPT, OCS, CSCS
--- NOTE | 2022-11-09 11:29 | HP.PT.NRP ---
Patient Information Patient Information: SUSAN ACOSTA was seen in my office for initial evaluation on 08/15/22. The following Plan of Care was established for this patient: POC Established Initial Frequency: 2x /Week Initial Duration: 4-6 Weeks Anticipated Interventions Patient/Client Instruction: Educate patient on: Condition and Plan of Care For the Purpose of:: To increase ROM, To improve nutrient delivery to tissue, To improve muscle performance and motor function and To increase tolerance to activity/condition/position Therapeutic Exercise to Include: Strength training, Coordination, Flexibilty training and Gait and locomotor training For the Purpose of:: To increase ROM, To improve nutrient delivery to tissue, To improve muscle performance and motor function, To increase tolerance to activity/condition/position, To decrease level of supervision to perform tasks, To improve ability of physical actions for home/community/work/leisure, To improve gait and locomotor functions and To improve balance Last Seen Last Seen: This patient was last seen in our office 10/05/22. Pertinent comments regarding their Physical therapy will appear below: Pt seen 16 visits of POC and was 70% improved. he worked to I with HEP although motivation was questionable. he was to f/u a month after his last recheck but has cancelled stating he does not wish to return. i will discontinue at this time. At this point I will be discontinuing this patient from physical therapy. I would be happy to see this patient again in the future if found appropriate by the physician. Thank you! Payam Patel, DPT, OCS, CSCS Balance/Gait/Functional tests Balance/Special Test Scores Functional Gait Assessment Score: 21 % Disability: 30.0000 Lower Extremity Functional Score: 26 TUG Test Time Seconds: 18 Tug Test: <20 sec.=mostly independent 30 Second Chair Rise Test Seconds: 11
== END 2022-10-05 19:00 | disposition home or self-care (01) ==
LOC: PT 14:00
PROVIDERS: PCP Family Medicine; Referring Provider Family Medicine; Visit Provider Family Medicine
DX: R53.1 Weakness (principal); I63.9 Cerebral infarction, unspecified
CPT/HCPCS: 97110; 97116; 97161; 97164

== ENCOUNTER → 2023-01-18 | Outpatient (CLI) | payer MEDICARE, SELFPAY ==
--- NOTE | 2023-01-18 17:58 | STRESSREP ---
Stress Test Report Pharmacologic myocardial perfusion stress test. 87-year-old male with a history of chest pain Resting EKG demonstrates sinus rhythm with a rate of 60 bpm. Resting blood pressure is 182/62 mmHg. 0.4 mg of regadenoson was infused per usual protocol followed by rapid intravenous saline flush injection. Continuous EKG monitoring was performed. The maximum heart rate was 78 bpm which was 57% of max impacted heart rate the maximum workload was 1 metabolic equivalent. At rest there were no ST or T wave changes noted to suggest ischemia and at peak infusion nonspecific ST changes were noted which did not meet the criteria for ischemia. No clinical angina is noted. The final blood pressure was 148/60 mmHg. Myocardial perfusion protocol. 14.3 mCi of technetium 99m sestamibi was injected at rest. 0.4 mg of regadenoson was infused per usual protocol. At peak infusion 44.6 mCi of technetium 99m sestamibi was injected stress images were obtained stress and rest images were reconstructed and compared in the short axis vertical long and horizontal long axis. Gated images were also obtained. Perfusion SPECT analysis: Review of the stress images demonstrate normal uptake of tracer noted in all areas of the myocardium except for small area in the inferior apex with mild reduction of perfusion. The resting images similar demonstrated normal uptake of tracer noted in all areas of the myocardium. The above suggests a mild amount of inferior apical ischemia present. Gated SPECT analysis: The gated ejection fraction is 53%. Conclusion: Mildly abnormal pharmacologic myocardial perfusion stress test. Inferior apical ischemia present Preserved ejection fraction.
== END | disposition home or self-care (01) ==
LOC: CVS 06:41
PROVIDERS: PCP Family Medicine; Referring Provider Internal Medicine Cardiovascular Disease; Visit Provider Internal Medicine Cardiovascular Disease
DX: I25.10 Atherosclerotic heart disease of native coronary artery without angina pectoris (principal)
CPT/HCPCS: 78452; 93017; A9500; A4216; J2785

== ENCOUNTER 2023-03-03 16:22 | Inpatient (IN) | payer MEDICARE, SELFPAY ==
[2023-03-03 16:23] VITALS: BP 140/85; PULSE 68; RESP 17; TEMP 36.4; O2SAT 96; BMI 27.6
--- NOTE | 2023-03-03 18:09 | CT_ITS ---
STUDY: CT CERVICAL SPINE WITHOUT CONTRAST REASON FOR EXAM: Male, 87 years old. trauma RADIATION DOSAGE (If Supplied By Facility): CTDIvol = ( 25.12 ) mGy, DLP = ( 481.42 ) mGycm TECHNIQUE: High resolution transaxial imaging was performed without contrast material. Sagittal and coronal images were reconstructed. Individualized dose optimization techniques were used for this CT. COMPARISON: 02/21/2021 FINDINGS: Normal craniovertebral junction. Normal anterior atlantoaxial articulation. Normal odontoid process. Normal cervical lordosis. Normal vertebral bodies and posterior osseous elements. C2-3: Mild bilateral facet hypertrophy with ankylosis of the facet joints. No spinal stenosis or neural foraminal stenosis. C3-4: Mild right facet hypertrophy produces mild right neural foraminal stenosis. Moderate left facet hypertrophy. Moderate left neural foraminal stenosis. Mild broad disc osteophyte complex asymmetric left with left uncovertebral hypertrophy produces mild spinal stenosis. C4-5: Normal endplates. Normal disc height and morphology. Normal central canal and intervertebral neuroforamina. C5-6: Mild broad disc osteophyte complex asymmetric to the left with left uncovertebral hypertrophy produces mild spinal stenosis and mild left neural foraminal stenosis. C6-7: Normal endplates. Normal disc height and morphology. Normal central canal and intervertebral neuroforamina. C7-T1: Normal endplates. Normal disc height and morphology. Normal central canal and intervertebral neuroforamina. Normal visualized soft tissue structures. CT/Spine Cervical without Contras IMPRESSION: No acute fracture or subluxation. Electronically Signed: Kaleb Alicea MD at 20:08 EST ,
--- NOTE | 2023-03-03 18:09 | CT_ITS ---
STUDY: CT BRAIN WITHOUT CONTRAST REASON FOR EXAM: Male, 87 years old. head injury RADIATION DOSAGE (If Supplied By Facility): CTDIvol = ( 44.99 ) mGy, DLP = ( 846.73 ) mGycm TECHNIQUE: Transaxial CT imaging of the brain was performed without administration of intravenous contrast material. Individualized dose optimization techniques were used for this CT. COMPARISON: 02/21/2021 FINDINGS: Normal soft tissue structures. Normal calvarium. There is moderate cerebral atrophy with widening of the extra-axial spaces and ventricular dilatation. There are areas of decreased attenuation within the white matter tracts of the supratentorial brain, consistent with microvascular disease changes. Normal basal ganglia and thalami. Normal brainstem. Normal cerebellum. There is no intracranial hemorrhage. Encephalomalacia in the left parietal lobe consistent with a chronic infarct. Mucous retention cyst in the left maxillary sinus consistent with chronic sinusitis. CT/Brain/Head without Contrast IMPRESSION: Chronic involutional changes of the brain. Electronically Signed: Kaleb Alicea MD at 20:03 EST ,
--- NOTE | 2023-03-03 18:10 | EKG12_ITS ---
Test Reason : DYSRHYTHMIA Blood Pressure : / mmHG Vent. Rate : 072 BPM Atrial Rate : 072 BPM P-R Int : 190 ms QRS Dur : 096 ms QT Int : 430 ms P-R-T Axes : 050 -45 063 degrees QTc Int : 470 ms Normal sinus rhythm Left anterior fascicular block Nonspecific ST and T wave abnormality Abnormal ECG Confirmed by SANJIV CARPENTER, JORGE A ([id number]), editor newspaper HELLEN DENIS ([id number]) on 03/06/2023 10:35:11 AM Referred By: MARKUS Confirmed By:JORGE A KINCAID MD
[2023-03-03] MEDS: 0.9% Normal Saline (500mL Bag) 500 ML 1000 ML IV (18:31)
[2023-03-03] MEDS: Ondansetron 4 MG/2 ML Vial IV (18:32)
[2023-03-03] MEDS: Morphine 4 MG/ML Syringe IV ×2 (18:33→21:59)
[2023-03-03 18:44] LABS: Absolute Lymphocyte Count 0.79 X10^3/uL (0.83-4.51); Basophil# 0.05 X10^3/uL; Basophil% 0.5 % (0-1); Eosinophil# 0.34 X10^3/uL; Eosinophils% 3.1 % (0-5); Hematocrit 32.5 % (40-54); Hemoglobin 10.2 g/dL (13.0-16.5); Lymphocyte # 0.79 X10^3/ul (0.83-4.51); Lymphocyte % 7.2 % (19-41); Mean Corp Hgb Conc 31.4 g/dL (32-36); Mean Corpuscular Hgb 28.8 pg (27.0-32.0); Mean Corpuscular Volume 91.8 fL (80-94); Mean Platelet Vol. 9.4 fl (6.2-12.0); Monocyte# 0.76 X10^3/uL; Monocyte% 6.9 % (0-10); NRBC Flagged by Analyzer 0 % (0-5); Neutrophil # 8.97 X10^3/uL (2.7-7.7); Neutrophil % 81.8 % (47-70); Platelet Count 199 K/mm3 (150-450); RBC Distribution Width SD 47.6 fl (35.1-43.9); Red Blood Count 3.54 M/mm3 (4.6-6.2)
--- NOTE | 2023-03-03 18:50 | RAD_ITS ---
STUDY: X-RAY CHEST REASON FOR EXAM: Male, 87 years old. weakness TECHNIQUE: Single AP portable view of the chest. COMPARISON: 02/21/2021 FINDINGS: The lungs are clear and expanded. There is no demonstrated pleural abnormality. There is moderate cardiac enlargement. Normal mediastinum and saravanan. Normal visualized pulmonary arteries. There is atherosclerotic tortuosity of the aortic arch and descending thoracic aorta. 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 Normal visualized thoracic spine. Normal visualized ribs, clavicles, and shoulders. There is no demonstrated abnormality of the visualized soft tissue structures of the upper abdomen. RAD/Chest 1 View (Portable) IMPRESSION: 1. No active pulmonary disease. 2. 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 3. Cardiomegaly. Electronically Signed: Kaleb Alicea MD at 20:15 EST ,
--- NOTE | 2023-03-03 18:50 | RAD_ITS ---
STUDY: X-RAY - PELVIS AND RIGHT HIP REASON FOR EXAM: Male, 87 years old. pain TECHNIQUE: 3 views of the pelvis and hip. COMPARISON: 02/19/2021 FINDINGS: There is a non-specific bowel gas pattern. Normal visualized soft tissue structures. Normal bilateral iliac wings, sacroiliac joints and visualized sacrum. Normal bilateral superior and inferior pubic rami. Normal pubic symphysis. Normal bilateral ischial tuberosities. Acute slightly displaced fracture of the subcapital femoral neck. Normal acetabulum. Normal hip joint. RAD/HIP, UNI W/ Pelvis 2-3 Views IMPRESSION: Acute slightly displaced fracture of the subcapital femoral neck. Electronically Signed: Kaleb Alicea MD at 20:16 EST ,
[2023-03-03 19:03] LABS: ALB/GLOB Ratio 0.9 RATIO (0.9-2.4); AST(SGOT) 24 U/L (15-37); Alanine Aminotransfer ALT/SGPT 27 U/L (16-61); Albumin, Serum 2.9 g/dL (3.2-5.0); Alkaline Phosphatase 123 U/L (45-117); Anion Gap 4 (5-15); BUN 66 mg/dL (7-18); BUN/Creat Ratio 21.4 RATIO (10-20); Calcium,Total 8.4 mg/dL (8.5-10.1); Chloride 111 mmol/L (98-107); Creatinine, Serum 3.09 mg/dL (0.70-1.30); EST Glomerular Filtration Rate 21 mL/min (>60); Est Glom Filt Rate - Afr Amer 25 mL/min (>60); Estimated Creatinine Clearance 19.75 ml/min; Globulin 3.4 g/dL (2.2-4.2); Glucose 188 mg/dL (74-106); Potassium 4.4 mmol/L (3.5-5.1); Protein, Total 6.3 g/dL (6.4-8.2); Sodium Level 139 mmol/L (136-145); Troponin-I HS 178 pg/mL (3.0-78.0)
[2023-03-03 19:04] LABS: CPK Total, Creatine Kinase 568 U/L (39-308)
[2023-03-03 19:27] LABS: Bacteria 0 SEEN /hpf (None Seen); Mucous, Urine 0 SEEN /hpf (<or=2+); Red Blood Cells-Urine 0 SEEN /hpf (0-5); Squamous Epithelial Cells - UA 0 SEEN /hpf (0-5); White Blood Cells 0 SEEN /hpf (0-5)
--- NOTE | 2023-03-03 19:40 | EX.ED.DYSGE1 ---
HPI History of Present Illness Chief Complaint: Weakness Narrative Narrative: 7-year-old male presenting with history of weakness and falls. Is been increasing over the last couple weeks. His significant other states fell about a week ago into a rock but did not significantly injure himself. Since then has been very unsteady. Denies hitting his head or LOC. He is on Eliquis for history of A-fib. He also has history of CVA, diabetes, hypertension. No black or bloody stools. No fevers or chills. No nausea or vomiting. Patient's states that last night he fell trying to get to the bathroom and she was unable to get him up so she let him sleep on the floor. He was on the floor all night and into the morning. She states she served in lunch at the coffee table because she can get him off the floor. Eventually she called EMS to come bring him to the emergency room for evaluation of his weakness. Patient is complaining of right hip and thigh pain. He fell last evening and tried to catch himself with a lazy boy chair. He states he landed on his right hip and back. Denies hitting his head again or LOC [facility] Medical History Ascending aortic aneurysm Atherosclerosis of coronary artery of [place] heart without angina pectoris Bilateral carotid artery stenosis BLADDER/URINARY TRACT INFECTIONS BLOOD TRANSFUSION A CHILD BPH (benign prostatic hyperplasia) CKD (chronic kidney disease) stage 4, GFR 15-29 ml/min CVA (cerebral vascular accident) Essential hypertension Gout Lipoma of head Neoplasm of skin of forearm Neoplasm of skin of forearm Neoplasm of skin of hand Paroxysmal atrial fibrillation Personal history of other malignant neoplasm of skin PIGMENTED SEBORRHEIC KERATOSIS LEFT CHEST WALL Solar keratosis 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 Stroke Type 2 diabetes mellitus without complication Home Medications lisinopril 20 mg tablet 20 mg PO DAILY BP 07/31/15 [History Last Taken 05/11/17 06:00] atorvastatin 80 mg tablet 80 mg PO DAILY Check with primary doctor 05/04/17 [History Last Taken Unknown] dulaglutide 1.5 mg/0.5 mL subcutaneous pen injector (Trulicity) 3 mg subcut QWEEK Check with primary doctor 02/21/21 [History Last Taken Unknown] escitalopram oxalate 10 mg tablet 10 mg PO DAILY Check with primary doctor 02/21/21 [History Last Taken Unknown] memantine 5 mg tablet 5 mg PO BID Check with primary doctor 02/21/21 [History Last Taken Unknown] apixaban 2.5 mg tablet (Eliquis) 2.5 mg PO BID #60 tabs 02/23/21 [Rx Last Taken Unknown] allopurinol 100 mg tablet 100 mg PO DAILY 08/28/22 [History Last Taken Unknown] cyanocobalamin (vitamin B-12) 1,000 mcg tablet 1,000 mcg PO DAILY 08/28/22 [History Last Taken Unknown] aspirin 81 mg tablet,delayed release (Adult Low Dose Aspirin) 81 mg PO DAILY Check with primary doctor 11/28/22 [History Last Taken Unknown] cholecalciferol (vitamin D3) 1,250 mcg (50,000 unit) tablet 1,250 mcg PO QWEEK 11/28/22 [History Last Taken Unknown] metoprolol tartrate 50 mg tablet 50 mg PO QHS 11/28/22 [History Last Taken Unknown] metoprolol tartrate 50 mg tablet 75 mg PO BREAKFAST Check with primary doctor 11/28/22 [History Last Taken Unknown] hydralazine 50 mg tablet 100 mg PO TID 12/26/22 [History Last Taken Unknown] furosemide 40 mg tablet 40 mg PO Q OTHER DAY 02/02/23 [History Last Taken Unknown] isosorbide mononitrate 30 mg tablet,extended release 24 hr 30 mg PO DAILY #30 tabs 02/21/23 [Rx Last Taken Unknown] Allergy/AdvReac Type Severity Reaction Status Date / Time levofloxacin [From Levaquin] Allergy Other Verified 03/03/23 16:25 acarbose AdvReac Nausea Verified 03/03/23 16:25 metformin AdvReac Other Verified 03/03/23 16:25 Family History Mother CVA (cerebral vascular accident) Father Heart disease Myocardial infarction Aunt Diabetes Uncle Diabetes Surgical History H/O excision of mass History of cardiac catheterization History of colonoscopy History of squamous cell carcinoma excision History of tonsillectomy Social History household members: spouse housing: house Smoking Status: Never smoker second hand exposure: No alcohol intake: never substance use type: does not use what type of physical activity do you participate in: none seatbelt use: sometimes do you feel safe at home: Yes additional social history: SUN EXPOSURE: FREQUENTLY ROS ROS ED Constitutional Constitutional ED: Denies chills, fever(s) or sweats Eyes Eyes: Denies blurry vision or change in vision ENT ENT ED: Denies ear pain or sore throat Cardiovascular Cardiovascular: Denies chest pain, palpitations or racing heartbeat Respiratory/Chest Respiratory/Chest: Denies cough, dyspnea or sputum Gastrointestinal Gastrointestinal: Denies abdominal pain, constipation, diarrhea, nausea or vomiting Genitourinary Genitourinary ED: Denies dysuria, hematuria or urinary frequency Musculoskeletal Musculoskeletal: Reports other Details: Right hip pain ; Denies arthralgias, myalgias or neck pain Integumentary Denies abscess, Abrasions or rash Neurologic Neurologic: Denies headache(s), paresthesias or weakness Psychiatric Psychiatric: Denies anxiety, depression, suicidal ideation or suicidal thoughts Endocrine Endocrinology: Denies polydipsia or polyuria EXAM Physical Exam Const Vital Signs: 03/03/23 16:23 03/03/23 16:26 03/03/23 20:04 Temperature 97.6 F L Temperature Source Oral Pulse Rate 68 68 Respiratory Rate 17 16 Respiratory Pattern Normal Blood Pressure 140/85 H 156/56 H Blood Pressure Mean 103 89 Pulse Ox 96 90 Oxygen Delivery Method Room Air Room Air 03/03/23 20:39 03/03/23 21:33 Temperature 98.1 F Temperature Source Pulse Rate 64 66 Respiratory Rate 16 15 Respiratory Pattern Blood Pressure 162/83 H 156/85 H Blood Pressure Mean 109 108 Pulse Ox 93 95 Oxygen Delivery Method Room Air Positive well nourished General Appearance ED: NAD; Negative for pallor HEENT Reports dry mucous membranes Negative for trauma Mouth ED: Yes dry mucous membranes Mouth: dry mucous membranes Eyes PERRL and EOMs intact bilaterally Neck no lymphadenopathy Chest Wall inspection of chest normal Resp normal respiratory effort and clear to auscultation bilaterally Auscultation: Negative for rales, rhonchi or wheezes Cardio regular rate and regular rhythm GI normal to inspection, nondistended, normoactive bowel sounds Neuro oriented x3 and CN's II-XII intact bilaterally Sensorium / Orientation: alert Motor Exam: strength 5/5 throughout Psych mental status grossly normal Skin no rashes or lesions noted and no wounds General Skin Exam: Negative for jaundice or pallor MDM MDM MDM Narrative Medical decision making narrative: Patient presenting with right hip pain. He said falls at home. It sounds as if he fell last evening and spent the night on the floor. His states she could not get him up so she let him sleep there. She also reports she let him stay there all morning and fed him lunch at the coffee table. Patient has not received anything for pain prior to arrival. He is complaining of right hip pain. He is able to slightly move this however he has a positive logroll. No obvious deformity. Is unclear why the patient fell in the first place. He is a poor informant per his . Differential includes ACS, pneumonia, UTI, COVID, influenza, dehydration, electrolyte abnormalities, hip fracture, hip contusion, femur fracture. CBC was obtained and shows no leukocytosis. Hemoglobin stable at 10.2. Platelets are normal at 199. CMP shows a mildly elevated phosphatase but otherwise his LFTs are normal. Glucose 198 without anion gap. Creatinine is slightly elevated at 3.09 baseline 2.7. Patient was given 500 cc of normal saline. EKG on my interpretation shows a normal sinus rhythm with a ventricular rate of 72 bpm without sign of ischemic change. Chest x-ray on my interpretation shows no acute process. The radiologist interprets this and agrees. CT brain was interpreted as negative as well as a CT of the cervical spine. CT of the right hip on my interpretation shows a nondisplaced right capital femoral neck fracture. Case was discussed with Dr. Helton who is on-call for orthopedics. He recommended holding the patient's Eliquis. He plans on doing surgery on Monday. He will need to be medically clear cardiac barnett because his initial troponin was elevated at 78. Delta troponin came back at 145. Patient does not report any chest pain. Again the states that he is a very poor informant. CPK was elevated but does not appear to be consistent with rhabdomyolysis. Patient will need more IV fluids after admission. Given this I did discuss with hospitalist for admission. Impression: 1. Weakness 2. Fall 3. MELL 4. Right hip fracture 5. Elevated troponin Lab Data Labs: Laboratory Results - last 24 hr 03/03/23 03/03/23 03/03/23 18:30 19:22 20:23 WBC 11.0 RBC 3.54 L Hgb 10.2 L Hct 32.5 L MCV 91.8 MCH 28.8 MCHC 31.4 L RDW Std Deviation 47.6 H RDW Coeff of Shen 14.0 Plt Count 199 MPV 9.4 Immature Gran % (Auto) 0.500 Neut % (Auto) 81.8 H Lymph % (Auto) 7.2 L Mora % (Auto) 6.9 Eos % (Auto) 3.1 Baso % (Auto) 0.5 Absolute Neuts (auto) 9.0 H Absolute Lymphs (auto) 0.79 L Nucleated RBC % 0 Sodium 139 Potassium 4.4 Chloride 111 H Carbon Dioxide 24.0 Anion Gap 4 L BUN 66 H Creatinine 3.09 H Estim Creat Clear Calc 19.75 Est GFR (MDRD) Af Amer 25 L Est GFR (MDRD) Non-Af 21 L BUN/Creatinine Ratio 21.4 H Glucose 188 H Calcium 8.4 L Total Bilirubin 0.40 AST 24 ALT 27 Alkaline Phosphatase 123 H Total Creatine Kinase 568 H Troponin I High Sens 178 H* 145 H* Total Protein 6.3 L Albumin 2.9 L Globulin 3.4 Albumin/Globulin Ratio 0.9 Urine Color Yellow Urine Clarity Clear Urine pH 5.0 Ur Specific [place] 1.015 Urine Protein 100 H Urine Glucose (UA) Normal Urine Ketones Negative Urine Occult Blood Negative Urine Nitrite Negative Urine Bilirubin Negative Urine Urobilinogen Normal Ur Leukocyte Esterase Negative Urine RBC 0 SEEN Urine WBC 0 SEEN Ur Squamous Epith Cells 0 SEEN Urine Bacteria 0 SEEN Urine Mucus 0 SEEN Radiography Diagnostic Testing: Clinical Impression(s) from Imaging Studies Brain CT 03/03/23 18:09 IMPRESSION: Chronic involutional changes of the brain. Electronically Signed: Kaleb Alicea MD at 20:03 EST , Cervical Spine CT 03/03/23 18:09 IMPRESSION: No acute fracture or subluxation. Electronically Signed: Kaleb Alicea MD at 20:08 EST , Chest X-Ray 03/03/23 18:50 IMPRESSION: 1. No active pulmonary disease. 2. 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 3. Cardiomegaly. Electronically Signed: Kaleb Alicea MD at 20:15 EST Reading Location ID and State: [id number] / [place] Tel , Service support , Hip/Pelvis X-Ray 03/03/23 18:50 IMPRESSION: Acute slightly displaced fracture of the subcapital femoral neck. Electronically Signed: Kaleb Alicea MD at 20:16 EST , Discharge Plan Triage Chief Complaint: Weakness ED Provider: Russ Sierra Dx/Rx/DC Orders Prescriptions: No Action aspirin [Adult Low Dose Aspirin] 81 mg tablet,delayed release (DR/EC) 81 mg PO DAILY cholecalciferol (vitamin D3) 1,250 mcg (50,000 unit) tablet 1,250 mcg PO QWEEK hydralazine 50 mg tablet 100 mg PO TID Patient Comments: TAKE 2 TABLETS BY MOUTH THREE TIMES DAILY lisinopril 20 MG tablet 20 mg PO DAILY atorvastatin 80 MG tablet 80 mg PO DAILY escitalopram oxalate 10 mg tablet 10 mg PO DAILY memantine 5 mg tablet 5 mg PO BID Trulicity 1.5 mg/0.5 mL pen injector 3 mg SUBCUT QWEEK Hold Instructions: Resume on 03/23/21. Hold while at assisted. Rx Instructions: on mon Eliquis 2.5 mg tablet 2.5 mg PO BID Qty: 60 0RF metoprolol tartrate 50 mg tablet 75 mg PO BREAKFAST cyanocobalamin (vitamin B-12) 1,000 mcg Tablet 1,000 mcg PO DAILY allopurinol 100 mg tablet 100 mg PO DAILY metoprolol tartrate 50 mg tablet 50 mg PO QHS furosemide 40 mg tablet 40 mg PO Q OTHER DAY isosorbide mononitrate 30 mg tablet extended release 24 hr 30 mg PO DAILY Qty: 30 11RF Primary Care Provider: Chavo Herman Referrals: Chavo Herman MD [Primary Care Provider] -
[2023-03-03 19:45] LABS: Color, Urine Yellow (Yellow); Glucose, Dipstick Normal (Normal); Ketone-Dipstick Negative (Negative); Leukocyte Esterase-Dipstick Negative /ul (Negative); Nitrite-Dipstick Negative (Negative); Occult Blood-Urine Negative /ul (Negative); Protein-Dipstick 100 mg/dl (Negative); Specific Gravity, Urine 1.015 (1.002-1.030); Urine Bilirubin Dipstick Negative (Negative); Urine Clarity Clear (Clear); Urine Urobilinogen Normal (Normal)
[2023-03-03 20:04] VITALS: BP 156/56; PULSE 68; RESP 16; O2SAT 90
[2023-03-03 20:39] VITALS: BP 162/83; PULSE 64; RESP 16; O2SAT 93
[2023-03-03 20:59] LABS: Troponin-I HS 145 pg/mL (3.0-78.0)
[2023-03-03 21:33] VITALS: BP 156/85; PULSE 66; RESP 15; TEMP 36.7; O2SAT 95
[2023-03-03 22:02] VITALS: BP 132/57; PULSE 74; RESP 16; O2SAT 92
--- NOTE | 2023-03-03 22:34 | HP.PCM.HOS_ITS ---
HPI - General General Date of Admission: 03/03/23 Date of Service: 03/03/23 Chief Complaint: Fall and unable to get up. HPI Narrative SUSAN ACOSTA, is a 87 M who presents after a fall today. Patient had fallen and laid around in his house for several hours today. Patient was actually fed while he was on the floor. Patient was getting out of the chair and then just fell. , who is present at bedside, states that he has been just weaker over the past few weeks. Previously was ambulating with a cane but does have a lift chair at home. Getting a lift chair today just very weak and then he fell and was unable to get up. Eventually relented and patient was sent to the emergency room where he was found to have a right subcapital hip fracture. Dr. Helton was contacted from emergency room and was planning on taking the patient to surgery on Monday. Patient does take apixaban chronically. Patient was not having chest pain but troponins were ordered which were elevated. Troponins were 178 and then trended down to 145. [facility] Medical History Ascending aortic aneurysm Atherosclerosis of coronary artery of 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 Stroke Type 2 diabetes mellitus without complication Home Medications lisinopril 20 mg tablet 20 mg PO DAILY BP 07/31/15 [History Last Taken 05/11/17 06:00] atorvastatin 80 mg tablet 80 mg PO DAILY Check with primary doctor 05/04/17 [History Last Taken Unknown] dulaglutide 1.5 mg/0.5 mL subcutaneous pen injector (Trulicity) 3 mg subcut QWEEK Check with primary doctor 02/21/21 [History Last Taken Unknown] escitalopram oxalate 10 mg tablet 10 mg PO DAILY Check with primary doctor 02/21/21 [History Last Taken Unknown] memantine 5 mg tablet 5 mg PO BID Check with primary doctor 02/21/21 [History Last Taken Unknown] apixaban 2.5 mg tablet (Eliquis) 2.5 mg PO BID #60 tabs 02/23/21 [Rx Last Taken Unknown] allopurinol 100 mg tablet 100 mg PO DAILY 08/28/22 [History Last Taken Unknown] cyanocobalamin (vitamin B-12) 1,000 mcg tablet 1,000 mcg PO DAILY 08/28/22 [History Last Taken Unknown] aspirin 81 mg tablet,delayed release (Adult Low Dose Aspirin) 81 mg PO DAILY Check with primary doctor 11/28/22 [History Last Taken Unknown] cholecalciferol (vitamin D3) 1,250 mcg (50,000 unit) tablet 1,250 mcg PO QWEEK 11/28/22 [History Last Taken Unknown] metoprolol tartrate 50 mg tablet 50 mg PO QHS 11/28/22 [History Last Taken Unknown] metoprolol tartrate 50 mg tablet 75 mg PO BREAKFAST Check with primary doctor 11/28/22 [History Last Taken Unknown] hydralazine 50 mg tablet 100 mg PO TID 12/26/22 [History Last Taken Unknown] furosemide 40 mg tablet 40 mg PO Q OTHER DAY 02/02/23 [History Last Taken Unknown] isosorbide mononitrate 30 mg tablet,extended release 24 hr 30 mg PO DAILY #30 tabs 02/21/23 [Rx Last Taken Unknown] Allergy/AdvReac Type Severity Reaction Status Date / Time levofloxacin [From [facility]] Allergy Other Verified 03/03/23 16:25 acarbose AdvReac Nausea Verified 03/03/23 16:25 metformin AdvReac Other Verified 03/03/23 16:25 Family History Mother CVA (cerebral vascular accident) Father Heart disease Myocardial infarction Aunt Diabetes Uncle Diabetes Surgical History H/O excision of mass History of cardiac catheterization History of colonoscopy History of squamous cell carcinoma excision History of tonsillectomy Social History household members: spouse housing: house Smoking Status: Never smoker second hand exposure: No alcohol intake: never substance use type: does not use what type of physical activity do you participate in: none seatbelt use: sometimes do you feel safe at home: Yes additional social history: SUN EXPOSURE: FREQUENTLY ROS ROS Narrative All review of systems were negative except as mentioned above in the history of present illness and the other review of systems. Vital Signs Vital Signs Vital Signs: 03/03/23 16:23 03/03/23 16:26 03/03/23 20:04 Temperature 36.4 C L Temperature Source Oral Pulse Rate 68 68 Respiratory Rate 17 16 Respiratory Pattern Normal Blood Pressure 140/85 H 156/56 H Blood Pressure Mean 103 89 Pulse Ox 96 90 Oxygen Delivery Method Room Air Room Air 03/03/23 20:39 03/03/23 21:33 03/03/23 22:02 Temperature 36.7 C Temperature Source Pulse Rate 64 66 74 Respiratory Rate 16 15 16 Respiratory Pattern Blood Pressure 162/83 H 156/85 H 132/57 H Blood Pressure Mean 109 108 82 Pulse Ox 93 95 92 Oxygen Delivery Method Room Air Room Air Weight Weight: 95.2 kg Body Mass Index (BMI) 27.6 Physical Exam Const alert and no apparent distress HEENT normocephalic and hearing grossly normal bilaterally Eyes Eyes Narrative: Glasses. No icterus Neck no lymphadenopathy Neck Narrative: No thyromegaly Resp normal respiratory effort, no retractions, no use of accessory muscles and clear to auscultation bilaterally Cardio regular rate, regular rhythm, S1 normal heart sound and S2 normal heart sound GI normal to inspection, nondistended, normoactive bowel sounds, soft to palpation and non-tender Extremity normal to inspection and no clubbing, cyanosis or edema Neuro Neuro Narrative: Able to move upper extremities and toes. Sensorium / Orientation: awake and alert Psych affect normal Results Lab / Micro Data Attestation: I reviewed the patient's lab results. 03/03/23 18:30 03/03/23 18:30 Labs: Laboratory Results - last 24 hr 03/03/23 18:30: WBC 11.0, RBC 3.54 L, Hgb 10.2 L, Hct 32.5 L, MCV 91.8, MCH 28.8, MCHC 31.4 L, RDW Std Deviation 47.6 H, RDW Coeff of Shen 14.0, Plt Count 199, MPV 9.4, Immature Gran % (Auto) 0.500, Neut % (Auto) 81.8 H, Lymph % (Auto) 7.2 L, [place] % (Auto) 6.9, Eos % (Auto) 3.1, Baso % (Auto) 0.5, Absolute Neuts (auto) 9.0 H, Absolute Lymphs (auto) 0.79 L, Nucleated RBC % 0, Sodium 139, Potassium 4.4, Chloride 111 H, Carbon Dioxide 24.0, Anion Gap 4 L, BUN 66 H, Creatinine 3.09 H, Estim Creat Clear Calc 19.75, Est GFR (MDRD) Af Amer 25 L, Est GFR (MDRD) Non-Af 21 L, BUN/Creatinine Ratio 21.4 H, Glucose 188 H, Calcium 8.4 L, Total Bilirubin 0.40, AST 24, ALT 27, Alkaline Phosphatase 123 H, Total Creatine Kinase 568 H, Troponin I High Sens 178 H*, Total Protein 6.3 L, Albumin 2.9 L, Globulin 3.4, Albumin/Globulin Ratio 0.9 03/03/23 19:22: Urine Color Yellow, Urine Clarity Clear, Urine pH 5.0, Ur Specific [place] 1.015, Urine Protein 100 H, Urine Glucose (UA) Normal, Urine Ketones Negative, Urine Occult Blood Negative, Urine Nitrite Negative, Urine Bilirubin Negative, Urine Urobilinogen Normal, Ur Leukocyte Esterase Negative, Urine RBC 0 SEEN, Urine WBC 0 SEEN, Ur Squamous Epith Cells 0 SEEN, Urine Bacteria 0 SEEN, Urine Mucus 0 SEEN 03/03/23 20:23: Troponin I High Sens 145 H* EKG Initial EKG: Attestation: I personally reviewed and interpreted this EKG as follows: Prior EKG tracings: available for review EKG Rhythm Intrepretation: Sinus Rhythm (Left anterior fascicular block) Imagaing Radiology Impression Brain CT 03/03/23 18:09 IMPRESSION: Chronic involutional changes of the brain. Electronically Signed: Kaleb Alicea MD at 20:03 EST , Cervical Spine CT 03/03/23 18:09 IMPRESSION: No acute fracture or subluxation. Electronically Signed: Kaleb Alicea MD at 20:08 EST Reading Location ID and State: [id number] / [employer] Tel , Service support , Chest X-Ray 03/03/23 18:50 IMPRESSION: 1. No active pulmonary disease. 2. 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 3. Cardiomegaly. Electronically Signed: Kaleb Alicea MD at 20:15 EST Reading Location ID and State: [id number] / [employer] Tel , Service support , Hip/Pelvis X-Ray 03/03/23 18:50 IMPRESSION: Acute slightly displaced fracture of the subcapital femoral neck. Electronically Signed: Kaleb Alicea MD at 20:16 EST Reading Location ID and State: [id number] / [employer] Tel , Service support , Assessment & Plan Assessment/Plan (1) Closed right hip fracture: PLAN: Status post mechanical fall. Patient will be on bedrest. Check 25- hydroxy vitamin D level. Orthopedics on consult with tentative plan for surgery on Monday. Given patient's complexity, will consult cardiology for further cardiac clearance. I suspect that the patient is likely medically optimized to proceed with surgery though he does carry a higher risk. (2) Elevated troponin I level: PLAN: Likely skewed due to the patient's chronic kidney disease. Has been elevated in the past. Patient did have mildly abnormal stress test with inferior apical ischemia on January 18. Consult cardiology for recommendations. Troponins are trending downwards at present. So I doubt an acute infarct but given patient's complexity we will have cardiology's input. Check echo (3) Ascending aortic aneurysm: PLAN: High risk for repair X-ray, as it is 6 cm. Unclear if it is actually not large or not. Will follow- up on echocardiogram to see if any additional imaging would be necessary. PLAN: Plan Chronic conditions * Paroxysmal atrial fibrillation: Hold apixaban due to impending surgery. * Hyperlipidemia: Continue statin * Gout continue allopurinol * Depression: Continue with escitalopram * Hypertension: Continue with the hydralazine and lisinopril * Chronic kidney disease stage IV: Peers to be stable. If does get worse consider discontinuing lisinopril. * Dementia: Continue with Namenda * Diabetes mellitus type 2: Takes Trulicity at home. Sliding scale insulin here. VTE prophylaxis: SCDs with impending surgery. CODE STATUS: Addressed with the patient and his . Patient is to be DNR Comfort Care arrest. Okay for short-term intubation. Charges/Coding Visit Charges Inpatient E&M: 55521 Init Hosp L3
[2023-03-03 22:54] VITALS: BP 162/75; PULSE 61; RESP 16; TEMP 36.2; O2SAT 95
--- NOTE | 2023-03-03 23:05 | ECHOD_ITS ---
Reason For Study: Elevated Troponin Left Ventricle Normal LV size. Moderate concentric left ventricular hypertrophy. Left ventricular systolic function is normal. The estimated ejection fraction is 60 %. Stage 1 diastolic dysfunction. No regional wall motion abnormalities noted. Right Ventricle Normal RV size. Normal systolic function. Atria Normal left atrium. Normal right atrium. Tricuspid Valve Normal tricuspid valve. Aortic Valve Trisinus/trileaflet aortic valve. Mild focal aortic valve calcification. Pulmonic Valve Normal pulmonic valve. Great Vessels Moderately dilated aortic root. The pulmonary artery is normal size. Inferior vena cava collapse with respiration. Pericardium/Pleural No pericardial effusion. MMode/2D Measurements & Calculations LVIDd: 4.2 cm IVSd: 1.6 cm Ao root diam: 4.5 cm LVIDs: 2.8 cm LVPWd: 1.6 cm RVDd: 2.9 cm FS: 33.4 % LAV(MOD-bp): 42.1 ml SV(MOD-sp4): 40.1 ml LVAd ap4: 24.6 cm2 LAV(MOD-bp) Indexed: 19.2 ml/m2 LVLd ap4: 8.4 cm LAV(MOD-sp2): 35.3 ml EDV(MOD-sp4): 62.1 ml LAV(MOD-sp4): 49.5 ml EDV(sp4-el): 61.3 ml LVAs ap4: 13.2 cm2 LVLs ap4: 6.6 cm ESV(MOD-sp4): 22.1 ml ESV(sp4-el): 22.6 ml EF(MOD-sp4): 64.5 % EF(sp4-el): 63.2 % SV(sp4-el): 38.7 ml LA dimension(2D): 5.1 cm LA A4 area: 17.6 cm2 RA A4 area: 11.3 cm2 Time Measurements MV dec time: 0.37 sec Doppler Measurements & Calculations MV E max jayy: 75.1 cm/sec Lat Peak E' Jayy: 8.8 cm/sec Med Peak E' Jayy: 4.8 cm/sec MV A max jayy: 106.3 cm/sec E/E' lat: 8.6 E/E' med: 15.7 MV E/A: 0.71 Ao V2 max: 153.7 cm/sec LV V1 max: 93.3 cm/sec MV dec slope: 206.9 cm/sec2 Ao max P.5 mmHg LV V1 max P.5 mmHg Ao V2 mean: 120.1 cm/sec LV V1 mean P.4 mmHg Ao mean P.2 mmHg LV V1 mean: 74.3 cm/sec Ao V2 VTI: 29.3 cm LV V1 VTI: 19.8 cm AV (velocity ratio): 0.68 PA V2 max: 105.2 cm/sec TR max jayy: 221.8 cm/sec TR max P.7 mmHg ECHO/Echo Complete Interpretation Summary Normal LV size. Moderate concentric left ventricular hypertrophy. The estimated ejection fraction is 60 %. Left ventricular systolic function is normal. Stage 1 diastolic dysfunction. Ordering Physician: Payam Blanc Referring Physician: Chavo Herman Performed By: Carmen Frederick, CAATRINA, RVT
[2023-03-03 23:39] VITALS: BMI 28.3
[2023-03-04] VITALS (9 sets, daily range): BP systolic 89–146; BP diastolic 48–65; PULSE 65–79; RESP 15–18; TEMP 36.6–37.1; O2SAT 94–97
[2023-03-04 00:06] LABS: ALB/GLOB Ratio 0.9 RATIO (0.9-2.4); AST(SGOT) 26 U/L (15-37); Alanine Aminotransfer ALT/SGPT 26 U/L (16-61); Albumin, Serum 2.8 g/dL (3.2-5.0); Alkaline Phosphatase 123 U/L (45-117); Anion Gap 6 (5-15); BUN 66 mg/dL (7-18); Calcium,Total 8.4 mg/dL (8.5-10.1); Chloride 112 mmol/L (98-107); EST Glomerular Filtration Rate 21 mL/min (>60); Est Glom Filt Rate - Afr Amer 26 mL/min (>60); Estimated Creatinine Clearance 20.34 ml/min; Globulin 3.2 g/dL (2.2-4.2); Glucose 130 mg/dL (74-106); Potassium 4.3 mmol/L (3.5-5.1); Sodium Level 140 mmol/L (136-145)
[2023-03-04 00:08] LABS: Vitamin D,25 Hydroxy 44.3 ng/mL
[2023-03-04 01:04] LABS: Bedside Glucose 128 mg/dL (74-106)
[2023-03-04] MEDS: hydrALAZINE 50 MG Tablet 100 MG PO ×2 (06:21→21:04)
[2023-03-04 06:31] LABS: Absolute Lymphocyte Count 0.93 X10^3/uL (0.83-4.51); Absolute Neutrophil Count 6.1 X10^3/uL (2.0-7.7); Basophil# 0.06 X10^3/uL; Basophil% 0.7 % (0-1); Eosinophils% 5.9 % (0-5); Hematocrit 31.9 % (40-54); Hemoglobin 9.9 g/dL (13.0-16.5); Lymphocyte # 0.93 X10^3/ul (0.83-4.51); Mean Corpuscular Hgb 28.5 pg (27.0-32.0); Mean Corpuscular Volume 91.9 fL (80-94); Mean Platelet Vol. 9.9 fl (6.2-12.0); Monocyte# 0.83 X10^3/uL; Monocyte% 9.8 % (0-10); NRBC Flagged by Analyzer 0 % (0-5); Neutrophil # 6.14 X10^3/uL (2.7-7.7); Neutrophil % 72.2 % (47-70); Platelet Count 194 K/mm3 (150-450); RBC Distribution Width CV 14.1 % (11.6-14.6); RBC Distribution Width SD 47.7 fl (35.1-43.9); Red Blood Count 3.47 M/mm3 (4.6-6.2); White Blood Count 8.5 K/mm3 (4.4-11.0)
[2023-03-04 07:05] LABS: Bedside Glucose 129 mg/dL (74-106)
--- NOTE | 2023-03-04 08:11 | PCM.CONS.GEN ---
Assessment & Plan Assessment/Plan (1) Fracture of femoral neck, right: QUALIFIERS: Encounter type: initial encounter Fracture type: closed Qualified Code(s): S72.001A - Fracture of unspecified part of neck of right femur, initial encounter for closed fracture PLAN: Plan With the patient as well as his Luci who I obtained a verbal consent that was witnessed over the phone for right hip hemiarthroplasty risk benefits alternatives of the procedure were reviewed including risk of bleeding infection nerve artery tissue damage need for further surgery continued pain blood clot and fracture. N.p.o. after midnight hold all anticoagulants antibiotic on-call to the OR Tentative surgery 03/05/2023 if medically cleared. HPI Consult Data Date of Consult: 03/04/23 HPI Narrative HPI Narrative: SUSAN ACOSTA, is a 87 M who presents after ground-level fall in his home. Sustaining a right displaced femoral neck fracture. Has any other injury. 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 Michael for A-fib his last dose was in the morning 03/03/2023. [facility] Medical History Ascending aortic aneurysm Atherosclerosis of coronary artery of [place] heart without angina pectoris Bilateral carotid artery stenosis BLADDER/URINARY TRACT INFECTIONS BLOOD TRANSFUSION A CHILD BPH (benign prostatic hyperplasia) CKD (chronic kidney disease) stage 4, GFR 15-29 ml/min CVA (cerebral vascular accident) Essential hypertension Gout Lipoma of head Neoplasm of skin of forearm Neoplasm of skin of forearm Neoplasm of skin of hand Paroxysmal atrial fibrillation Personal history of other malignant neoplasm of skin PIGMENTED SEBORRHEIC KERATOSIS LEFT CHEST WALL Solar keratosis 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 Stroke Type 2 diabetes mellitus without complication Home Medications lisinopril 20 mg tablet 20 mg PO DAILY BP 07/31/15 [History Last Taken 05/11/17 06:00] atorvastatin 80 mg tablet 80 mg PO DAILY Check with primary doctor 05/04/17 [History Last Taken Unknown] dulaglutide 1.5 mg/0.5 mL subcutaneous pen injector (Trulicity) 3 mg subcut QWEEK Check with primary doctor 02/21/21 [History Last Taken Unknown] escitalopram oxalate 10 mg tablet 10 mg PO DAILY Check with primary doctor 02/21/21 [History Last Taken Unknown] memantine 5 mg tablet 5 mg PO BID Check with primary doctor 02/21/21 [History Last Taken Unknown] apixaban 2.5 mg tablet (Eliquis) 2.5 mg PO BID #60 tabs 02/23/21 [Rx Last Taken Unknown] allopurinol 100 mg tablet 100 mg PO DAILY 08/28/22 [History Last Taken Unknown] cyanocobalamin (vitamin B-12) 1,000 mcg tablet 1,000 mcg PO DAILY 08/28/22 [History Last Taken Unknown] aspirin 81 mg tablet,delayed release (Adult Low Dose Aspirin) 81 mg PO DAILY Check with primary doctor 11/28/22 [History Last Taken Unknown] cholecalciferol (vitamin D3) 1,250 mcg (50,000 unit) tablet 1,250 mcg PO QWEEK 11/28/22 [History Last Taken Unknown] metoprolol tartrate 50 mg tablet 50 mg PO QHS 11/28/22 [History Last Taken Unknown] metoprolol tartrate 50 mg tablet 75 mg PO BREAKFAST Check with primary doctor 11/28/22 [History Last Taken Unknown] hydralazine 50 mg tablet 100 mg PO TID 12/26/22 [History Last Taken Unknown] furosemide 40 mg tablet 40 mg PO Q OTHER DAY 02/02/23 [History Last Taken Unknown] isosorbide mononitrate 30 mg tablet,extended release 24 hr 30 mg PO DAILY #30 tabs 02/21/23 [Rx Last Taken Unknown] Allergy/AdvReac Type Severity Reaction Status Date / Time levofloxacin [From Levaquin] Allergy Other Verified 03/03/23 16:25 acarbose AdvReac Nausea Verified 03/03/23 16:25 metformin AdvReac Other Verified 03/03/23 16:25 Family History Mother CVA (cerebral vascular accident) Father Heart disease Myocardial infarction Aunt Diabetes Uncle Diabetes Surgical History H/O excision of mass History of cardiac catheterization History of colonoscopy History of squamous cell carcinoma excision History of tonsillectomy Social History household members: spouse housing: house Smoking Status: Never smoker second hand exposure: No alcohol intake: never substance use type: does not use what type of physical activity do you participate in: none seatbelt use: sometimes do you feel safe at home: Yes additional social history: SUN EXPOSURE: FREQUENTLY Physical Exam Const no apparent distress Extremity Extremity Narrative: [place] there is no ecchymosis or concerning skin hip compartments are soft is able to plantarflex and dorsiflex the ankle intact sensation light touch and palpable pedal pulses Lab / Micro Data 03/04/23 05:39 03/03/23 23:40 Labs: Laboratory Results - last 24 hr 03/03/23 18:30: WBC 11.0, RBC 3.54 L, Hgb 10.2 L, Hct 32.5 L, MCV 91.8, MCH 28.8, MCHC 31.4 L, RDW Std Deviation 47.6 H, RDW Coeff of Shen 14.0, Plt Count 199, MPV 9.4, Immature Gran % (Auto) 0.500, Neut % (Auto) 81.8 H, Lymph % (Auto) 7.2 L, [place] % (Auto) 6.9, Eos % (Auto) 3.1, Baso % (Auto) 0.5, Absolute Neuts (auto) 9.0 H, Absolute Lymphs (auto) 0.79 L, Nucleated RBC % 0, Sodium 139, Potassium 4.4, Chloride 111 H, Carbon Dioxide 24.0, Anion Gap 4 L, BUN 66 H, Creatinine 3.09 H, Estim Creat Clear Calc 19.75, Est GFR (MDRD) Af Amer 25 L, Est GFR (MDRD) Non-Af 21 L, BUN/Creatinine Ratio 21.4 H, Glucose 188 H, Calcium 8.4 L, Total Bilirubin 0.40, AST 24, ALT 27, Alkaline Phosphatase 123 H, Total Creatine Kinase 568 H, Troponin I High Sens 178 H*, Total Protein 6.3 L, Albumin 2.9 L, Globulin 3.4, Albumin/Globulin Ratio 0.9 03/03/23 19:22: Urine Color Yellow, Urine Clarity Clear, Urine pH 5.0, Ur Specific [place] 1.015, Urine Protein 100 H, Urine Glucose (UA) Normal, Urine Ketones Negative, Urine Occult Blood Negative, Urine Nitrite Negative, Urine Bilirubin Negative, Urine Urobilinogen Normal, Ur Leukocyte Esterase Negative, Urine RBC 0 SEEN, Urine WBC 0 SEEN, Ur Squamous Epith Cells 0 SEEN, Urine Bacteria 0 SEEN, Urine Mucus 0 SEEN 03/03/23 20:23: Troponin I High Sens 145 H* 03/03/23 23:40: Sodium 140, Potassium 4.3, Chloride 112 H, Carbon Dioxide 22.0, Anion Gap 6, BUN 66 H, Creatinine 3.00 H, Estim Creat Clear Calc 20.34, Est GFR (MDRD) Af Amer 26 L, Est GFR (MDRD) Non-Af 21 L, BUN/Creatinine Ratio 22.0 H, Glucose 130 H, Calcium 8.4 L, Total Bilirubin 0.20, AST 26, ALT 26, Alkaline Phosphatase 123 H, Total Protein 6.0 L, Albumin 2.8 L, Globulin 3.2, Albumin/Globulin Ratio 0.9, Vitamin D 25-Hydroxy 44.3 03/04/23 00:24: POC Glucose 128 H 03/04/23 05:39: WBC 8.5, RBC 3.47 L, Hgb 9.9 L, Hct 31.9 L, MCV 91.9, MCH 28.5, MCHC 31.0 L, RDW Std Deviation 47.7 H, RDW Coeff of Shen 14.1, Plt Count 194, MPV 9.9, Immature Gran % (Auto) 0.400, Neut % (Auto) 72.2 H, Lymph % (Auto) 11.0 L, [place] % (Auto) 9.8, Eos % (Auto) 5.9 H, Baso % (Auto) 0.7, Absolute Neuts (auto) 6.1, Absolute Lymphs (auto) 0.93, Nucleated RBC % 0 03/04/23 06:33: POC Glucose 129 H Imagaing Radiology Impression Brain CT 03/03/23 18:09 IMPRESSION: Chronic involutional changes of the brain. Electronically Signed: Kaleb Alicea MD at 20:03 EST , Cervical Spine CT 03/03/23 18:09 IMPRESSION: No acute fracture or subluxation. Electronically Signed: Kaleb Alicea MD at 20:08 EST , Chest X-Ray 03/03/23 18:50 IMPRESSION: 1. No active pulmonary disease. 2. 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 3. Cardiomegaly. Electronically Signed: Kaleb Alicea MD at 20:15 EST Reading Location ID and State: [id number] / [employer] Tel , Service support , Hip/Pelvis X-Ray 03/03/23 18:50 IMPRESSION: Acute slightly displaced fracture of the subcapital femoral neck. Electronically Signed: Kaleb Alicea MD at 20:16 EST Reading Location ID and State: [id number] / [employer] Tel , Service support ,
[2023-03-04 08:33] LABS: Anion Gap 6 (5-15); BUN 63 mg/dL (7-18); BUN/Creat Ratio 20.7 RATIO (10-20); Calcium,Total 8.5 mg/dL (8.5-10.1); Chloride 113 mmol/L (98-107); Creatinine, Serum 3.04 mg/dL (0.70-1.30); EST Glomerular Filtration Rate 21 mL/min (>60); Est Glom Filt Rate - Afr Amer 25 mL/min (>60); Estimated Creatinine Clearance 18.92 ml/min; Glucose 146 mg/dL (74-106); Potassium 4.2 mmol/L (3.5-5.1); Sodium Level 141 mmol/L (136-145)
[2023-03-04] MEDS: Metoprolol Tartrate 50 MG Tablet 75 MG PO (08:44)
[2023-03-04] MEDS: Memantine Hydrochloride 5 MG Tablet PO ×2 (08:45→21:03)
[2023-03-04] MEDS: Escitalopram Oxalate 10 MG Tablet PO (08:45)
[2023-03-04] MEDS: Isosorbide Mononitrate 30 MG Tablet PO (08:45)
[2023-03-04] MEDS: Senna/Docusate Sodium 1 Tablet 2 TABLET PO ×2 (08:45→21:03)
[2023-03-04] MEDS: Cyanocobalamin 500 MCG Tablet 1000 MCG PO (08:46)
[2023-03-04] MEDS: Lisinopril 20 MG Tablet PO (08:46)
[2023-03-04] MEDS: Allopurinol 100 MG Tablet PO (08:46)
--- NOTE | 2023-03-04 09:44 | CASEMGMT ---
Social Work Both Living Will and Healthcare POA scanned into [facility], Luci is listed as healthcare POA, with Gopal Allred as first alternate and Ilir Allred as second alternate. HU August
--- NOTE | 2023-03-04 10:51 | PCM.CONS.C ---
Assessment & Plan Assessment/Plan (1) Preop cardiovascular exam: PLAN: In terms of preoperative evaluation for his hip fracture I think that his perioperative risk is approximately 7% for perioperative event and this fairly urgent surgery. His ejection fraction is noted to be preserved and this bodes well for him. I will recommend that postoperatively he be followed closely with serial enzymes for the first 24 hours and cautious IV hydration. 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 I would not recommend we make any changes at this time he appears to be on appropriate medical therapy. We will also continue high intensity statin (3) Paroxysmal atrial fibrillation: PLAN: He does have a history of paroxysmal atrial fibrillation but appears to be in sinus rhythm at this time which will be ideal he will remain on the beta-wayne. His Eliquis can be held till postoperatively. (4) Ascending aortic aneurysm: PLAN: He does have a stable dilated aortic root. (5) Essential hypertension: PLAN: His blood pressure is under good control at this particular time and I would not recommend we make any other major changes. Thank you for allowing me to participate in the care of your patient. Please don't hesitate to call if any issues arise. HPI Consult Data Date of Consult: 03/04/23 HPI Narrative HPI Narrative: SUSAN ACOSTA, is a 87 M who presents with a fracture of his hip. He is being consulted for preoperative cardiac evaluation. He does have a known history of coronary artery disease dating back to 2006 when he presented with chest discomfort and underwent a cardiac catheterization which demonstrated normal left main coronary artery, left anterior descending artery with 40 to 50% stenosis, left circumflex artery with mild disease in the right coronary artery which was totally occluded with [id number] collaterals filling the of the circumflex artery. Ejection fraction was preserved and medical therapy was recommended at that time. In 2008 he underwent a repeat cardiac catheterization which demonstrated the same. His aortic root was noted to be mildly dilated. He underwent an echocardiographic evaluation in December 2022 which demonstrated preserved ejection fraction with a mildly dilated aortic root measuring approximately 4 cm. He denies any chest pain or shortness of breath or paroxysmal nocturnal dyspnea or pedal edema he has had no neck arm or jaw discomfort to suggest angina. He underwent a pharmacologic stress test in December 2022 demonstrating mild inferoapical ischemia. At this time his EKG demonstrates no acute changes and his cardiac enzymes are normal. He is being considered for surgery of the right femoral neck in a.[facility] Medical History Ascending aortic aneurysm Atherosclerosis of coronary artery of [place] heart without angina pectoris Bilateral carotid artery stenosis BLADDER/URINARY TRACT INFECTIONS BLOOD TRANSFUSION A CHILD BPH (benign prostatic hyperplasia) CKD (chronic kidney disease) stage 4, GFR 15-29 ml/min CVA (cerebral vascular accident) Essential hypertension Gout Lipoma of head Neoplasm of skin of forearm Neoplasm of skin of forearm Neoplasm of skin of hand Paroxysmal atrial fibrillation Personal history of other malignant neoplasm of skin PIGMENTED SEBORRHEIC KERATOSIS LEFT CHEST WALL Solar keratosis 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 Stroke Type 2 diabetes mellitus without complication Home Medications lisinopril 20 mg tablet 20 mg PO DAILY BP 07/31/15 [History Last Taken 05/11/17 06:00] atorvastatin 80 mg tablet 80 mg PO DAILY Check with primary doctor 05/04/17 [History Last Taken Unknown] dulaglutide 1.5 mg/0.5 mL subcutaneous pen injector (Trulicity) 3 mg subcut QWEEK Check with primary doctor 02/21/21 [History Last Taken Unknown] escitalopram oxalate 10 mg tablet 10 mg PO DAILY Check with primary doctor 02/21/21 [History Last Taken Unknown] memantine 5 mg tablet 5 mg PO BID Check with primary doctor 02/21/21 [History Last Taken Unknown] apixaban 2.5 mg tablet (Eliquis) 2.5 mg PO BID #60 tabs 02/23/21 [Rx Last Taken Unknown] allopurinol 100 mg tablet 100 mg PO DAILY 08/28/22 [History Last Taken Unknown] cyanocobalamin (vitamin B-12) 1,000 mcg tablet 1,000 mcg PO DAILY 08/28/22 [History Last Taken Unknown] aspirin 81 mg tablet,delayed release (Adult Low Dose Aspirin) 81 mg PO DAILY Check with primary doctor 11/28/22 [History Last Taken Unknown] cholecalciferol (vitamin D3) 1,250 mcg (50,000 unit) tablet 1,250 mcg PO QWEEK 11/28/22 [History Last Taken Unknown] metoprolol tartrate 50 mg tablet 50 mg PO QHS 11/28/22 [History Last Taken Unknown] metoprolol tartrate 50 mg tablet 75 mg PO BREAKFAST Check with primary doctor 11/28/22 [History Last Taken Unknown] hydralazine 50 mg tablet 100 mg PO TID 12/26/22 [History Last Taken Unknown] furosemide 40 mg tablet 40 mg PO Q OTHER DAY 02/02/23 [History Last Taken Unknown] isosorbide mononitrate 30 mg tablet,extended release 24 hr 30 mg PO DAILY #30 tabs 02/21/23 [Rx Last Taken Unknown] Allergy/AdvReac Type Severity Reaction Status Date / Time levofloxacin [From Levaquin] Allergy Other Verified 03/03/23 16:25 acarbose AdvReac Nausea Verified 03/03/23 16:25 metformin AdvReac Other Verified 03/03/23 16:25 Family History Mother CVA (cerebral vascular accident) Father Heart disease Myocardial infarction Aunt Diabetes Uncle Diabetes Surgical History H/O excision of mass History of cardiac catheterization History of colonoscopy History of squamous cell carcinoma excision History of tonsillectomy no surgical history Social History household members: spouse housing: house Smoking Status: Never smoker second hand exposure: No alcohol intake: never substance use type: does not use what type of physical activity do you participate in: none seatbelt use: sometimes do you feel safe at home: Yes additional social history: SUN EXPOSURE: FREQUENTLY ROS Constitutional Constitutional: Denies fever(s) or weight loss Eyes Eyes: Reports systems reviewed and no addt'l complaints, except as documented ENT HEENT: Reports systems reviewed and no addt'l complaints, except as documented Cardiovascular Cardiovascular: Denies chest pain at rest, chest pain with activity, dyspnea at rest, dyspnea on exertion, edema, palpitations or paroxysmal nocturnal dyspnea Respiratory/Chest Respiratory/Chest: Denies dyspnea on exertion, productive cough, shortness of breath at rest or shortness of breath with exertion Gastrointestinal Gastrointestinal: Denies change in bowel habits, nausea, vomiting or weight changes Genitourinary Genitourinary: Denies difficulty urinating Musculoskeletal Musculoskeletal: Denies joint stiffness or muscle weakness Integumentary Integumentary: Denies lesions Neurologic Neurologic: Denies dizziness or syncope Psychiatric Psychiatric: Denies anxiety Endocrine Endocrinology: Denies excessive sweating or fatigue Hematologic/Lymphatic Hematologic/Lymphatic: Denies anemia Allergic/Immunologic Allergic/Immunologic: Denies seasonal rhinorrhea Physical Exam Const alert, oriented x3 and no apparent distress General Appearance: cooperative HEENT hearing grossly normal bilaterally Head and Scalp: atraumatic Eyes EOMs intact bilaterally Neck General: normal visual inspection Chest inspection of chest normal and palpation of chest normal Resp normal respiratory effort Auscultation: clear to auscultation bilaterally Cardio regular rate, regular rhythm, S1 normal heart sound and S2 normal heart sound Jugular Venous Distention: JVD GI normal to inspection, nondistended, normoactive bowel sounds Extremity normal capillary refill and no pedal edema Peripheral Pulses: Yes pulses 2+ throughout and femoral pulses present Skin no rashes or lesions noted Neuro oriented x3 and CN's II-XII intact bilaterally Psych Appearance: grossly normal and appropriate Risk Stratification Risk Stratification Applicable: No Objective Data Vital Signs: Vital Signs Temp Pulse Resp BP Pulse Ox O2 Del Method 98.7 F 79 17 110/65 94 Room Air 03/04/23 08:38 03/04/23 08:44 03/04/23 08:38 03/04/23 08:44 03/04/23 08:38 03/04/23 08:38 Oxygen Delivery Method Room Air Weight: 203 lb 7.787 oz Body Mass Index (BMI) 28.3 Intake & Output: Intake and Output for Last 24 Hours 03/02/23 03/03/23 03/04/23 23:59 23:59 23:59 Intake Total 500 / 500 Output Total 500 / 500 Balance 500 / 500 -500 / -500 Lab / Micro Data 03/04/23 05:39 03/04/23 05:39 Labs: Laboratory Results - last 24 hr 03/03/23 18:30: WBC 11.0, RBC 3.54 L, Hgb 10.2 L, Hct 32.5 L, MCV 91.8, MCH 28.8, MCHC 31.4 L, RDW Std Deviation 47.6 H, RDW Coeff of Shen 14.0, Plt Count 199, MPV 9.4, Immature Gran % (Auto) 0.500, Neut % (Auto) 81.8 H, Lymph % (Auto) 7.2 L, [place] % (Auto) 6.9, Eos % (Auto) 3.1, Baso % (Auto) 0.5, Absolute Neuts (auto) 9.0 H, Absolute Lymphs (auto) 0.79 L, Nucleated RBC % 0, Sodium 139, Potassium 4.4, Chloride 111 H, Carbon Dioxide 24.0, Anion Gap 4 L, BUN 66 H, Creatinine 3.09 H, Estim Creat Clear Calc 19.75, Est GFR (MDRD) Af Amer 25 L, Est GFR (MDRD) Non-Af 21 L, BUN/Creatinine Ratio 21.4 H, Glucose 188 H, Calcium 8.4 L, Total Bilirubin 0.40, AST 24, ALT 27, Alkaline Phosphatase 123 H, Total Creatine Kinase 568 H, Troponin I High Sens 178 H*, Total Protein 6.3 L, Albumin 2.9 L, Globulin 3.4, Albumin/Globulin Ratio 0.9 03/03/23 19:22: Urine Color Yellow, Urine Clarity Clear, Urine pH 5.0, Ur Specific [place] 1.015, Urine Protein 100 H, Urine Glucose (UA) Normal, Urine Ketones Negative, Urine Occult Blood Negative, Urine Nitrite Negative, Urine Bilirubin Negative, Urine Urobilinogen Normal, Ur Leukocyte Esterase Negative, Urine RBC 0 SEEN, Urine WBC 0 SEEN, Ur Squamous Epith Cells 0 SEEN, Urine Bacteria 0 SEEN, Urine Mucus 0 SEEN 03/03/23 20:23: Troponin I High Sens 145 H* 03/03/23 23:40: Sodium 140, Potassium 4.3, Chloride 112 H, Carbon Dioxide 22.0, Anion Gap 6, BUN 66 H, Creatinine 3.00 H, Estim Creat Clear Calc 20.34, Est GFR (MDRD) Af Amer 26 L, Est GFR (MDRD) Non-Af 21 L, BUN/Creatinine Ratio 22.0 H, Glucose 130 H, Calcium 8.4 L, Total Bilirubin 0.20, AST 26, ALT 26, Alkaline Phosphatase 123 H, Total Protein 6.0 L, Albumin 2.8 L, Globulin 3.2, Albumin/Globulin Ratio 0.9, Vitamin D 25-Hydroxy 44.3 03/04/23 00:24: POC Glucose 128 H 03/04/23 05:39: WBC 8.5, RBC 3.47 L, Hgb 9.9 L, Hct 31.9 L, MCV 91.9, MCH 28.5, MCHC 31.0 L, RDW Std Deviation 47.7 H, RDW Coeff of Shen 14.1, Plt Count 194, MPV 9.9, Immature Gran % (Auto) 0.400, Neut % (Auto) 72.2 H, Lymph % (Auto) 11.0 L, [place] % (Auto) 9.8, Eos % (Auto) 5.9 H, Baso % (Auto) 0.7, Absolute Neuts (auto) 6.1, Absolute Lymphs (auto) 0.93, Nucleated RBC % 0, Sodium 141, Potassium 4.2, Chloride 113 H, Carbon Dioxide 22.0, Anion Gap 6, BUN 63 H, Creatinine 3.04 H, Estim Creat Clear Calc 18.92, Est GFR (MDRD) Af Amer 25 L, Est GFR (MDRD) Non-Af 21 L, BUN/Creatinine Ratio 20.7 H, Glucose 146 H, Calcium 8.5 03/04/23 06:33: POC Glucose 129 H 03/04/23 08:50: Antibody Screen NEGATIVE Cardiology Labs/Tests 03/03/23 18:30: WBC 11.0, RBC 3.54 L, Hgb 10.2 L, Hct 32.5 L, MCV 91.8, MCH 28.8, MCHC 31.4 L, Plt Count 199, MPV 9.4, Immature Gran % (Auto) 0.500, Neut % (Auto) 81.8 H, Lymph % (Auto) 7.2 L, [place] % (Auto) 6.9, Eos % (Auto) 3.1, Baso % (Auto) 0.5, Absolute Neuts (auto) 9.0 H, Nucleated RBC % 0, Sodium 139, Potassium 4.4, Chloride 111 H, Carbon Dioxide 24.0, Anion Gap 4 L, BUN 66 H, Creatinine 3.09 H, Est GFR (MDRD) Af Amer 25 L, Est GFR (MDRD) Non-Af 21 L, BUN/Creatinine Ratio 21.4 H, Glucose 188 H, Calcium 8.4 L, Total Bilirubin 0.40 03/03/23 19:22: Urine Color Yellow, Urine Clarity Clear, Urine pH 5.0, Ur Specific [place] 1.015, Urine Protein 100 H, Urine Glucose (UA) Normal, Urine Ketones Negative, Urine Occult Blood Negative, Urine Nitrite Negative, Urine Bilirubin Negative, Urine Urobilinogen Normal, Ur Leukocyte Esterase Negative, Urine RBC 0 SEEN, Urine WBC 0 SEEN 03/03/23 23:40: Sodium 140, Potassium 4.3, Chloride 112 H, Carbon Dioxide 22.0, Anion Gap 6, BUN 66 H, Creatinine 3.00 H, Est GFR (MDRD) Af Amer 26 L, Est GFR (MDRD) Non-Af 21 L, BUN/Creatinine Ratio 22.0 H, Glucose 130 H, Calcium 8.4 L, Total Bilirubin 0.20 03/04/23 05:39: WBC 8.5, RBC 3.47 L, Hgb 9.9 L, Hct 31.9 L, MCV 91.9, MCH 28.5, MCHC 31.0 L, Plt Count 194, MPV 9.9, Immature Gran % (Auto) 0.400, Neut % (Auto) 72.2 H, Lymph % (Auto) 11.0 L, [place] % (Auto) 9.8, Eos % (Auto) 5.9 H, Baso % (Auto) 0.7, Absolute Neuts (auto) 6.1, Nucleated RBC % 0, Sodium 141, Potassium 4.2, Chloride 113 H, Carbon Dioxide 22.0, Anion Gap 6, BUN 63 H, Creatinine 3.04 H, Est GFR (MDRD) Af Amer 25 L, Est GFR (MDRD) Non-Af 21 L, BUN/Creatinine Ratio 20.7 H, Glucose 146 H, Calcium 8.5 Rhythm: EKG: ECHO: Stress Test: Cardiac Cath: PCI: CT Surgery: Holter monitor: EPS: PPM: CXR: Chest CT Scan: Radiography Diagnostic Testing: Radiology Impression Brain CT 03/03/23 18:09 IMPRESSION: Chronic involutional changes of the brain. Electronically Signed: Kaleb Alicea MD at 20:03 EST Reading Location ID and State: [employer] , Service support , Cervical Spine CT 03/03/23 18:09 IMPRESSION: No acute fracture or subluxation. Electronically Signed: Kaleb Alicea MD at 20:08 EST Reading Location ID and State: [employer] / [employer] , Service support , Chest X-Ray 03/03/23 18:50 IMPRESSION: 1. No active pulmonary disease. 2. 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 3. Cardiomegaly. Electronically Signed: Kaleb Alicea MD at 20:15 EST Reading Location ID and State: [employer] , Service support , Hip/Pelvis X-Ray 03/03/23 18:50 IMPRESSION: Acute slightly displaced fracture of the subcapital femoral neck. Electronically Signed: Kaleb Alicea MD at 20:16 EST Reading Location ID and State: Eligible / [employer] , Service support ,
--- NOTE | 2023-03-04 11:12 | CASEMGMT ---
Social Work SW spoke w/ via telephone as pt has dementia. SW spoke w/her about prior level of function and anticipated discharge plan. PCP: Dr. Herman and Sun Patel NP Specialists: Cardiology: Dr. Carlos. Nephrology: Dr. Laguerre. Vascular: [facility] physician in [place](did not state name) Insurance: [employer] Medicare Pharmacy: [facility] LNOK: , son Gopal, brother Ilir. LW/POA: Luci is POA, is on file here at [facility] Living arrangements/Prior level of function: Pt lives home w/ in a one floor home, a few steps to enter. assists pt with all ADLs, including cooking, cleaning, finances, med management, transportation, bathing, dressing, using restroom. Pt has dementia, and has deficits from prior strokes DME: Pt uses walker, lift chair, shower chair, raised toilet seat. Pt has a cane but does not use. SNF/HHC/Outpt therapy: Pt has been to [facility] in the past, and to [facility], has not had HHC in the past SW spoke w/ via telephone. We spoke about discharge options, would like pt to go to [facility]), he has been there in the past. SW did explain would leave a list of SNF facilities in the room for her to review, and make sure [facility] is still their first choice. SW will follow up w/ on Monday to confirm choices. shelter facility list via [employer] left in room--with facilities in network w/insurance, in pt's preferred geographic area, complete w/quality and resource use data. Plan: SNF, facility TBD, likely [facility]) HU August
[2023-03-04 11:50] LABS: Bedside Glucose 203 mg/dL (74-106)
--- NOTE | 2023-03-04 13:12 | PN_ITS ---
Subjective Subjective Patient seen and examined. He was admitted with a complaint of mechanical fall.He was found to have a right subcapital hip fracture. He is being managed for right hip fracture. He had no active complaints today. HE is confused, due to history of dementia, so unable to do comprehensive review of systems. Objective Data Objective Data Vital Signs: Vital Signs Temp Pulse Resp BP Pulse Ox O2 Del Method 98.7 F 79 17 110/65 94 Room Air 03/04/23 08:38 03/04/23 08:44 03/04/23 08:38 03/04/23 08:44 03/04/23 08:38 03/04/23 08:38 Oxygen Delivery Method Room Air Weight: 203 lb 7.787 oz Body Mass Index (BMI) 28.3 Intake & Output: Intake and Output for Last 24 Hours 03/02/23 03/03/23 03/04/23 23:59 23:59 23:59 Intake Total 500 / 500 Output Total 500 / 500 Balance 500 / 500 -500 / -500 Lab / Micro Data 03/04/23 05:39 03/04/23 05:39 Labs: Laboratory Results - last 24 hr 03/03/23 18:30: WBC 11.0, RBC 3.54 L, Hgb 10.2 L, Hct 32.5 L, MCV 91.8, MCH 28.8, MCHC 31.4 L, RDW Std Deviation 47.6 H, RDW Coeff of Shen 14.0, Plt Count 19 9, MPV 9.4, Immature Gran % (Auto) 0.500, Neut % (Auto) 81.8 H, Lymph % (Auto) 7.2 L, [place] % (Auto) 6.9, Eos % (Auto) 3.1, Baso % (Auto) 0.5, Absolute Neuts (auto) 9.0 H, Absolute Lymphs (auto) 0.79 L, Nucleated RBC % 0, Sodium 139, Potassium 4.4, Chloride 111 H, Carbon Dioxide 24.0, Anion Gap 4 L, BUN 66 H, Creatinine 3.09 H, Estim Creat Clear Calc 19.75, Est GFR (MDRD) Af Amer 25 L, Est GFR (MDRD) Non-Af 21 L, BUN/Creatinine Ratio 21.4 H, Glucose 188 H, Calcium 8.4 L, Total Bilirubin 0.40, AST 24, ALT 27, Alkaline Phosphatase 123 H, Total Creatine Kinase 568 H, Troponin I High Sens 178 H*, Total Protein 6.3 L, Albumin 2.9 L, Globulin 3.4, Albumin/Globulin Ratio 0.9 03/03/23 19:22: Urine Color Yellow, Urine Clarity Clear, Urine pH 5.0, Ur Specific [place] 1.015, Urine Protein 100 H, Urine Glucose (UA) Normal, Urine Ketones Negative, Urine Occult Blood Negative, Urine Nitrite Negative, Urine Bilirubin Negative, Urine Urobilinogen Normal, Ur Leukocyte Esterase Negative, Urine RBC 0 SEEN, Urine WBC 0 SEEN, Ur Squamous Epith Cells 0 SEEN, Urine Bacteria 0 SEEN, Urine Mucus 0 SEEN 03/03/23 20:23: Troponin I High Sens 145 H* 03/03/23 23:40: Sodium 140, Potassium 4.3, Chloride 112 H, Carbon Dioxide 22.0, Anion Gap 6, BUN 66 H, Creatinine 3.00 H, Estim Creat Clear Calc 20.34, Est GFR (MDRD) Af Amer 26 L, Est GFR (MDRD) Non-Af 21 L, BUN/Creatinine Ratio 22.0 H, Glucose 130 H, Calcium 8.4 L, Total Bilirubin 0.20, AST 26, ALT 26, Alkaline Phosphatase 123 H, Total Protein 6.0 L, Albumin 2.8 L, Globulin 3.2, Albumin/Globulin Ratio 0.9, Vitamin D 25-Hydroxy 44.3 03/04/23 00:24: POC Glucose 128 H 03/04/23 05:39: WBC 8.5, RBC 3.47 L, Hgb 9.9 L, Hct 31.9 L, MCV 91.9, MCH 28.5, MCHC 31.0 L, RDW Std Deviation 47.7 H, RDW Coeff of Shen 14.1, Plt Count 194, MPV 9.9, Immature Gran % (Auto) 0.400, Neut % (Auto) 72.2 H, Lymph % (Auto) 11.0 L, [place] % (Auto) 9.8, Eos % (Auto) 5.9 H, Baso % (Auto) 0.7, Absolute Neuts (auto) 6.1, Absolute Lymphs (auto) 0.93, Nucleated RBC % 0, Sodium 141, Potassium 4.2, Chloride 113 H, Carbon Dioxide 22.0, Anion Gap 6, BUN 63 H, Creatinine 3.04 H, Estim Creat Clear Calc 18.92, Est GFR (MDRD) Af Amer 25 L, Est GFR (MDRD) Non-Af 21 L, BUN/Creatinine Ratio 20.7 H, Glucose 146 H, Calcium 8.5 03/04/23 06:33: POC Glucose 129 H 03/04/23 08:50: Blood Type A NEGATIVE, Antibody Screen NEGATIVE 03/04/23 11:33: POC Glucose 203 H Radiography Diagnostic Testing: Radiology Impression Brain CT 03/03/23 18:09 IMPRESSION: Chronic involutional changes of the brain. Electronically Signed: Kaleb Alicea MD at 20:03 EST Reading Location ID and State: [employer] , Service support , Cervical Spine CT 03/03/23 18:09 IMPRESSION: No acute fracture or subluxation. Electronically Signed: Kaleb Alicea MD at 20:08 EST Reading Location ID and State: [id number] / [employer] , Service support , Chest X-Ray 03/03/23 18:50 IMPRESSION: 1. No active pulmonary disease. 2. 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 3. Cardiomegaly. Electronically Signed: Kaleb Alicea MD at 20:15 EST Reading Location ID and State: [employer] / [employer] , Service support , Hip/Pelvis X-Ray 03/03/23 18:50 IMPRESSION: Acute slightly displaced fracture of the subcapital femoral neck. Electronically Signed: Kaleb Alicea MD at 20:16 EST Reading Location ID and State: [email or web address] / [employer] , Service support , Echocardiogram 03/03/23 23:05 Interpretation Summary Normal LV size. Moderate concentric left ventricular hypertrophy. The estimated ejection fraction is 60 %. Left ventricular systolic function is normal. Stage 1 diastolic dysfunction. Ordering Physician: Payam Blanc Referring Physician: Chavo Herman Performed By: Carmen Frederick, RDCS, RVT Physical Exam Const alert and no apparent distress Constitutional Narrative: confused due to dementia Orientation / Consciousness: confused HEENT normocephalic, head/scalp atraumatic, moist oral mucous membranes and oropharynx normal Eyes PERRL and EOMs intact bilaterally Neck no lymphadenopathy and supple Lymph Lymphatic: no lymphadenopathy noted and no lymphedema noted Resp normal respiratory effort, normal air movement and clear to auscultation bilaterally Cardio regular rate, regular rhythm, S1 normal heart sound, S2 normal heart sound and no murmurs GI normal to inspection, nondistended, normoactive bowel sounds, soft to palpation, non-tender and non-distended Extremity Extremity Narrative: RLE shortened and externally rotated. General Extremity: no tenderness to palpation of joints or extremities Skin General Skin Exam: no breakdown and turgor normal Neuro CN's II-XII intact bilaterally, no focal motor deficits and no sensory deficits noted Motor Exam: general weakness Psych thought process normal, cooperative and affect normal Appearance: appropriate Assessment & Plan Assessment/Plan (1) Fracture of femoral neck, right: QUALIFIERS: Encounter type: initial encounter Fracture type: closed Qualified Code(s): S72.001A - Fracture of unspecified part of neck of right femur, initial encounter for closed fracture (2) Closed right hip fracture: PLAN: Plan #Closed right hip fracture due to mechanical fall * orthopedics on board. * on IV morphine, PO oxycodone and PO tylenol prn for pain * for surgery tomorrow * #Elevated troponin * initial troponin was elevated at 178, and trended down to 145. * does have CKD which could be the cause of elevated troponins * He had stress test in January 2023 which showed mildly abnormal stress test with inferior apical ischemia * cardiology consulted for cardiac risk stratification * for echo today * #Ascending aortic aneurysm * high risk for repair. * to follow up with vascular surgery on outpatient basis * #Paroxysmal afib: on eliquis. Hold for impending surgery. #Hyperlipidemia: on statin #Gout: on allopurinol #Depression; on escitalopram #Hypertension: on hydralazine nad lisinopril #CKD IV: stable. Will monitor #Dementia: on namenda. 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 ISS. Accuchecks ACHS. DVT prophylaxis: hold eliquis. SCDs Charges/Coding Visit Charges Inpatient E&M: 70715 Subs Hosp L2
[2023-03-04] MEDS: Insulin Lispro 100 UNIT/ML INSULN.PEN SC ×2 (13:29→16:19)
[2023-03-04] MEDS: Ergocalciferol 1.25 MG (50, 000 UNIT) Capsule PO (16:20)
[2023-03-04 16:44] LABS: Bedside Glucose 199 mg/dL (74-106)
[2023-03-04] MEDS: Metoprolol Tartrate 50 MG Tablet PO (21:02)
[2023-03-04] MEDS: Atorvastatin Calcium 80 MG Tablet PO (21:03)
[2023-03-04] MEDS: Acetaminophen 325 MG Tablet 650 MG PO (21:07)
[2023-03-05] VITALS (20 sets, daily range): BP systolic 116–151; BP diastolic 48–68; PULSE 62–94; RESP 16–18; TEMP 36.3–37; O2SAT 94–98; BMI 28.3
[2023-03-05 02:22] LABS: Bedside Glucose 179 mg/dL (74-106)
[2023-03-05 04:53] LABS: Absolute Lymphocyte Count 1.06 X10^3/uL (0.83-4.51); Absolute Neutrophil Count 8.7 X10^3/uL (2.0-7.7); Basophil# 0.04 X10^3/uL; Basophil% 0.4 % (0-1); Eosinophil# 0.41 X10^3/uL; Eosinophils% 3.7 % (0-5); Hematocrit 31.2 % (40-54); Hemoglobin 9.6 g/dL (13.0-16.5); Lymphocyte # 1.06 X10^3/ul (0.83-4.51); Lymphocyte % 9.4 % (19-41); Mean Corp Hgb Conc 30.8 g/dL (32-36); Mean Corpuscular Hgb 28.8 pg (27.0-32.0); Mean Corpuscular Volume 93.7 fL (80-94); Mean Platelet Vol. 9.8 fl (6.2-12.0); Monocyte% 8.9 % (0-10); NRBC Flagged by Analyzer 0 % (0-5); Neutrophil # 8.66 X10^3/uL (2.7-7.7); Neutrophil % 77.1 % (47-70); Platelet Count 192 K/mm3 (150-450); RBC Distribution Width SD 48.7 fl (35.1-43.9); Red Blood Count 3.33 M/mm3 (4.6-6.2); White Blood Count 11.2 K/mm3 (4.4-11.0)
[2023-03-05 05:24] LABS: Anion Gap 8 (5-15); BUN 75 mg/dL (7-18); BUN/Creat Ratio 20.4 RATIO (10-20); Calcium,Total 8.1 mg/dL (8.5-10.1); Chloride 112 mmol/L (98-107); Creatinine, Serum 3.67 mg/dL (0.70-1.30); EST Glomerular Filtration Rate 17 mL/min (>60); Est Glom Filt Rate - Afr Amer 20 mL/min (>60); Estimated Creatinine Clearance 15.67 ml/min; Glucose 133 mg/dL (74-106); Potassium 4.7 mmol/L (3.5-5.1); Sodium Level 142 mmol/L (136-145)
[2023-03-05 06:12] LABS: Bedside Glucose 120 mg/dL (74-106)
[2023-03-05] MEDS: hydrALAZINE 50 MG Tablet 100 MG PO ×3 (06:30→21:43)
[2023-03-05 07:41] LABS: Bedside Glucose 132 mg/dL (74-106)
--- NOTE | 2023-03-05 08:20 | FEM_PTH ---
PATIENT: SUSAN ACOSTA LOC: PCU U#:[id number] AGE/SX: 87/M ROOM: [facility] RE03/03/[address]: Dr. Cali Hernandez MD : [id number] BED: 1 DIS: 03/10/2023 SPEC #: [id number] RECD: 03/06/23 10:13 STATUS: DOMENICO REQ #: [id number] JOE: 03/05/23 08:[address]: Gustabo Slaughter DEPT: SURGICAL PATHOLOGY RECD BY: Angela Lindsey ENTERED: 03/06/23 11:21 SP TYPE: FEM HEAD OTHR DR: MD Dr. Payam Wan DO Dr. Joseph Borruso, DO Dr. Jayaprakas Dasari, MD Dr. Mark Elderbrock, MD Dr. Nana Yaa Koram, MD Tissues: Femoral region, NOS Procedures: Decalcification bone/plaque Surgery Specimen Level IV Comments: @ Ordering doctor for DEC edited from to DR.JBORRU Márquez by GIANCARLO at 03/06/23 1508 @ Ordering doctor for SUV edited from to DR.JBORRU Márquez by GIANCARLO at 03/06/23 1508 @ Submitting doctor edited from to DR.JBORRU Márquez by GIANCARLO at 03/06/23 1508 HEADER OPERATION: Right hip hemiarthroplasty PRE-OP DIAGNOSIS: Closed right hip fracture TISSUE SUBMITTED: Right femoral head and soft tissue MICROSCOPIC DIAGNOSIS Bone and tissue of right hip, total hip resection: Organizing fracture callus. AM:josh 03/09/2023 MICROSCOPIC DESCRIPTION Slides are reviewed. GROSS DESCRIPTION Received is one container labeled with the patient's name and designated right femoral head and soft tissue. The specimen consists of a candelaria femoral head measuring 5.0 x 5.0 x 4.0 cm. The articular surface is smooth. Resection margin is irregular and hemorrhagic. Also present in the specimen container is a detached piece of bone, portion of femoral neck, measuring 4.0 x 4.0 2.5 cm. Also present in the container are detached pieces of soft tissue measuring in aggregate 5.5 x 2.5 x 0.6 cm. Automotive Teacher sections are submitted in three cassettes as follows: 1 - soft tissue, 2 - detached piece of bone, 3??femoral head. Cassettes 2 & 3 are submitted after decalcification. / SJ:josh 03/06/2023 TC:5 CPT: 14242, 90698
[2023-03-05] MEDS: Cefazolin 2 GM in 0.9% Normal Saline (100mL Bag) 100 ML IV (08:43)
[2023-03-05 09:24] LABS: Hemoglobin A1c 5.9 % (3.8-5.6)
--- NOTE | 2023-03-05 10:30 | PCM.OP.BLANK ---
Operative Report Date of Procedure: 03/05/23 Preoperative diagnosis: Right hip femoral neck fracture displaced Postoperative diagnosis: Same Procedure: Right hip hemiarthroplasty Implants: Gareth Accolade II stem size 6 127 degree neck angle +4 neck length 55 mm outer diameter bipolar head Anesthesia: General l EBL: 150 cc Complications: None Condition: Stable to PACU Indication for procedure: This is a 87-year-old male patient who has had frequent falls had ground-level fall at home sustaining right hip femoral neck fracture displaced. plans for definitive hemiarthroplasty were discussed including risks benefits and alternatives of the procedure were reviewed with the patient including risk of bleeding infection nerve artery tissue damage need for further surgery continue pain postoperative hip precaution restrictions leg length discrepancy and dislocation. Procedure: Patient was met in the preoperative holding area once again the operative extremity was identified by both patient and physician and was marked. Patient was met by anesthesia and brought to the operating room where anesthesia was started . The patient was then positioned in the lateral decubitus position on a well-padded pegboard with an axillary roll. All bony prominences were checked and padded. The patient was prepped and draped in the usual sterile fashion. A timeout was called to ensure the proper patient procedure and extremity were being contemplated. Anatomic landmarks were palpated and marked for a standard posterior lateral approach. A timeout was called to ensure the proper patient procedure and extremity were being contemplated. A 10 blade scalpel was used to make a posterior incision through the skin and subcutaneous tissue. In retractors were used and electrocautery was used to maintain meticulous hemostasis and dissect full-thickness flaps until the gluteal fascia was reached. The gluteal fascia was incised in line with the gluteal fibers. The bursal tissue was then freed from the underside and a Charnley retractor was placed. The fatpad was elevated off of the external rotators with electrocautery and the external rotators were dissected off of the greater trochanter including the piriformis and were tagged with #1 Ethibond for later repair. The joint capsule opened with posterior trapdoor technique. A femoral neck cutting guide was used to alma rosa the neck with a Bovie and an oscillating saw was used to complete the femoral neck cut. the fracture was visualized and with the use of a corkscrew and a skid the femoral head was removed and sized. We then trialed with the matching sizes . Christopher was placed around the lesser trochanter. A femoral elevator was used. As well as a pointed wide Hohmann around the lesser trochanter and a Hohmann to help retract the gluteus medius. A box chisel was used to remove excess lateral neck followed by a canal finder and a lateralizing reamer. This was followed by sequential broaches. Attention was made of the version within the canal. Once the final broach was seated we then trialed and reduced the hip it was determined that a 127 degree neck angle with a +4 neck length was the appropriate size. We then checked stability with shuck testing as well as flexion and interminal rotation then proceeded with hip extension and checked leg lengths at the knees and heels. At this point trials were removed. The femoral stem was inserted. We re-trialed and then proceeded to impact the femoral head onto the Luigi taper. We then surgically reduce the hip check stability again and leg lengths and were satisfied. irricept rinse was allowed to sit for 1 minutes while everyone changed their gloves. Thorough irrigation was performed. Followed by closure of the external rotators with #2 FiberWire followed by closure of gluteal fascia with #1 Ethibond. 0 Vicryl fat stitches and 2-0 Vicryl subcutaneous stitches and darren in the skin. Dressing was applied in the form of silverlon dressing and an abduction pillow was placed. Patient tolerated the procedure well there was no intraoperative complications all counts were correct and the patient was brought back to the PACU in stable condition
[2023-03-05] MEDS: 0.9% Normal Saline (1000mL) 1,000 ML 15 ML IV (10:37)
--- NOTE | 2023-03-05 11:04 | RAD_ITS ---
EXAM: XR RIGHT HIP WITH PELVIS WHEN PERFORMED, 2 OR 3 VIEWS CLINICAL INDICATION: Post Op -- AP both hips on single zev/lateral of op hip PACU TECHNIQUE: Two or three views of the right hip with pelvis when performed. COMPARISON: No relevant prior studies available. FINDINGS: BONES/JOINTS: Right hip prosthesis in place in satisfactory position. SOFT TISSUES: Lateral skin darren noted at the right hip level. No soft tissue swelling or gas. RAD/Hip Min 2 Views (Portable) IMPRESSION: Satisfactory postop changes. Electronically Signed: Benjamin Ram MD at 12:05 EST ,
[2023-03-05 11:11] LABS: Bedside Glucose 157 mg/dL (74-106)
[2023-03-05] MEDS: Senna/Docusate Sodium 1 Tablet 2 TABLET PO ×2 (11:52→21:45)
[2023-03-05] MEDS: Isosorbide Mononitrate 30 MG Tablet PO (11:52)
[2023-03-05] MEDS: Metoprolol Tartrate 50 MG Tablet 75 MG PO (11:52)
[2023-03-05] MEDS: Allopurinol 100 MG Tablet PO (11:53)
[2023-03-05] MEDS: Escitalopram Oxalate 10 MG Tablet PO (11:53)
[2023-03-05] MEDS: Memantine Hydrochloride 5 MG Tablet PO ×2 (11:53→21:44)
[2023-03-05] MEDS: Cyanocobalamin 500 MCG Tablet 1000 MCG PO (11:54)
[2023-03-05] MEDS: Insulin Lispro 100 UNIT/ML INSULN.PEN SC ×2 (11:58→17:31)
[2023-03-05] MEDS: Lactated Ringers 1,000 ML 125 ML IV (13:01)
[2023-03-05] MEDS: Calcium Carbonate 500 MG Tablet PO ×2 (13:04→17:27)
--- NOTE | 2023-03-05 13:37 | PN_ITS ---
Subjective Subjective Patient seen and examined. He had just come back from hip surgery. His son was by his bedside. He had no active complaints and review of systems is otherwise negative. Pain is well controlled. Review of systems is otherwise negative. He has remained hemodynamically stable. Objective Data Objective Data Vital Signs: Vital Signs Temp Pulse Resp BP Pulse Ox O2 Del Method 97.5 F L 62 18 151/53 H 98 Room Air 03/05/23 11:35 03/05/23 11:52 03/05/23 11:35 03/05/23 11:52 03/05/23 13:36 03/05/23 13:36 Oxygen Delivery Method Room Air Weight: 203 lb 7.787 oz Body Mass Index (BMI) 28.3 Intake & Output: Intake and Output for Last 24 Hours 03/03/23 03/04/23 03/05/23 23:59 23:59 23:59 Intake Total 500 / 500 690 / 940 1430 / 1430 Output Total 1800 / 1800 Balance 500 / 500 -1110 / -860 1430 / 1430 Lab / Micro Data 03/05/23 04:28 03/05/23 04:28 Labs: Laboratory Results - last 24 hr 03/04/23 16:18: POC Glucose 199 H 03/04/23 21:01: POC Glucose 179 H 03/05/23 02:51: POC Glucose 120 H 03/05/23 04:28: WBC 11.2 H, RBC 3.33 L, Hgb 9.6 L, Hct 31.2 L, MCV 93.7, MCH 28.8, MCHC 30.8 L, RDW Std Deviation 48.7 H, RDW Coeff of Shen 14.0, Plt Count 192, MPV 9.8, Immature Gran % (Auto) 0.500, Neut % (Auto) 77.1 H, Lymph % (Auto) 9.4 L, [place] % (Auto) 8.9, Eos % (Auto) 3.7, Baso % (Auto) 0.4, Absolute Neuts (auto) 8.7 H, Absolute Lymphs (auto) 1.06, Nucleated RBC % 0, Sodium 142, Potassium 4.7, Chloride 112 H, Carbon Dioxide 22.0, Anion Gap 8, BUN 75 H, Creatinine 3.67 H, Estim Creat Clear Calc 15.67, Est GFR (MDRD) Af Amer 20 L, Est GFR (MDRD) Non-Af 17 L, BUN/Creatinine Ratio 20.4 H, Glucose 133 H, Hemoglobin A1c 5.9 H, Calcium 8.1 L 03/05/23 06:27: POC Glucose 132 H 03/05/23 10:52: POC Glucose 157 H Radiography Diagnostic Testing: Radiology Impression Hip X-Ray 03/05/23 11:04 IMPRESSION: Satisfactory postop changes. Electronically Signed: Benjamin Ram MD at 12:05 EST , Physical Exam Const alert and no apparent distress Constitutional Narrative: confused due to dementia Orientation / Consciousness: confused HEENT normocephalic, head/scalp atraumatic, hearing grossly normal bilaterally, moist oral mucous membranes and oropharynx normal Eyes PERRL and EOMs intact bilaterally Neck no lymphadenopathy and supple Lymph Lymphatic: no lymphadenopathy noted and no lymphedema noted Resp normal respiratory effort, normal air movement, no retractions, no use of accessory muscles and clear to auscultation bilaterally Cardio regular rate, regular rhythm, S1 normal heart sound, S2 normal heart sound and no murmurs GI normal to inspection, nondistended, normoactive bowel sounds, soft to palpation, non-tender and non-distended Extremity normal to inspection and no clubbing, cyanosis or edema Extremity Narrative: Intact dressing over surgical site on right hip. General Extremity: no tenderness to palpation of joints or extremities Skin General Skin Exam: no breakdown and turgor normal Neuro CN's II-XII intact bilaterally, no focal motor deficits and no sensory deficits noted Sensorium / Orientation: awake and alert Motor Exam: general weakness Psych thought process normal, cooperative and affect normal Appearance: appropriate Assessment & Plan Assessment/Plan (1) Fracture of femoral neck, right: QUALIFIERS: Encounter type: initial encounter Fracture type: closed Qualified Code(s): S72.001A - Fracture of unspecified part of neck of right femur, initial encounter for closed fracture (2) Closed right hip fracture: PLAN: Plan #Closed right hip fracture due to mechanical fall * orthopedics on board. * on IV morphine, PO oxycodone and PO tylenol prn for pain * s/p right hip hemiarthroplasty. * PT/OT On board. * fall precautions. * #Elevated troponin * initial troponin was elevated at 178, and trended down to 145. * does have CKD which could be the cause of elevated troponins * He had stress test in January 2023 which showed mildly abnormal stress test with inferior apical ischemia * cardiology consulted for cardiac risk stratification * 2D echo showed EF of 60% with moderate concentric LVH and normal LV systolic function. Has stage 1 diastolic dysfunction. * #Ascending aortic aneurysm * high risk for repair. * to follow up with vascular surgery on outpatient basis * * #MELL on CKD IV * Creatinine is up to 3.67. Baseline creatinine is around 2.4. * Hydrate with IV fluids. Patient started on Ringer's lactate after surgery. * Consult nephrology if kidney function is not improving. * hold lisinopril * #Paroxysmal afib: on eliquis. This was held for surgery. WIll resume tomorrow #Hyperlipidemia: on statin #Gout: on allopurinol #Depression; on escitalopram #Hypertension: on hydralazine nad lisinopril #CKD IV: stable. Will monitor #Dementia: on namenda. 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 ISS. Accuchecks ACHS. DVT prophylaxis: resume eliquis tomorrow. Disposition: He will benefit from placement. PT OT on board and case managemen on board to help facilitate placement. Charges/Coding Visit Charges Inpatient E&M: 15084 Subs Hosp L2
--- NOTE | 2023-03-05 14:56 | NURSING ---
Attempted to get pt up to griselda w/ 2x. Pt unable to stand. Pt would not support his weight at all. Pt assisted back to bed. Will try at later time.
[2023-03-05] MEDS: oxyCODONE 5 MG Tablet PO (17:27)
[2023-03-05] MEDS: Acetaminophen 325 MG Tablet 650 MG PO (17:28)
[2023-03-05 17:31] LABS: Bedside Glucose 205 mg/dL (74-106)
[2023-03-05] MEDS: Cefazolin 1 GM/50 ML BAG IV (17:39)
[2023-03-05] MEDS: Lactated Ringers 1,000 ML 15 ML IV (21:36)
[2023-03-05] MEDS: Atorvastatin Calcium 80 MG Tablet PO (21:44)
[2023-03-05] MEDS: Metoprolol Tartrate 50 MG Tablet PO (21:44)
[2023-03-06] VITALS (9 sets, daily range): BP systolic 91–136; BP diastolic 37–64; PULSE 71–84; RESP 16–18; TEMP 35.7–37.3; O2SAT 96–98
[2023-03-06] MEDS: Cefazolin 1 GM/50 ML BAG IV ×2 (00:17→10:48)
[2023-03-06 00:38] LABS: Bedside Glucose 187 mg/dL (74-106)
[2023-03-06] MEDS: hydrALAZINE 50 MG Tablet 100 MG PO ×2 (04:59→20:08)
[2023-03-06] MEDS: oxyCODONE 5 MG Tablet PO ×2 (05:00→20:17)
[2023-03-06] MEDS: Acetaminophen 325 MG Tablet 650 MG PO ×2 (06:22→18:37)
[2023-03-06] MEDS: APIXABAN 2.5 MG TABLET (WCH) PO ×2 (06:24→20:11)
[2023-03-06] MEDS: Insulin Lispro 100 UNIT/ML INSULN.PEN SC ×3 (06:24→16:47)
[2023-03-06 06:47] LABS: Bedside Glucose 205 mg/dL (74-106)
[2023-03-06 07:19] LABS: Absolute Neutrophil Count 11.9 X10^3/uL (2.0-7.7); Basophil# 0.03 X10^3/uL; Basophil% 0.2 % (0-1); Eosinophil# 0.02 X10^3/uL; Eosinophils% 0.1 % (0-5); Hemoglobin 9.2 g/dL (13.0-16.5); Lymphocyte % 3.6 % (19-41); Mean Corp Hgb Conc 30.7 g/dL (32-36); Mean Corpuscular Hgb 28.8 pg (27.0-32.0); Mean Corpuscular Volume 93.8 fL (80-94); Mean Platelet Vol. 9.8 fl (6.2-12.0); Monocyte# 1.26 X10^3/uL; Monocyte% 9.2 % (0-10); NRBC Flagged by Analyzer 0 % (0-5); Neutrophil # 11.89 X10^3/uL (2.7-7.7); Neutrophil % 86.4 % (47-70); POSITIVE DIFFERENTIAL YES; Platelet Count 219 K/mm3 (150-450); RBC Distribution Width CV 14.2 % (11.6-14.6); RBC Distribution Width SD 48.3 fl (35.1-43.9); White Blood Count 13.8 K/mm3 (4.4-11.0)
[2023-03-06 07:24] LABS: Differential Indicated SCAN CRITERIA MET
--- NOTE | 2023-03-06 07:45 | NURSING ---
no void from 1900 to approx 0600 this shift- straight cathed per Dr. patton;s order- output of 1250.
[2023-03-06 07:53] LABS: Anion Gap 8 (5-15); BUN 73 mg/dL (7-18); BUN/Creat Ratio 19.6 RATIO (10-20); Calcium,Total 8.4 mg/dL (8.5-10.1); Chloride 111 mmol/L (98-107); Creatinine, Serum 3.73 mg/dL (0.70-1.30); EST Glomerular Filtration Rate 17 mL/min (>60); Est Glom Filt Rate - Afr Amer 20 mL/min (>60); Estimated Creatinine Clearance 15.42 ml/min; Glucose 200 mg/dL (74-106); Potassium 4.8 mmol/L (3.5-5.1); Sodium Level 139 mmol/L (136-145)
--- NOTE | 2023-03-06 08:08 | US_ITS ---
STUDY: RENAL ULTRASOUND - COMPLETE REASON FOR EXAM: Male, 87 years old. Rebel on CKD TECHNIQUE: Ultrasound evaluation of the kidneys was performed with real-time and static bang-scale imaging. COMPARISON: None. FINDINGS: RIGHT KIDNEY: Normal location of the right kidney, which is normal in size. The right kidney measures 10.7 cm x 5.4 cm x 5.3 cm. There is a normal cortex of the right kidney. The renal cortex measures 1.6 cm. There is no right renal mass or cyst. There are no right renal calculi. There is no right hydronephrosis. DISTAL RIGHT URETER: There is non-visualization of the distal right ureter. There is no demonstrated right ureterovesical junction calculus. There is no demonstrated right ureteral jet. LEFT KIDNEY: Normal location of the left kidney, which is normal in size. The left kidney measures 10.8 cm x 4.8 cm x 5.7 cm. There is a normal cortex of the left kidney. The renal cortex measures 1.9 cm. There is no left renal mass or cyst. There are no left renal calculi. There is no left hydronephrosis. DISTAL LEFT URETER: There is non-visualization of the distal left ureter. There is no demonstrated left ureterovesical junction calculus. There is no demonstrated left ureteral jet. BLADDER: The distended urinary bladder has a volume of 91 ml. There is a normal wall thickness of the distended urinary bladder. There is no demonstrated mass within the urinary bladder. There are no demonstrated bladder calculi. US/Kidney and Bladder IMPRESSION: Normal ultrasound of the kidneys and urinary bladder. Electronically Signed: Willis Jackson MD at 10:56 EST ,
[2023-03-06] MEDS: Metoprolol Tartrate 50 MG Tablet 75 MG PO (10:46)
[2023-03-06] MEDS: Calcium Carbonate 500 MG Tablet PO ×3 (10:47→16:48)
[2023-03-06] MEDS: Isosorbide Mononitrate 30 MG Tablet PO (10:48)
[2023-03-06] MEDS: 0.9% Normal Saline (1000mL) 1,000 ML 100 ML IV ×2 (10:48→20:05)
[2023-03-06] MEDS: Cyanocobalamin 500 MCG Tablet 1000 MCG PO (10:49)
[2023-03-06] MEDS: Senna/Docusate Sodium 1 Tablet 2 TABLET PO ×2 (10:49→20:08)
[2023-03-06] MEDS: Memantine Hydrochloride 5 MG Tablet PO ×2 (10:49→20:10)
[2023-03-06] MEDS: Escitalopram Oxalate 10 MG Tablet PO (10:49)
[2023-03-06] MEDS: Allopurinol 100 MG Tablet PO (10:50)
--- NOTE | 2023-03-06 11:24 | PN_ITS ---
Subjective Subjective Patient seen and examined. He feels well and had an uneventful night. Review of systems otherwise negative. His creatinine has trended up to 3.73. Today's postop day 1 for right hip arthroplasty. Objective Data Objective Data Vital Signs: Vital Signs Temp Pulse Resp BP Pulse Ox O2 Del Method 98.1 F 71 16 124/59 H 97 Room Air 03/06/23 10:22 03/06/23 10:46 03/06/23 10:22 03/06/23 10:46 03/06/23 10:34 03/06/23 10:34 Oxygen Delivery Method Room Air Weight: 203 lb 7.787 oz Body Mass Index (BMI) 28.3 Intake & Output: Intake and Output for Last 24 Hours 03/04/23 03/05/23 03/06/23 23:59 23:59 23:59 Intake Total 690 / 940 2600 / 3000 650 / 650 Output Total 1800 / 1800 0 / 0 Balance -1110 / -860 2600 / 3000 650 / 650 Lab / Micro Data 03/06/23 06:35 03/06/23 06:35 Labs: Laboratory Results - last 24 hr 03/05/23 17:14: POC Glucose 205 H 03/05/23 21:53: POC Glucose 187 H 03/06/23 06:20: POC Glucose 205 H 03/06/23 06:35: WBC 13.8 H, RBC 3.20 L, Hgb 9.2 L, Hct 30.0 L, MCV 93.8, MCH 28.8, MCHC 30.7 L, RDW Std Deviation 48.3 H, RDW Coeff of Shen 14.2, Plt Count 219, MPV 9.8, Immature Gran % (Auto) 0.500, Neut % (Auto) 86.4 H, Lymph % (Auto) 3.6 L, [place] % (Auto) 9.2, Eos % (Auto) 0.1, Baso % (Auto) 0.2, Absolute Neuts (auto) 11.9 H, Absolute Lymphs (auto) 0.50 L, Nucleated RBC % 0, Differential Comment COMMENT, Sodium 139, Potassium 4.8, Chloride 111 H, Carbon Dioxide 20.0 L, Anion Gap 8, BUN 73 H, Creatinine 3.73 H, Estim Creat Clear Calc 15.42, Est GFR (MDRD) Af Amer 20 L, Est GFR (MDRD) Non-Af 17 L, BUN/Creatinine Ratio 19.6, Glucose 200 H, Calcium 8.4 L Radiography Diagnostic Testing: Radiology Impression Hip X-Ray 03/05/23 11:04 IMPRESSION: Satisfactory postop changes. Electronically Signed: Benjamin Ram MD at 12:05 EST , Renal Ultrasound 03/06/23 08:08 IMPRESSION: Normal ultrasound of the kidneys and urinary bladder. Electronically Signed: Willis Jackson MD at 10:56 EST , Physical Exam Const alert and no apparent distress Constitutional Narrative: confused due to dementia Orientation / Consciousness: confused HEENT normocephalic, head/scalp atraumatic, hearing grossly normal bilaterally, moist oral mucous membranes and oropharynx normal Eyes PERRL and EOMs intact bilaterally Neck no lymphadenopathy and supple Neck Narrative: No thyromegaly Lymph Lymphatic: no lymphadenopathy noted and no lymphedema noted Resp normal respiratory effort, normal air movement, no retractions, no use of accessory muscles and clear to auscultation bilaterally Cardio regular rate, regular rhythm, S1 normal heart sound, S2 normal heart sound and no murmurs GI normal to inspection, nondistended, normoactive bowel sounds, soft to palpation, non-tender and non-distended Extremity normal to inspection and no clubbing, cyanosis or edema Extremity Narrative: Intact dressing over surgical site on right hip. General Extremity: no tenderness to palpation of joints or extremities Skin General Skin Exam: no breakdown and turgor normal Neuro CN's II-XII intact bilaterally, no focal motor deficits and no sensory deficits noted Sensorium / Orientation: awake and alert Motor Exam: general weakness Psych thought process normal, cooperative and affect normal Appearance: appropriate Assessment & Plan Assessment/Plan (1) Fracture of femoral neck, right: QUALIFIERS: Encounter type: initial encounter Fracture type: closed Qualified Code(s): S72.001A - Fracture of unspecified part of neck of right femur, initial encounter for closed fracture (2) Closed right hip fracture: PLAN: Plan #Closed right hip fracture due to mechanical fall * orthopedics on board. * on IV morphine, PO oxycodone and PO tylenol prn for pain * s/p right hip hemiarthroplasty. today is POD 1. * PT/OT On board. * fall precautions. * #Elevated troponin * initial troponin was elevated at 178, and trended down to 145. * does have CKD which could be the cause of elevated troponins * He had stress test in January 2023 which showed mildly abnormal stress test with inferior apical ischemia * cardiology on board * 2D echo showed EF of 60% with moderate concentric LVH and normal LV systolic function. Has stage 1 diastolic dysfunction. * #Ascending aortic aneurysm * high risk for repair. * to follow up with vascular surgery on outpatient basis * * #MELL on CKD IV * Creatinine is up to 3.73 today. Baseline creatinine is around 2.4. * Hydrate with IV fluids. Patient started on Ringer's lactate after surgery. * lisinopril held * nephrology consulted. * Urine urea and urine creatinine ordered to check for Fe urea. Renal ultrasound ordered. Huff catheter inserted to monitor urine output.. Nares, he had 1.2 L of fluid out after being straight cathed this morning so urine retention may likely be contributing to this. * #Paroxysmal afib: on eliquis. resume eliquis today #Hyperlipidemia: on statin #Gout: on allopurinol #Depression; on escitalopram #Hypertension: on hydralazine and lisinopril. Lisinpril held due to MELL. #Dementia: on namenda. 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 ISS. Accuchecks ACHS. DVT prophylaxis: resume eliquis today Disposition: He will benefit from placement. PT OT on board and case management on board to help facilitate placement. Charges/Coding Visit Charges Inpatient E&M: 65771 Subs Hosp L2
[2023-03-06 11:48] LABS: Bedside Glucose 176 mg/dL (74-106)
--- NOTE | 2023-03-06 12:08 | CASEMGMT ---
Addendum entered by Bailey Olson 03/06/23 13:17: SW met with patient's Luci. SW introduced self and role at [facility]. Luci mentioned no one has been communicating with her about her and patient has dementia. BAR TACKER was in the room and she notified SW that she notified RN. SW then showed Luci the list list of?senior care facility providers including quality and resource use data and consistent with patient?s preferred geographic region, medical needs, and insurance network were provided from the [employer] Guide. SW explained that she will need to pick at least 3 facilities she would be okay with and SW can check on availability. Bailey LIM??? Original Note: SW called patient's Luci. Luci said she is on the way to the hospital now and she will talk with SW when she gets to the hospital. Bailey LIM
--- NOTE | 2023-03-06 12:13 | PN.ORTHO_ITS ---
Subjective Subjective Patient seen and examined complain of pain in right hip, denies shortness of breath or chest pain Objective Data Objective Data Vital Signs: Vital Signs Temp Pulse Resp BP Pulse Ox O2 Del Method 98.1 F 71 16 124/59 H 97 Room Air 03/06/23 10:22 03/06/23 10:46 03/06/23 10:22 03/06/23 10:46 03/06/23 10:34 03/06/23 10:34 Oxygen Delivery Method Room Air Weight: 203 lb 7.787 oz Body Mass Index (BMI) 28.3 Intake & Output: Intake and Output for Last 24 Hours 03/04/23 03/05/23 03/06/23 23:59 23:59 23:59 Intake Total 690 / 940 2600 / 3000 700 / 700 Output Total 1800 / 1800 0 / 0 Balance -1110 / -860 2600 / 3000 700 / 700 Lab / Micro Data 03/06/23 06:35 03/06/23 06:35 Labs: Laboratory Results - last 24 hr 03/05/23 17:14: POC Glucose 205 H 03/05/23 21:53: POC Glucose 187 H 03/06/23 06:20: POC Glucose 205 H 03/06/23 06:35: WBC 13.8 H, RBC 3.20 L, Hgb 9.2 L, Hct 30.0 L, MCV 93.8, MCH 28.8, MCHC 30.7 L, RDW Std Deviation 48.3 H, RDW Coeff of Shen 14.2, Plt Count 219, MPV 9.8, Immature Gran % (Auto) 0.500, Neut % (Auto) 86.4 H, Lymph % (Auto) 3.6 L, [place] % (Auto) 9.2, Eos % (Auto) 0.1, Baso % (Auto) 0.2, Absolute Neuts (auto) 11.9 H, Absolute Lymphs (auto) 0.50 L, Nucleated RBC % 0, Differential Comment COMMENT, Sodium 139, Potassium 4.8, Chloride 111 H, Carbon Dioxide 20.0 L, Anion Gap 8, BUN 73 H, Creatinine 3.73 H, Estim Creat Clear Calc 15.42, Est GFR (MDRD) Af Amer 20 L, Est GFR (MDRD) Non-Af 17 L, BUN/Creatinine Ratio 19.6, Glucose 200 H, Calcium 8.4 L 03/06/23 11:04: POC Glucose 176 H Radiography Diagnostic Testing: Radiology Impression Renal Ultrasound 03/06/23 08:08 IMPRESSION: Normal ultrasound of the kidneys and urinary bladder. Electronically Signed: Willis Jackson MD at 10:56 EST , Physical Exam Const no apparent distress Extremity Extremity Narrative: Right hip dressing clean dry intact compartment soft neurovascular intact EHL tibialis anterior gastrocsoleus intact sensation light touch palpable pedal pulses Assessment & Plan Assessment/Plan (1) Fracture of femoral neck, right: QUALIFIERS: Encounter type: initial encounter Fracture type: closed Qualified Code(s): S72.001A - Fracture of unspecified part of neck of right femur, initial encounter for closed fracture PLAN: Plan Postop day #1 right hip hemiarthroplasty PT OT weightbearing as tolerated hip precautions Patient has resumed his preoperative dose of Eliquis, SCDs JES hose while in hospital Please leave dressing undisturbed 5 days postop. First dressing change 1 05/11/2022 at which time the incision should be cleaned with warm water and antibacterial soap daily and a dry dressing replaced daily until there is no drainage for 2 consecutive days then may leave open to air. Wound check staple removal in the office 2 weeks or if patient is in the hospital rehab or TCU I am happy to see him over there.
--- NOTE | 2023-03-06 13:17 | CASEMGMT ---
SW went back to patient's room per patient's Luci's request. Her 3 choices are TCU, [facility], and [facility]. SW let her know that TCU accepts patient's insurance on a case by case basis. KAVEH explained once therapy has seen patient TCU admissions can review patient's information. KAVEH did make a referral to [facility] in TCU, but atient has not been seen by therapy yet. Bailey LIM
--- NOTE | 2023-03-06 15:01 | CHAPLAIN ---
Type of Pastoral Visit _x__ Initial Visit ___ Follow-up Visit ___ On-call Visit ___ General Patient Visit ___ Spiritual Assessment ___ Family Conference ___ Bereavement ___ Rapid Response ___ Code Blue ___ Other (describe below) Pastoral Care Referral From ___ Patient _x__ Family ___ Nurse ___ Physician ___ Entry Level Chemist ___ Break Out Man ___ Other (describe below) Sacrament/Intervention _x__ Active listening ___ Anointing ___ Jewish ___ Bereavement ___ Communion ___ Chen exploration ___ ___ Life review _x__ Prayer ___ Reconciliation ___ Sacrament of Sick _x__ Supportive presence ___ Wedding ___ Other (describe below) Pastoral Comments patient was slow to respond but did engage in answering questions and then asking some; had to wait for patient to get the words out that he needed; pt did welcome presence and prayer
--- NOTE | 2023-03-06 16:19 | CON.PCM.RE_ITS ---
Assessment & Plan Assessment/Plan (1) CKD stage 4 due to type 1 diabetes mellitus: (2) MELL (acute kidney injury): PLAN: Baseline cr is around 2.4 to 2.6. proteinuria. MELL now with cr upto 3.7 renal US last month was ok. Renal dopplers in the past showed unilateral stenosis, saw vascular at [facility] and was told that he is not a candidate. developed some retention here, johnson in. urine output is decent dc lisinopril hold lasix for now dw family at bedside HPI Consult Data Date of Consult: 03/06/23 HPI Narrative Reason for Consultation: MELL HPI Narrative: SUSAN ACOSTA, is a 87 M who was admitted to hospital. renal consulted for MELL. He has known history of CKD stage 4, baseline cr around 2.4 to 2.6. history of volume issues, takes lasix at home. since admission cr has increased to 3.7 or so today. urinary retention s.p johnson. breathing is ok. some LE edema. [facility] Medical History Ascending aortic aneurysm Atherosclerosis of coronary artery of [place] heart without angina pectoris Bilateral carotid artery stenosis BLADDER/URINARY TRACT INFECTIONS BLOOD TRANSFUSION A CHILD BPH (benign prostatic hyperplasia) CKD (chronic kidney disease) stage 4, GFR 15-29 ml/min CVA (cerebral vascular accident) Essential hypertension Gout Lipoma of head Neoplasm of skin of forearm Neoplasm of skin of forearm Neoplasm of skin of hand Paroxysmal atrial fibrillation Personal history of other malignant neoplasm of skin PIGMENTED SEBORRHEIC KERATOSIS LEFT CHEST WALL Solar keratosis 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 Stroke Type 2 diabetes mellitus without complication Home Medications lisinopril 20 mg tablet 20 mg PO DAILY BP 07/31/15 [History Last Taken 05/11/17 06:00] atorvastatin 80 mg tablet 80 mg PO DAILY Check with primary doctor 05/04/17 [History Last Taken Unknown] dulaglutide 1.5 mg/0.5 mL subcutaneous pen injector (Trulicity) 3 mg subcut QWEEK Check with primary doctor 02/21/21 [History Last Taken Unknown] escitalopram oxalate 10 mg tablet 10 mg PO DAILY Check with primary doctor 02/21/21 [History Last Taken Unknown] memantine 5 mg tablet 5 mg PO BID Check with primary doctor 02/21/21 [History Last Taken Unknown] apixaban 2.5 mg tablet (Eliquis) 2.5 mg PO BID #60 tabs 02/23/21 [Rx Last Taken Unknown] allopurinol 100 mg tablet 100 mg PO DAILY 08/28/22 [History Last Taken Unknown] cyanocobalamin (vitamin B-12) 1,000 mcg tablet 1,000 mcg PO DAILY 08/28/22 [History Last Taken Unknown] aspirin 81 mg tablet,delayed release (Adult Low Dose Aspirin) 81 mg PO DAILY Check with primary doctor 11/28/22 [History Last Taken Unknown] cholecalciferol (vitamin D3) 1,250 mcg (50,000 unit) tablet 1,250 mcg PO QWEEK diuretic 11/28/22 [History Last Taken 02/25/23] metoprolol tartrate 50 mg tablet 50 mg PO QHS 11/28/22 [History Last Taken Unknown] metoprolol tartrate 50 mg tablet 75 mg PO BREAKFAST Check with primary doctor 11/28/22 [History Last Taken Unknown] hydralazine 50 mg tablet 100 mg PO TID 12/26/22 [History Last Taken Unknown] furosemide 40 mg tablet 40 mg PO Q OTHER DAY water pill 02/02/23 [History Last Taken 03/03/23] isosorbide mononitrate 30 mg tablet,extended release 24 hr 30 mg PO DAILY #30 tabs 02/21/23 [Rx Last Taken Unknown] Allergy/AdvReac Type Severity Reaction Status Date / Time levofloxacin [From [facility]] Allergy Other Verified 03/03/23 16:25 acarbose AdvReac Nausea Verified 03/03/23 16:25 metformin AdvReac Other Verified 03/03/23 16:25 Family History Mother CVA (cerebral vascular accident) Father Heart disease Myocardial infarction Aunt Diabetes Uncle Diabetes Surgical History H/O excision of mass History of cardiac catheterization History of colonoscopy History of squamous cell carcinoma excision History of tonsillectomy Social History household members: spouse housing: house Smoking Status: Never smoker second hand exposure: No alcohol intake: never substance use type: does not use what type of physical activity do you participate in: none seatbelt use: sometimes do you feel safe at home: Yes additional social history: SUN EXPOSURE: FREQUENTLY ROS ROS Narrative negative except above Physical Exam Narrative Alert awake oriented x 3 no obvious distress no pallor no icterus no JVD s1s2 no murmurs lungs clear abdomen soft no organomegaly no edema no cyanosis johnson + Lab / Micro Data 03/06/23 06:35 03/06/23 06:35 Labs: Laboratory Results - last 24 hr 03/05/23 17:14: POC Glucose 205 H 03/05/23 21:53: POC Glucose 187 H 03/06/23 06:20: POC Glucose 205 H 03/06/23 06:35: WBC 13.8 H, RBC 3.20 L, Hgb 9.2 L, Hct 30.0 L, MCV 93.8, MCH 28.8, MCHC 30.7 L, RDW Std Deviation 48.3 H, RDW Coeff of Shen 14.2, Plt Count 219, MPV 9.8, Immature Gran % (Auto) 0.500, Neut % (Auto) 86.4 H, Lymph % (Auto) 3.6 L, [place] % (Auto) 9.2, Eos % (Auto) 0.1, Baso % (Auto) 0.2, Absolute Neuts (auto) 11.9 H, Absolute Lymphs (auto) 0.50 L, Nucleated RBC % 0, Differential Comment COMMENT, Sodium 139, Potassium 4.8, Chloride 111 H, Carbon Dioxide 20.0 L, Anion Gap 8, BUN 73 H, Creatinine 3.73 H, Estim Creat Clear Calc 15.42, Est GFR (MDRD) Af Amer 20 L, Est GFR (MDRD) Non-Af 17 L, BUN/Creatinine Ratio 19.6, Glucose 200 H, Calcium 8.4 L 03/06/23 11:04: POC Glucose 176 H [place] Radiology Impression Renal Ultrasound 03/06/23 08:08 IMPRESSION: Normal ultrasound of the kidneys and urinary bladder. Electronically Signed: Willis Jackson MD at 10:56 EST ,
[2023-03-06 17:14] LABS: Bedside Glucose 236 mg/dL (74-106)
[2023-03-06 19:06] LABS: Urea Nitrogen, Urine 691 mg/dL (NO RANGE EST.)
[2023-03-06] MEDS: Atorvastatin Calcium 80 MG Tablet PO (20:08)
[2023-03-06] MEDS: Metoprolol Tartrate 50 MG Tablet PO (20:11)
[2023-03-06 21:08] LABS: Bedside Glucose 271 mg/dL (74-106)
[2023-03-07] VITALS (12 sets, daily range): BP systolic 106–132; BP diastolic 47–57; PULSE 69–75; RESP 16–18; TEMP 36.6–37.1; O2SAT 96–99
[2023-03-07] MEDS: hydrALAZINE 50 MG Tablet 100 MG PO ×3 (05:07→19:43)
[2023-03-07] MEDS: Insulin Lispro 100 UNIT/ML INSULN.PEN SC ×3 (05:44→16:34)
[2023-03-07 06:15] LABS: Bedside Glucose 178 mg/dL (74-106)
[2023-03-07 07:41] LABS: Absolute Lymphocyte Count 0.91 X10^3/uL (0.83-4.51); Absolute Neutrophil Count 9.4 X10^3/uL (2.0-7.7); Basophil# 0.02 X10^3/uL; Basophil% 0.2 % (0-1); Eosinophil# 0.28 X10^3/uL; Eosinophils% 2.3 % (0-5); Hematocrit 24.9 % (40-54); Hemoglobin 7.6 g/dL (13.0-16.5); Lymphocyte # 0.91 X10^3/ul (0.83-4.51); Lymphocyte % 7.5 % (19-41); Mean Corp Hgb Conc 30.5 g/dL (32-36); Mean Platelet Vol. 9.9 fl (6.2-12.0); Monocyte# 1.47 X10^3/uL; Monocyte% 12.2 % (0-10); NRBC Flagged by Analyzer 0 % (0-5); Neutrophil # 9.36 X10^3/uL (2.7-7.7); Neutrophil % 77.4 % (47-70); Platelet Count 173 K/mm3 (150-450); RBC Distribution Width CV 14.1 % (11.6-14.6); RBC Distribution Width SD 49.1 fl (35.1-43.9); Red Blood Count 2.62 M/mm3 (4.6-6.2); White Blood Count 12.1 K/mm3 (4.4-11.0)
[2023-03-07 08:06] LABS: Anion Gap 4 (5-15); BUN 79 mg/dL (7-18); BUN/Creat Ratio 21.6 RATIO (10-20); Chloride 113 mmol/L (98-107); Creatinine, Serum 3.65 mg/dL (0.70-1.30); EST Glomerular Filtration Rate 17 mL/min (>60); Est Glom Filt Rate - Afr Amer 21 mL/min (>60); Estimated Creatinine Clearance 15.76 ml/min; Glucose 185 mg/dL (74-106); Potassium 4.9 mmol/L (3.5-5.1); Sodium Level 138 mmol/L (136-145)
--- NOTE | 2023-03-07 08:38 | PCM.PN.REN ---
Subjective Subjective Resting quietly, no overnight events. Objective Data Objective Data Vital Signs: Vital Signs Temp Pulse Resp BP Pulse Ox O2 Del Method 96.2 F L 70 18 110/57 L 96 Room Air 03/06/23 21:35 03/07/23 05:07 03/06/23 21:35 03/06/23 21:35 03/07/23 07:48 03/07/23 07:48 Oxygen Delivery Method Room Air Weight: 92.3 kg Body Mass Index (BMI) 28.3 Intake & Output: Intake and Output for Last 24 Hours 03/05/23 03/06/23 03/07/23 23:59 23:59 23:59 Intake Total 2600 / 3000 2958.58 / 3178.58 1340 / 1340 Output Total 500 / 800 600 / 600 Balance 2600 / 3000 2458.58 / 2378.58 740 / 740 Lab / Micro Data 03/07/23 06:45 03/07/23 06:45 Labs: Laboratory Results - last 24 hr 03/06/23 06:35: Differential Comment COMMENT 03/06/23 11:04: POC Glucose 176 H 03/06/23 16:46: POC Glucose 236 H 03/06/23 18:20: Urine Creatinine 120.00, Urine Urea Nitrogen 691 03/06/23 20:45: POC Glucose 271 H 03/07/23 05:43: POC Glucose 178 H 03/07/23 06:45: WBC 12.1 H, RBC 2.62 L, Hgb 7.6 L, Hct 24.9 L, MCV 95.0 H, MCH 29.0, MCHC 30.5 L, RDW Std Deviation 49.1 H, RDW Coeff of Shen 14.1, Plt Count 173, MPV 9.9, Immature Gran % (Auto) 0.400, Neut % (Auto) 77.4 H, Lymph % (Auto) 7.5 L, [place] % (Auto) 12.2 H, Eos % (Auto) 2.3, Baso % (Auto) 0.2, Absolute Neuts (auto) 9.4 H, Absolute Lymphs (auto) 0.91, Nucleated RBC % 0, Sodium 138, Potassium 4.9, Chloride 113 H, Carbon Dioxide 21.0, Anion Gap 4 L, BUN 79 H, Creatinine 3.65 H, Estim Creat Clear Calc 15.76, Est GFR (MDRD) Af Amer 21 L, Est GFR (MDRD) Non-Af 17 L, BUN/Creatinine Ratio 21.6 H, Glucose 185 H, Calcium 8.0 L Radiography Diagnostic Testing: Radiology Impression Renal Ultrasound 03/06/23 08:08 IMPRESSION: Normal ultrasound of the kidneys and urinary bladder. Electronically Signed: Willis Jackson MD at 10:56 EST , Physical Exam Narrative Alert awake oriented no obvious distress s1s2 no murmurs lungs clear abdomen soft, non-tender no edema johnson + Assessment & Plan Assessment/Plan (1) CKD stage 4 due to type 1 diabetes mellitus: (2) MELL (acute kidney injury): PLAN: Baseline SCr is around 2.4 to 2.6 with proteinuria. Nonoliguric MELL on CKD stage 4 now with SCr up to 3.7 (hopefully this is peak)--> 3.6 today. Potassium and acid-base acceptable. renal US last month was ok. Renal dopplers in the past showed unilateral stenosis, saw vascular at [place] and was told that he is not a candidate. developed some retention here, johnson in. urine output is decent continue to hold lisinopril and lasix for now. Patient appears near euvolemic and volume status seems compensated. On room air. Per nursing staff oral intake has been poor, patient needs encouragement and reminders for fluid and solute intake. Blood pressures have been acceptable, he is on hydralazine with holding parameters to hold if systolic less than 110. Will call patient's with nephrology update patient follows with [facility] nephrology discussed nephrology plan with Dr. Young
[2023-03-07] MEDS: Calcium Carbonate 500 MG Tablet PO ×3 (08:58→16:35)
[2023-03-07] MEDS: APIXABAN 2.5 MG TABLET (WCH) PO ×2 (08:59→19:43)
[2023-03-07] MEDS: Acetaminophen 325 MG Tablet 650 MG PO (08:59)
[2023-03-07] MEDS: Metoprolol Tartrate 50 MG Tablet 75 MG PO (09:00)
[2023-03-07] MEDS: Isosorbide Mononitrate 30 MG Tablet PO (09:02)
[2023-03-07] MEDS: Escitalopram Oxalate 10 MG Tablet PO (09:03)
[2023-03-07] MEDS: Senna/Docusate Sodium 1 Tablet 2 TABLET PO ×2 (09:03→19:43)
[2023-03-07] MEDS: Cyanocobalamin 500 MCG Tablet 1000 MCG PO (09:04)
[2023-03-07] MEDS: Allopurinol 100 MG Tablet PO (09:05)
--- NOTE | 2023-03-07 10:40 | PN_ITS ---
Subjective Subjective Patient seen and examined. He was lying comfortably in bed. He had no active complaints. Review of systems otherwise negative. Creatinine has trended down slightly to 3.6 today. Hemoglobin has also dropped to 7.6 today. Objective Data Objective Data Vital Signs: Vital Signs Temp Pulse Resp BP Pulse Ox O2 Del Method 98.7 F 75 17 122/55 H 98 Room Air 03/07/23 08:46 03/07/23 09:00 03/07/23 08:47 03/07/23 09:00 03/07/23 09:15 03/07/23 08:47 Oxygen Delivery Method Room Air Weight: 203 lb 7.787 oz Body Mass Index (BMI) 28.3 Intake & Output: Intake and Output for Last 24 Hours 03/05/23 03/06/23 03/07/23 23:59 23:59 23:59 Intake Total 2600 / 3000 2958.58 / 3178.58 1340 / 1340 Output Total 500 / 800 600 / 600 Balance 2600 / 3000 2458.58 / 2378.58 740 / 740 Lab / Micro Data 03/07/23 06:45 03/07/23 06:45 Labs: Laboratory Results - last 24 hr 03/06/23 11:04: POC Glucose 176 H 03/06/23 16:46: POC Glucose 236 H 03/06/23 18:20: Urine Creatinine 120.00, Urine Urea Nitrogen 691 03/06/23 20:45: POC Glucose 271 H 03/07/23 05:43: POC Glucose 178 H 03/07/23 06:45: WBC 12.1 H, RBC 2.62 L, Hgb 7.6 L, Hct 24.9 L, MCV 95.0 H, MCH 29.0, MCHC 30.5 L, RDW Std Deviation 49.1 H, RDW Coeff of Shen 14.1, Plt Count 173, MPV 9.9, Immature Gran % (Auto) 0.400, Neut % (Auto) 77.4 H, Lymph % (Auto) 7.5 L, [place] % (Auto) 12.2 H, Eos % (Auto) 2.3, Baso % (Auto) 0.2, Absolute Neuts (auto) 9.4 H, Absolute Lymphs (auto) 0.91, Nucleated RBC % 0, Sodium 138, Potassium 4.9, Chloride 113 H, Carbon Dioxide 21.0, Anion Gap 4 L, BUN 79 H, Creatinine 3.65 H, Estim Creat Clear Calc 15.76, Est GFR (MDRD) Af Amer 21 L, Est GFR (MDRD) Non-Af 17 L, BUN/Creatinine Ratio 21.6 H, Glucose 185 H, Calcium 8.0 L Radiography Diagnostic Testing: Radiology Impression Renal Ultrasound 03/06/23 08:08 IMPRESSION: Normal ultrasound of the kidneys and urinary bladder. Electronically Signed: Willis Jackson MD at 10:56 EST , Physical Exam Const alert and no apparent distress Constitutional Narrative: confused due to dementia Orientation / Consciousness: confused HEENT normocephalic, head/scalp atraumatic, hearing grossly normal bilaterally, moist oral mucous membranes and oropharynx normal Eyes PERRL and EOMs intact bilaterally Eyes Narrative: Glasses. No icterus Neck no lymphadenopathy and supple Lymph Lymphatic: no lymphadenopathy noted and no lymphedema noted Resp normal respiratory effort, normal air movement, no retractions, no use of accessory muscles and clear to auscultation bilaterally Cardio regular rate, regular rhythm, S1 normal heart sound, S2 normal heart sound and no murmurs GI normal to inspection, nondistended, normoactive bowel sounds, soft to palpation, non-tender and non-distended Extremity normal to inspection and no clubbing, cyanosis or edema Extremity Narrative: Intact dressing over surgical site on right hip. General Extremity: no tenderness to palpation of joints or extremities Skin General Skin Exam: no breakdown and turgor normal Neuro CN's II-XII intact bilaterally, no focal motor deficits and no sensory deficits noted Sensorium / Orientation: awake and alert Motor Exam: general weakness Psych thought process normal, cooperative and affect normal Appearance: appropriate Assessment & Plan Assessment/Plan (1) Fracture of femoral neck, right: QUALIFIERS: Encounter type: initial encounter Fracture type: closed Qualified Code(s): S72.001A - Fracture of unspecified part of neck of right femur, initial encounter for closed fracture (2) Closed right hip fracture: PLAN: Plan #Closed right hip fracture due to mechanical fall * orthopedics on board. * on IV morphine, PO oxycodone and PO tylenol prn for pain * s/p right hip hemiarthroplasty. today is POD 2. * PT/OT On board. * fall precautions. * #Elevated troponin * initial troponin was elevated at 178, and trended down to 145. * does have CKD which could be the cause of elevated troponins * He had stress test in January 2023 which showed mildly abnormal stress test with inferior apical ischemia * cardiology on board * 2D echo showed EF of 60% with moderate concentric LVH and normal LV systolic function. Has stage 1 diastolic dysfunction. * #Ascending aortic aneurysm * high risk for repair. * to follow up with vascular surgery on outpatient basis * #Acute on chronic anemia * Hb 7.6 today. * It was around 9.6 yesterday. Has a 2 point drop in hemoglobin. * No clear evidence of bleeding. * Will recheck H&H and if it drops below 7 will transfuse. * #MELL on CKD IV * Creatinine has trended down slightly to 3.65 today. Was 3.73 yesterday. baseline Cr is 2.4 * Hydrate with IV fluids. Patient started on Ringer's lactate after surgery. * lisinopril held * nephrology on board; appreciate rec's * renal USG was unremarkable. * Huff catheter in situ due to concerns about urine retention. * * #Paroxysmal afib: on eliquis. eliquis resumed. #Hyperlipidemia: on statin #Gout: on allopurinol #Depression; on escitalopram #Hypertension: on hydralazine and lisinopril. Lisinpril held due to MELL. #Dementia: on namenda. 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 ISS. Accuchecks ACHS. DVT prophylaxis: on eliquis Disposition: He will benefit from placement. PT OT on board and case management on board to help facilitate placement. Charges/Coding Visit Charges Inpatient E&M: 59444 Subs Hosp L2
[2023-03-07 11:32] LABS: Hematocrit 24.5 % (40-54); Hemoglobin 7.6 g/dL (13.0-16.5)
[2023-03-07] MEDS: Memantine Hydrochloride 5 MG Tablet PO ×2 (11:34→19:43)
[2023-03-07 12:14] LABS: Bedside Glucose 307 mg/dL (74-106)
--- NOTE | 2023-03-07 15:44 | CASEMGMT ---
Samina has reviewed patient's therapy notes from Monday and today. Samina would need to see patient show improvement with therapy before TCU would consider patient. KAVEH called patient's Luci and let her know that TCU needs to see improvement with therapy before TCU would consider patient. Luci said she is not surprised as patient has not had any rest so he has been very tired. KAVEH also explained their second choice [facility] currently has not male beds and they are also in a Covid outbreak right now. KAVEH explained to Luci KAVEH will likely have an answer from TCU tomorrow. Should they not accept patient then KAVEH will make a referral to [facility] their 3rd choice. Luci thanked KAVEH for the update. Bailey Olson PATHOLOGY COLLECTOR RAPHAEL
[2023-03-07 16:48] LABS: Bedside Glucose 248 mg/dL (74-106)
[2023-03-07] MEDS: Metoprolol Tartrate 50 MG Tablet PO (19:43)
[2023-03-07] MEDS: Atorvastatin Calcium 80 MG Tablet PO (19:44)
[2023-03-07] MEDS: oxyCODONE 5 MG Tablet PO (19:47)
[2023-03-08] VITALS (12 sets, daily range): BP systolic 106–147; BP diastolic 45–71; PULSE 71–85; RESP 16–18; TEMP 36.4–37; O2SAT 95–100
[2023-03-08] MEDS: Insulin Lispro 100 UNIT/ML INSULN.PEN SC ×3 (05:50→16:17)
[2023-03-08] MEDS: hydrALAZINE 50 MG Tablet 100 MG PO ×2 (05:51→21:27)
[2023-03-08 06:10] LABS: Bedside Glucose 181 mg/dL (74-106)
[2023-03-08 07:46] LABS: Absolute Lymphocyte Count 0.89 X10^3/uL (0.83-4.51); Absolute Neutrophil Count 9.9 X10^3/uL (2.0-7.7); Basophil# 0.03 X10^3/uL; Basophil% 0.2 % (0-1); Eosinophil# 0.56 X10^3/uL; Eosinophils% 4.4 % (0-5); Hematocrit 27.1 % (40-54); Hemoglobin 8.2 g/dL (13.0-16.5); Lymphocyte # 0.89 X10^3/ul (0.83-4.51); Mean Corp Hgb Conc 30.3 g/dL (32-36); Mean Corpuscular Hgb 28.2 pg (27.0-32.0); Mean Corpuscular Volume 93.1 fL (80-94); Mean Platelet Vol. 10.2 fl (6.2-12.0); Monocyte# 1.26 X10^3/uL; Monocyte% 9.9 % (0-10); NRBC Flagged by Analyzer 0 % (0-5); Neutrophil # 9.93 X10^3/uL (2.7-7.7); Neutrophil % 77.6 % (47-70); Platelet Count 210 K/mm3 (150-450); RBC Distribution Width CV 14.2 % (11.6-14.6); RBC Distribution Width SD 48.4 fl (35.1-43.9); Red Blood Count 2.91 M/mm3 (4.6-6.2); White Blood Count 12.8 K/mm3 (4.4-11.0)
[2023-03-08 08:19] LABS: Anion Gap 5 (5-15); BUN 84 mg/dL (7-18); BUN/Creat Ratio 23.9 RATIO (10-20); Calcium,Total 8.5 mg/dL (8.5-10.1); Chloride 113 mmol/L (98-107); Creatinine, Serum 3.51 mg/dL (0.70-1.30); EST Glomerular Filtration Rate 18 mL/min (>60); Est Glom Filt Rate - Afr Amer 21 mL/min (>60); Estimated Creatinine Clearance 16.39 ml/min; Glucose 197 mg/dL (74-106); Sodium Level 138 mmol/L (136-145)
[2023-03-08] MEDS: Acetaminophen 325 MG Tablet 650 MG PO (08:53)
[2023-03-08] MEDS: Calcium Carbonate 500 MG Tablet PO ×3 (08:54→16:17)
[2023-03-08] MEDS: APIXABAN 2.5 MG TABLET (WCH) PO ×2 (08:54→21:27)
[2023-03-08] MEDS: oxyCODONE 5 MG Tablet PO (08:54)
[2023-03-08] MEDS: Escitalopram Oxalate 10 MG Tablet PO (08:55)
[2023-03-08] MEDS: Senna/Docusate Sodium 1 Tablet 2 TABLET PO ×2 (08:55→21:30)
[2023-03-08] MEDS: Cyanocobalamin 500 MCG Tablet 1000 MCG PO (08:56)
[2023-03-08] MEDS: Memantine Hydrochloride 5 MG Tablet PO ×2 (08:56→21:29)
[2023-03-08] MEDS: Allopurinol 100 MG Tablet PO (08:56)
--- NOTE | 2023-03-08 09:50 | PN.HOSP_ITS ---
Reason for Visit Reason for Visit: Diagnoses Type 1 diabetes mellitus with diabetic chronic kidney disease (03/03/23) Essential (primary) hypertension (03/03/23) Atherosclerotic heart disease of [place] coronary artery without angina pectoris (03/03/23) Paroxysmal atrial fibrillation (03/03/23) Aneurysm of the ascending aorta, without rupture (03/03/23) Acute kidney failure, unspecified (03/03/23) Chronic kidney disease, stage 4 (severe) (03/03/23) Other specified abnormal findings of blood chemistry (03/03/23) Fracture of unspecified part of neck of right femur, initial encounter for closed fracture (03/03/23) Encounter for preprocedural cardiovascular examination (03/03/23) Objective Data Objective Data Vital Signs: Vital Signs Temp Pulse Resp BP Pulse Ox O2 Del Method O2 Flow Rate 97.6 F L 75 16 142/56 H 95 Nasal Cannula 2 03/08/23 03:35 03/08/23 05:51 03/08/23 03:35 03/08/23 03:35 03/08/23 07:30 03/08/23 08:43 03/08/23 08:43 Oxygen Flow Rate (L/min) 2 Oxygen Delivery Method Nasal Cannula Weight: 203 lb 7.787 oz Body Mass Index (BMI) 28.3 Intake & Output: Intake and Output for Last 24 Hours 03/06/23 03/07/23 03/08/23 23:59 23:59 23:59 Intake Total 2958.58 / 3178.58 1440 / 1680 360 / 360 Output Total 500 / 800 1150 / 1450 900 / 900 Balance 2458.58 / 2378.58 290 / 230 -540 / -540 Lab / Micro Data 03/08/23 07:18 03/08/23 07:18 Labs: Laboratory Results - last 24 hr 03/07/23 11:21: Hgb 7.6 L, Hct 24.5 L 03/07/23 11:55: POC Glucose 307 H 03/07/23 16:28: POC Glucose 248 H 03/08/23 05:48: POC Glucose 181 H 03/08/23 07:18: WBC 12.8 H, RBC 2.91 L, Hgb 8.2 L, Hct 27.1 L, MCV 93.1, MCH 28.2, MCHC 30.3 L, RDW Std Deviation 48.4 H, RDW Coeff of Shen 14.2, Plt Count 210, MPV 10.2, Immature Gran % (Auto) 0.900, Neut % (Auto) 77.6 H, Lymph % (Auto) 7.0 L, [place] % (Auto) 9.9, Eos % (Auto) 4.4, Baso % (Auto) 0.2, Absolute Neuts (auto) 9.9 H, Absolute Lymphs (auto) 0.89, Nucleated RBC % 0, Sodium 138, Potassium 5.0, Chloride 113 H, Carbon Dioxide 20.0 L, Anion Gap 5, BUN 84 H, Creatinine 3.51 H, Estim Creat Clear Calc 16.39, Est GFR (MDRD) Af Amer 21 L, Est GFR (MDRD) Non-Af 18 L, BUN/Creatinine Ratio 23.9 H, Glucose 197 H, Calcium 8.5 Physical Exam Narrative Seen and examined. Patient admitted with right hip fracture. Patient has Huff catheter. Nephrology is consulted. Physical exam General: Alert, Oriented x3, Cooperative HEENT: Atraumatic, PERRLA, EOMI, Normocephalic Oral: No Gingival or Mucosal Lesions/ Ulcerations Neck: Supple, No JVD, Negative Carotid Bruits Lungs: Air entry diminished in bilateral lung bases. No crepitation/rhonchi Cardiovascular: Regular rate, Regular Rhythm, Normal S1, Normal S2, systolic murmurs Abdomen: Bowel Sounds Present, Soft, Non Tender, Non-Distended : Clear urine. No renal angle tenderness. No suprapubic tenderness. Extremities: No edema, Capillary Refill Less than 3 Seconds Skin: No rashes, No breakdown Musculoskeletal: Right hip surgical dressing is dry. No Tenderness to Palpation of Joints or Extremities Neurological: Cranial nerves II-XII grossly intact, DTR 2+/4. No acute focal neurological deficit. Psych/Mental Status: Normal Affect, Appropriate. Assessment & Plan Assessment/Plan (1) Fracture of femoral neck, right: QUALIFIERS: Encounter type: initial encounter Fracture type: closed Qualified Code(s): S72.001A - Fracture of unspecified part of neck of right femur, initial encounter for closed fracture (2) Closed right hip fracture: PLAN: Plan #Closed right hip fracture due to mechanical fall * orthopedics surgeon. * on IV morphine, PO oxycodone and PO tylenol prn for pain * s/p right hip hemiarthroplasty. On 03/05/2023. * PT/OT On board. * fall precautions. #Elevated troponin * initial troponin was elevated at 178, and trended down to 145 most likely nonischemic from CKD or increased myocardial demand from severe anemia. * does have CKD which could be the cause of elevated troponins * He had stress test in January 2023 which showed mildly abnormal stress test with inferior apical ischemia * cardiology on board * 2D echo showed EF of 60% with moderate concentric LVH and normal LV systolic function. Has stage 1 diastolic dysfunction. * Continue medical therapy with beta-wayne and nitrates. #Ascending aortic aneurysm * high risk for repair. * to follow up with vascular surgery on outpatient basis * #Acute on chronic anemia * Hb 7.6, repeat hemoglobin 8.2 * It was around 9.6 yesterday. Has a 2 point drop in hemoglobin. * No clear evidence of bleeding. #MELL on CKD IV * Creatinine has trended down slightly to 3.65 today. Was 3.73 yesterday. baseline Cr is 2.4 * Hydrate with IV fluids. Patient started on Ringer's lactate after surgery. * lisinopril held * nephrology on board; appreciate recommendation * renal USG was unremarkable. * Huff catheter in situ due to concerns about urine retention. 03/08: Repeat creatinine 3.5. BUN 84. #Paroxysmal afib: on eliquis. eliquis resumed. #Hyperlipidemia: on statin #Gout: on allopurinol #Depression; on escitalopram #Hypertension: on hydralazine and lisinopril. Lisinpril held due to MELL. #Dementia: on namenda. 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 ISS. Accuchecks ACHS. DVT prophylaxis: on eliquis Disposition: Pre-CERT pending. PT OT on board and case management on board to help facilitate placement. Charges/Coding Visit Charges Inpatient E&M: 86017 Subs Hosp L2
[2023-03-08] MEDS: Isosorbide Mononitrate 30 MG Tablet PO (10:21)
[2023-03-08 11:16] LABS: Bedside Glucose 261 mg/dL (74-106)
--- NOTE | 2023-03-08 11:24 | PN.RENAL_ITS ---
Subjective Subjective No new complaints today Objective Data Objective Data Vital Signs: Vital Signs Temp Pulse Resp BP Pulse Ox O2 Del Method O2 Flow Rate 98 F 83 18 111/57 L 98 Room Air 2 03/08/23 09:35 03/08/23 10:18 03/08/23 09:35 03/08/23 10:18 03/08/23 09:35 03/08/23 10:00 03/08/23 08:43 Oxygen Flow Rate (L/min) 2 Oxygen Delivery Method Room Air Weight: 92.3 kg Body Mass Index (BMI) 28.3 Intake & Output: Intake and Output for Last 24 Hours 03/06/23 03/07/23 03/08/23 23:59 23:59 23:59 Intake Total 2958.58 / 3178.58 1440 / 1680 360 / 360 Output Total 500 / 800 1150 / 1450 900 / 900 Balance 2458.58 / 2378.58 290 / 230 -540 / -540 Lab / Micro Data 03/08/23 07:18 03/08/23 07:18 Labs: Laboratory Results - last 24 hr 03/07/23 11:21: Hgb 7.6 L, Hct 24.5 L 03/07/23 11:55: POC Glucose 307 H 03/07/23 16:28: POC Glucose 248 H 03/08/23 05:48: POC Glucose 181 H 03/08/23 07:18: WBC 12.8 H, RBC 2.91 L, Hgb 8.2 L, Hct 27.1 L, MCV 93.1, MCH 28.2, MCHC 30.3 L, RDW Std Deviation 48.4 H, RDW Coeff of Shen 14.2, Plt Count 210, MPV 10.2, Immature Gran % (Auto) 0.900, Neut % (Auto) 77.6 H, Lymph % (Auto) 7.0 L, [place] % (Auto) 9.9, Eos % (Auto) 4.4, Baso % (Auto) 0.2, Absolute Neuts (auto) 9.9 H, Absolute Lymphs (auto) 0.89, Nucleated RBC % 0, Sodium 138, Potassium 5.0, Chloride 113 H, Carbon Dioxide 20.0 L, Anion Gap 5, BUN 84 H, Creatinine 3.51 H, Estim Creat Clear Calc 16.39, Est GFR (MDRD) Af Amer 21 L, Est GFR (MDRD) Non-Af 18 L, BUN/Creatinine Ratio 23.9 H, Glucose 197 H, Calcium 8.5 03/08/23 10:47: POC Glucose 261 H Physical Exam Narrative Alert awake oriented no obvious distress s1s2 no murmurs lungs clear abdomen soft, non-tender no edema johnson + Assessment & Plan Assessment/Plan (1) CKD stage 4 due to type 1 diabetes mellitus: (2) MELL (acute kidney injury): PLAN: Baseline SCr is around 2.4 to 2.6 with proteinuria. Nonoliguric MELL on CKD stage 4 now renal US ok. Renal dopplers in the past showed unilateral stenosis, saw vascular at [place] and was told that he is not a candidate. developed some reten tion here, johnson in. urine output is decent continue to hold lisinopril and lasix for now. patient follows with [facility] nephrology
--- NOTE | 2023-03-08 12:57 | CASEMGMT ---
TCU is unable to accept patient. KAVEH spoke with patient's Luci and let her know this information. Luci was still in agreement with [facility]. KAVEH asked Fifi to please send a referral to [facility]. Bailey Olson DELIVERY ASSISTANT RAPHAEL
--- NOTE | 2023-03-08 13:29 | CASEMGMT ---
Discharge Planning Referral sent to [facility] via [facility]. Fifi Ramirez, Discharge Planning Asst.
--- NOTE | 2023-03-08 14:23 | CASEMGMT ---
RN notified KAVEH that patient's Luci would like to talk with KAVEH. KAVEH spoke with Luci and she would also like referrals sent to [facility]. KAVEH told Luci KAVEH will call her at the end of KAVEH's day to let her know what if anything KAVEH has heard from facilities. KAVEH asked Fifi to send referrals. Bailey Olson MSW RAPHAEL
--- NOTE | 2023-03-08 14:33 | CASEMGMT ---
Discharge Planning Referrals sent to [facility] and [facility]. Fifi Ramirez, Discharge Planning Asst.
--- NOTE | 2023-03-08 16:27 | CASEMGMT ---
[facility] and [facility] have both accepted patient. SW called patient's Luci and let her know this information. Luci would like to wait and see what [facility] says before choosing. Bailey LIM
[2023-03-08 16:36] LABS: Bedside Glucose 256 mg/dL (74-106)
--- NOTE | 2023-03-08 18:42 | NURSING ---
Reviewed charting with Gonzales Gaines RN
[2023-03-08] MEDS: Atorvastatin Calcium 80 MG Tablet PO (21:28)
[2023-03-08] MEDS: Metoprolol Tartrate 50 MG Tablet PO (21:29)
[2023-03-08] MEDS: 0.9% Saline Lock 10 ML Syringe IV (21:30)
[2023-03-09] VITALS (14 sets, daily range): BP systolic 107–136; BP diastolic 52–76; PULSE 72–99; RESP 18–24; TEMP 36.4–36.6; O2SAT 95–99
[2023-03-09 00:57] LABS: Bedside Glucose 207 mg/dL (74-106)
[2023-03-09 05:53] LABS: Absolute Lymphocyte Count 0.82 X10^3/uL (0.83-4.51); Basophil# 0.04 X10^3/uL; Basophil% 0.4 % (0-1); Eosinophil# 0.54 X10^3/uL; Eosinophils% 5.2 % (0-5); Hematocrit 24.7 % (40-54); Hemoglobin 7.7 g/dL (13.0-16.5); Lymphocyte # 0.82 X10^3/ul (0.83-4.51); Lymphocyte % 7.8 % (19-41); Mean Corp Hgb Conc 31.2 g/dL (32-36); Mean Corpuscular Hgb 28.8 pg (27.0-32.0); Mean Corpuscular Volume 92.5 fL (80-94); Mean Platelet Vol. 10.3 fl (6.2-12.0); Monocyte# 0.97 X10^3/uL; Monocyte% 9.3 % (0-10); NRBC Flagged by Analyzer 0 % (0-5); Neutrophil # 7.98 X10^3/uL (2.7-7.7); Neutrophil % 76.3 % (47-70); Platelet Count 233 K/mm3 (150-450); RBC Distribution Width CV 14.1 % (11.6-14.6); RBC Distribution Width SD 47.4 fl (35.1-43.9); Red Blood Count 2.67 M/mm3 (4.6-6.2); White Blood Count 10.5 K/mm3 (4.4-11.0)
[2023-03-09] MEDS: hydrALAZINE 50 MG Tablet 100 MG PO ×3 (06:22→20:20)
[2023-03-09] MEDS: Acetaminophen 325 MG Tablet 650 MG PO ×2 (06:22→14:22)
[2023-03-09] MEDS: Insulin Lispro 100 UNIT/ML INSULN.PEN SC ×3 (06:23→16:49)
[2023-03-09 06:30] LABS: Anion Gap 5 (5-15); BUN 84 mg/dL (7-18); BUN/Creat Ratio 24.3 RATIO (10-20); Calcium,Total 8.3 mg/dL (8.5-10.1); Chloride 111 mmol/L (98-107); Creatinine, Serum 3.46 mg/dL (0.70-1.30); EST Glomerular Filtration Rate 18 mL/min (>60); Est Glom Filt Rate - Afr Amer 22 mL/min (>60); Estimated Creatinine Clearance 16.62 ml/min; Glucose 200 mg/dL (74-106); Potassium 5.1 mmol/L (3.5-5.1); Sodium Level 136 mmol/L (136-145)
[2023-03-09] MEDS: Calcium Carbonate 500 MG Tablet PO ×3 (08:24→16:49)
--- NOTE | 2023-03-09 10:48 | RAD_ITS ---
STUDY: X-RAY CHEST REASON FOR EXAM: Male, 87 years old. SOB TECHNIQUE: Single AP portable view of the chest. COMPARISON: March 03, 2023 chest x-ray FINDINGS: The lungs are underexpanded. There is minimal left lower lobe atelectasis and/or scarring. There is no demonstrated pleural abnormality. There is mild cardiac enlargement. Normal mediastinum and saravanan. Normal visualized pulmonary arteries. There is atherosclerotic calcification of the aortic arch with tortuosity. There are diffuse degenerative changes of the visualized thoracic spine. Normal visualized ribs, clavicles, and shoulders. There is no demonstrated abnormality of the visualized soft tissue structures of the upper abdomen. RAD/Chest 1 View (Portable) IMPRESSION: Stable chest. Minimal left lower lobe atelectasis and/or scarring. No demonstrated acute cardiopulmonary process. Electronically Signed: Marichuy Lua MD at 17:51 EST ,
--- NOTE | 2023-03-09 11:03 | CASEMGMT ---
Discharge Planning Patient has been accepted by [facility]. SW updated. Fifi Ramirez, Discharge Planning Asst.
[2023-03-09] MEDS: APIXABAN 2.5 MG TABLET (WCH) PO ×2 (11:18→20:20)
[2023-03-09] MEDS: Allopurinol 100 MG Tablet PO (11:18)
[2023-03-09] MEDS: Memantine Hydrochloride 5 MG Tablet PO ×2 (11:19→20:21)
[2023-03-09] MEDS: Cyanocobalamin 500 MCG Tablet 1000 MCG PO (11:19)
[2023-03-09] MEDS: Senna/Docusate Sodium 1 Tablet 2 TABLET PO ×2 (11:19→20:21)
[2023-03-09] MEDS: Escitalopram Oxalate 10 MG Tablet PO (11:20)
[2023-03-09 11:22] LABS: Bedside Glucose 172 mg/dL (74-106)
--- NOTE | 2023-03-09 11:27 | CASEMGMT ---
Addendum entered by Bailey Olson 03/09/23 11:41: Luci called back and she would like patient to go to [facility]. KAVEH asked Fifi to notify facilities and ask [facility] to start the pre-cert. Bailey LIM Original Note: KAVEH called patient's Luci and let her know all 3 facilities have accepted patient. Luci was going to call her son and talk with him and then call KAVEH back. Bailey LIM
[2023-03-09 11:48] LABS: Bedside Glucose 249 mg/dL (74-106)
--- NOTE | 2023-03-09 11:55 | CASEMGMT ---
[facility]. [facility] updated. Fifi Ramirez, Discharge Planning Asst.
[2023-03-09 11:57] LABS: Platelet Count 232 K/mm3 (150-450); RET-HE 27.3 pg (30-35); Reticulocyte Count 2.24 % (0.5-1.5)
[2023-03-09 12:06] LABS: Ferritin 1624 ng/mL (26-388); Iron 17 ug/dL (65-175); Iron Binding Capacity,Total 120 ug/dL (250-450); PERCENT IRON SATURATION 14.2 % (15.0-55.0)
[2023-03-09] MEDS: Pantoprazole Sodium 40 MG Tablet PO (12:53)
--- NOTE | 2023-03-09 13:24 | PCM.PN.REN ---
Subjective Subjective No new complaints Objective Data Objective Data Vital Signs: Vital Signs Temp Pulse Resp BP Pulse Ox O2 Del Method O2 Flow Rate 97.8 F 78 20 H 107/52 L 97 Room Air 2 03/09/23 08:12 03/09/23 08:23 03/09/23 08:12 03/09/23 08:23 03/09/23 10:37 03/09/23 08:17 03/08/23 08:43 Oxygen Flow Rate (L/min) 2 Oxygen Delivery Method Room Air Weight: 92.3 kg Body Mass Index (BMI) 28.3 Intake & Output: Intake and Output for Last 24 Hours 03/07/23 03/08/23 03/09/23 23:59 23:59 23:59 Intake Total 1440 / 1680 610 / 610 120 / 120 Output Total 1150 / 1450 1900 / 1900 400 / 400 Balance 290 / 230 -1290 / -1290 -280 / -280 Lab / Micro Data 03/09/23 05:00 03/09/23 05:00 Labs: Laboratory Results - last 24 hr 03/08/23 16:16: POC Glucose 256 H 03/08/23 21:25: POC Glucose 207 H 03/09/23 05:00: WBC 10.5, RBC 2.67 L, Hgb 7.7 L, Hct 24.7 L, MCV 92.5, MCH 28.8, MCHC 31.2 L, RDW Std Deviation 47.4 H, RDW Coeff of Shen 14.1, Plt Count 233, MPV 10.3, Immature Gran % (Auto) 1.000 H, Neut % (Auto) 76.3 H, Lymph % (Auto) 7.8 L, [place] % (Auto) 9.3, Eos % (Auto) 5.2 H, Baso % (Auto) 0.4, Absolute Neuts (auto) 8.0 H, Absolute Lymphs (auto) 0.82 L, Nucleated RBC % 0, Retic Count 2.24 H, Immature Retic Fraction 24.20 H, Retic Hgb Equivalent 27.3 L, Sodium 136, Potassium 5.1, Chloride 111 H, Carbon Dioxide 20.0 L, Anion Gap 5, BUN 84 H, Creatinine 3.46 H, Estim Creat Clear Calc 16.62, Est GFR (MDRD) Af Amer 22 L, Est GFR (MDRD) Non-Af 18 L, BUN/Creatinine Ratio 24.3 H, Glucose 200 H, Calcium 8.3 L, Iron 17 L, TIBC 120 L, Iron Saturation 14.2 L, Ferritin 1624 H 03/09/23 06:18: POC Glucose 172 H 03/09/23 11:16: POC Glucose 249 H Physical Exam Narrative Alert awake oriented no obvious distress s1s2 no murmurs lungs clear abdomen soft, non-tender no edema johnson + Assessment & Plan Assessment/Plan (1) CKD stage 4 due to type 1 diabetes mellitus: (2) MELL (acute kidney injury): PLAN: Baseline SCr is around 2.4 to 2.6 with proteinuria. Nonoliguric MELL on CKD stage 4 now renal US ok. Renal dopplers in the past showed unilateral stenosis, saw vascular at [facility] and was told that he is not a candidate. developed some retention here, johnson in. urine output is decent continue to hold lisinopril and lasix for now. patient follows with [facility] nephrology Discussed with family at bedside. Possible discharge to senior care today. They will follow-up with [facility] nephrology after discharge. Continue to hold lisinopril and Lasix at the time of discharge.
[2023-03-09] MEDS: oxyCODONE 5 MG Tablet PO ×2 (14:21→20:15)
[2023-03-09 17:24] LABS: Bedside Glucose 268 mg/dL (74-106)
--- NOTE | 2023-03-09 17:29 | PN.HOSP_ITS ---
Reason for Visit Reason for Visit: Diagnoses Type 1 diabetes mellitus with diabetic chronic kidney disease (03/03/23) Essential (primary) hypertension (03/03/23) Atherosclerotic heart disease of [place] coronary artery without angina pectoris (03/03/23) Paroxysmal atrial fibrillation (03/03/23) Aneurysm of the ascending aorta, without rupture (03/03/23) Acute kidney failure, unspecified (03/03/23) Chronic kidney disease, stage 4 (severe) (03/03/23) Other specified abnormal findings of blood chemistry (03/03/23) Fracture of unspecified part of neck of right femur, initial encounter for closed fracture (03/03/23) Encounter for preprocedural cardiovascular examination (03/03/23) Objective Data Objective Data Vital Signs: Vital Signs Temp Pulse Resp BP Pulse Ox O2 Del Method O2 Flow Rate 97.6 F L 88 18 134/72 H 98 Room Air 2 03/09/23 14:12 03/09/23 14:21 03/09/23 14:12 03/09/23 14:21 03/09/23 14:12 03/09/23 15:08 03/08/23 08:43 Oxygen Flow Rate (L/min) 2 Oxygen Delivery Method Room Air Weight: 203 lb 7.787 oz Body Mass Index (BMI) 28.3 Intake & Output: Intake and Output for Last 24 Hours 03/07/23 03/08/23 03/09/23 23:59 23:59 23:59 Intake Total 1440 / 1680 610 / 610 120 / 120 Output Total 1150 / 1450 1900 / 1900 400 / 400 Balance 290 / 230 -1290 / -1290 -280 / -280 Lab / Micro Data 03/09/23 05:00 03/09/23 05:00 Labs: Laboratory Results - last 24 hr 03/08/23 21:25: POC Glucose 207 H 03/09/23 05:00: WBC 10.5, RBC 2.67 L, Hgb 7.7 L, Hct 24.7 L, MCV 92.5, MCH 28.8, MCHC 31.2 L, RDW Std Deviation 47.4 H, RDW Coeff of Shen 14.1, Plt Count 233, MPV 10.3, Immature Gran % (Auto) 1.000 H, Neut % (Auto) 76.3 H, Lymph % (Auto) 7.8 L , [place] % (Auto) 9.3, Eos % (Auto) 5.2 H, Baso % (Auto) 0.4, Absolute Neuts (auto) 8.0 H, Absolute Lymphs (auto) 0.82 L, Nucleated RBC % 0, Retic Count 2.24 H, Immature Retic Fraction 24.20 H, Retic Hgb Equivalent 27.3 L, Sodium 136, Potassium 5.1, Chloride 111 H, Carbon Dioxide 20.0 L, Anion Gap 5, BUN 84 H, Creatinine 3.46 H, Estim Creat Clear Calc 16.62, Est GFR (MDRD) Af Amer 22 L, Est GFR (MDRD) Non-Af 18 L, BUN/Creatinine Ratio 24.3 H, Glucose 200 H, Calcium 8.3 L, Iron 17 L, TIBC 120 L, Iron Saturation 14.2 L, Ferritin 1624 H 03/09/23 06:18: POC Glucose 172 H 03/09/23 11:16: POC Glucose 249 H 03/09/23 16:47: POC Glucose 268 H Physical Exam Narrative Seen and examined. Patient admitted with right hip fracture. Patient has Huff catheter. Nephrology is consulted. Physical exam General: Confused and disoriented. Disoriented to time place and person. HEENT: Atraumatic, PERRLA, EOMI, Normocephalic Oral: No Gingival or Mucosal Lesions/ Ulcerations Neck: Supple, No JVD, Negative Carotid Bruits Lungs: Mild short of breath. Air entry diminished in bilateral lung bases. No crepitation/rhonchi Cardiovascular: Regular rate, Regular Rhythm, Normal S1, Normal S2, systolic murmurs Abdomen: Bowel Sounds Present, Soft, Non Tender, Non-Distended : Clear urine. No renal angle tenderness. No suprapubic tenderness. Extremities: No edema, Capillary Refill Less than 3 Seconds Skin: No rashes, No breakdown Musculoskeletal: Right hip surgical dressing is dry. No Tenderness to Palpation of Joints or Extremities Neurological: Cranial nerves II-XII grossly intact, DTR 2+/4. No acute focal neurological deficit. Psych/Mental Status: Normal Affect, Appropriate. Assessment & Plan Assessment/Plan (1) Fracture of femoral neck, right: QUALIFIERS: Encounter type: initial encounter Fracture type: closed Qualified Code(s): S72.001A - Fracture of unspecified part of neck of right femur, initial encounter for closed fracture (2) Closed right hip fracture: PLAN: Plan #Closed right hip fracture due to mechanical fall * orthopedics surgeon. * on IV morphine, PO oxycodone and PO tylenol prn for pain * s/p right hip hemiarthroplasty. On 03/05/2023. * PT/OT On board. * fall precautions. 03/12: Patient to clinical short of breath but chest x-ray portable tender does not show acute change although little underpenetration. Patient is confused and disoriented probably acute metabolic encephalopathy. No fever. Blood pressure and heart rate in normal range. #Elevated troponin * initial troponin was elevated at 178, and trended down to 145 most likely nonischemic from CKD or increased myocardial demand from severe anemia. * does have CKD which could be the cause of elevated troponins * He had stress test in January 2023 which showed mildly abnormal stress test w ith inferior apical ischemia * cardiology on board * 2D echo showed EF of 60% with moderate concentric LVH and normal LV systolic function. Has stage 1 diastolic dysfunction. * Continue medical therapy with beta-wayne and nitrates. #Ascending aortic aneurysm * high risk for repair. * to follow up with vascular surgery on outpatient basis * #Acute on chronic anemia * Hb 7.6, repeat hemoglobin 8.2 * It was around 9.6 yesterday. Has a 2 point drop in hemoglobin. * No clear evidence of bleeding. 03/09: Hemoglobin 7.7. #MELL on CKD IV * Creatinine has trended down slightly to 3.65 today. Was 3.73 yesterday. baseline Cr is 2.4 * Hydrate with IV fluids. Patient started on Ringer's lactate after surgery. * lisinopril held * nephrology on board; appreciate recommendation * renal USG was unremarkable. * Huff catheter in situ due to concerns about urine retention. 03/08: Repeat creatinine 3.5. BUN 84. 03/09: Creatinine increased to 3.46. Bicarb 20. Anion gap 5. Power Generation Technician managing it. Patient not candidate for dialysis. Discussed with the patient sedated. #Paroxysmal afib: on eliquis. eliquis resumed. #Hyperlipidemia: on statin #Gout: on allopurinol #Depression; on escitalopram #Hypertension: on hydralazine and lisinopril. Lisinpril held due to MELL. #Dementia: on namenda. 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 ISS. Accuchecks ACHS. DVT prophylaxis: on eliquis Disposition: Pre-CERT pending. PT OT on board and case management on board to help facilitate placement. Charges/Coding Visit Charges Inpatient E&M: 83585 Subs Hosp L2
[2023-03-09] MEDS: 0.9% Saline Lock 10 ML Syringe IV ×3 (18:54→20:34)
[2023-03-09] MEDS: Metoprolol Tartrate 50 MG Tablet PO (20:19)
[2023-03-09] MEDS: Atorvastatin Calcium 80 MG Tablet PO (20:20)
[2023-03-09] MEDS: Ondansetron 4 MG/2 ML Vial IV (20:31)
[2023-03-09] MEDS: Albuterol 2.5 MG/3 ML VIAL.NEB. INHALATION (21:05)
[2023-03-09 23:10] LABS: Bedside Glucose 300 mg/dL (74-106)
[2023-03-10 02:32] VITALS: BP 123/88; PULSE 84; RESP 20; TEMP 36.1; O2SAT 99
[2023-03-10 06:03] VITALS: BP 123/66; PULSE 85; RESP 18; TEMP 36.3; O2SAT 97
[2023-03-10 06:06] VITALS: BP 123/66; PULSE 85
[2023-03-10] MEDS: hydrALAZINE 50 MG Tablet 100 MG PO (06:06)
[2023-03-10] MEDS: Insulin Lispro 100 UNIT/ML INSULN.PEN SC ×2 (06:07→11:02)
[2023-03-10 06:31] LABS: Absolute Lymphocyte Count 0.92 X10^3/uL (0.83-4.51); Absolute Neutrophil Count 11.4 X10^3/uL (2.0-7.7); Basophil# 0.04 X10^3/uL; Basophil% 0.3 % (0-1); Eosinophil# 0.25 X10^3/uL; Eosinophils% 1.8 % (0-5); Hemoglobin 8.2 g/dL (13.0-16.5); Lymphocyte # 0.92 X10^3/ul (0.83-4.51); Lymphocyte % 6.6 % (19-41); Mean Corp Hgb Conc 31.5 g/dL (32-36); Mean Corpuscular Hgb 28.7 pg (27.0-32.0); Mean Corpuscular Volume 90.9 fL (80-94); Mean Platelet Vol. 9.8 fl (6.2-12.0); Monocyte# 1.17 X10^3/uL; Monocyte% 8.4 % (0-10); NRBC Flagged by Analyzer 0 % (0-5); Neutrophil # 11.38 X10^3/uL (2.7-7.7); Neutrophil % 81.8 % (47-70); Platelet Count 284 K/mm3 (150-450); RBC Distribution Width CV 14.1 % (11.6-14.6); RBC Distribution Width SD 47.5 fl (35.1-43.9); Red Blood Count 2.86 M/mm3 (4.6-6.2); White Blood Count 13.9 K/mm3 (4.4-11.0)
[2023-03-10 06:35] LABS: Bedside Glucose 244 mg/dL (74-106)
[2023-03-10 07:02] LABS: Anion Gap 7 (5-15); BUN 87 mg/dL (7-18); BUN/Creat Ratio 26.5 RATIO (10-20); Calcium,Total 8.1 mg/dL (8.5-10.1); Chloride 109 mmol/L (98-107); Creatinine, Serum 3.28 mg/dL (0.70-1.30); EST Glomerular Filtration Rate 19 mL/min (>60); Est Glom Filt Rate - Afr Amer 23 mL/min (>60); Estimated Creatinine Clearance 17.54 ml/min; Glucose 258 mg/dL (74-106); Potassium 4.9 mmol/L (3.5-5.1); Sodium Level 136 mmol/L (136-145)
[2023-03-10 08:52] VITALS: BP 112/62; PULSE 81; RESP 20; TEMP 36.3; O2SAT 96
[2023-03-10 08:58] VITALS: BP 112/62; PULSE 81
[2023-03-10] MEDS: Metoprolol Tartrate 50 MG Tablet 75 MG PO (08:58)
[2023-03-10] MEDS: Calcium Carbonate 500 MG Tablet PO ×2 (08:58→11:02)
[2023-03-10] MEDS: Pantoprazole Sodium 40 MG Tablet PO (08:59)
[2023-03-10] MEDS: Memantine Hydrochloride 5 MG Tablet PO (08:59)
[2023-03-10] MEDS: Isosorbide Mononitrate 30 MG Tablet PO (08:59)
[2023-03-10] MEDS: Escitalopram Oxalate 10 MG Tablet PO (08:59)
[2023-03-10] MEDS: APIXABAN 2.5 MG TABLET (WCH) PO (08:59)
[2023-03-10] MEDS: Senna/Docusate Sodium 1 Tablet 2 TABLET PO (08:59)
[2023-03-10] MEDS: Cyanocobalamin 500 MCG Tablet 1000 MCG PO (09:00)
[2023-03-10] MEDS: Allopurinol 100 MG Tablet PO (09:00)
--- NOTE | 2023-03-10 09:08 | CASEMGMT ---
Addendum entered by Bailey Olson 03/10/23 09:15: SW notified physician and left a voice mail for patient's . Bailey LIM Original Note: Patient was approved for [facility]. KAVEH will notify patient's and physician. Bailey LIM
--- NOTE | 2023-03-10 09:27 | TREXTCAR_ITS ---
Diet Diet Order/Speech Therapy: 03/09/23 15:08 Diet: Consistent Carb - Calorie Controlled Food consistency:: Pureed Liquid Consistency:: Regular/Thin Dietary Modifications:: Sodium Restricted Is pt able to select menu?: No Diet Comments: TOTAL FEED, deliver tray to desk, alternate bites/sips, check for pocketing How many daily calories?: 2000 calorie Routine Orders/Code Status Suppository Type: Dulcolax 10mg Suppository Frequency: Daily PRN Wound(s) buttocks: Wound Type: Pressure Injury R HIP: Wound Type: Surgical Incision right buttocks: Wound Type: Pressure Injury Therapies Weight Bearing: Weight bearing as tolerated Extremity Affected:: Right Lower Physical Therapy: Eval and Treat Occupational Therapy: Eval and Treat Speech Therapy: Eval and Treat Problem/Diagnosis (1) Fracture of femoral neck, right: Status: Acute Code(s): S72.001A - Fracture of unspecified part of neck of right femur, initial encounter for closed fracture (2) Closed right hip fracture: Status: Acute Code(s): S72.001A - Fracture of unspecified part of neck of right femur, initial encounter for closed fracture Plan #Closed right hip fracture due to mechanical fall * orthopedics surgeon. * on IV morphine, PO oxycodone and PO tylenol prn for pain * s/p right hip hemiarthroplasty. On 03/05/2023. * PT/OT On board. * fall precautions. 03/12: Patient to clinical short of breath but chest x-ray portable tender does not show acute change although little underpenetration. Patient is confused and disoriented probably acute metabolic encephalopathy. No fever. Blood pressure and heart rate in normal range. #Elevated troponin * initial troponin was elevated at 178, and trended down to 145 most likely nonischemic from CKD or increased myocardial demand from severe anemia. * does have CKD which could be the cause of elevated troponins * He had stress test in January 2023 which showed mildly abnormal stress test with inferior apical ischemia * cardiology on board * 2D echo showed EF of 60% with moderate concentric LVH and normal LV systolic function. Has stage 1 diastolic dysfunction. * Continue medical therapy with beta-wayne and nitrates. #Ascending aortic aneurysm * high risk for repair. * to follow up with vascular surgery on outpatient basis * #Acute on chronic anemia * Hb 7.6, repeat hemoglobin 8.2 * It was around 9.6 yesterday. Has a 2 point drop in hemoglobin. * No clear evidence of bleeding. 03/09: Hemoglobin 7.7. #MELL on CKD IV * Creatinine has trended down slightly to 3.65 today. Was 3.73 yesterday. baseline Cr is 2.4 * Hydrate with IV fluids. Patient started on Ringer's lactate after surgery. * lisinopril held * nephrology on board; appreciate recommendation * renal USG was unremarkable. * Huff catheter in situ due to concerns about urine retention. 03/08: Repeat creatinine 3.5. BUN 84. 03/09: Creatinine increased to 3.46. Bicarb 20. Anion gap 5. Hot Stick Worker managing it. Patient not candidate for dialysis. Discussed with the patient sedated. #Paroxysmal afib: on eliquis. eliquis resumed. #Hyperlipidemia: on statin #Gout: on allopurinol #Depression; on escitalopram #Hypertension: on hydralazine and lisinopril. Lisinpril held due to MELL. #Dementia: on namenda. 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 ISS. Accuchecks ACHS. DVT prophylaxis: on eliquis Disposition: Pre-CERT pending. PT OT on board and case management on board to help facilitate placement. Allergies/Procedures Done in Hospital Allergies levofloxacin [From Levaquin] Allergy (Verified 03/03/23 16:25) Other LOC CHANGES acarbose Adverse Reaction (Verified 03/03/23 16:25) Nausea metformin Adverse Reaction (Verified 03/03/23 16:25) Other KIDNEYS Type of Care/Length of Stay Estimated LOS: Convalescent Care Less Than 30 days Type of Care Needed: Skilled Rehab Potential: Good Prognosis: Good Additional Orders/Day of Discharge Day of Discharge: 03/10/23 Dietary and Speech Recommendations Dietitian Recommendations/Changes: Will change diet to 2000CCD, sodium restricted diet to manage medical conditions Discharge Plan Admission Admit Date/Time: 03/03/23 22:25 Primary Reason for Your Visit: Right hip fracture. MELL, urine retention. Attending Provider: Cali Hernandez Primary Care Provider: Chavo Herman Consulting Providers: Olvin Carlos; Gustabo Slaughter; Payam Blanc; Hieu Love; Giana Young Instructions Additional Instructions / Restrictions: Follow-up with turf and grounds supervisor as an outpatient in 1 week. Patient follows [facility] turf and grounds supervisor, NICHOL Weber Discharge Orders/Prescriptions Prescriptions: New acetaminophen 325 mg Tablet 650 mg PO Q6H PRN PRN (Reason: Pain 1-10 Or Fever >100.7) Qty: 0 0RF calcium carbonate 200 mg calcium (500 mg) Tablet,Chewable 500 mg PO TIDCM Qty: 0 0RF insulin lispro [Humalog KwikPen Insulin] 100 unit/mL Insulin Pen See Protocol subcut TIDAC Qty: 0 0RF Protocol: 4. Sliding Scale Insulin High-Med Dosing Condition: 150-199 mg/dl = 2 units Condition: 200-259 mg/dl = 4 units Condition: 260-324 mg/dl = 6 units Condition: 325-374 mg/dl = 8 units Condition: 375-409 mg/dl = 10 units Condition: 410-449 mg/dl = 11 units Condition: Greater than 449 call physician Protocol Text: - Use for Total Daily Dose of Insulin 56-80 units - Patient who are insulin resistant or septic HIGH MEDIUM DOSING ALGORITHM sennosides-docusate sodium [Stool Softener-Stimulant Laxat] 8.6-50 mg Tablet 2 tab PO BID Qty: 0 0RF pantoprazole 40 mg Tablet,Delayed Release (Dr/Ec) 40 mg PO DAILY Qty: 30 0RF oxycodone 5 mg Tablet 2.5 - 5 mg PO Q4H PRN PRN (Reason: Pain Score 4-10) 3 Days Qty: 7 0RF Rx Instructions: 2.5 mg for moderate pain 5 mg for severe pain respectively Continued cholecalciferol (vitamin D3) 1,250 mcg (50,000 unit) tablet 1,250 mcg PO QWEEK hydralazine 50 mg tablet 100 mg PO TID Patient Comments: TAKE 2 TABLETS BY MOUTH THREE TIMES DAILY atorvastatin 80 MG tablet 80 mg PO DAILY escitalopram oxalate 10 mg tablet 10 mg PO DAILY memantine 5 mg tablet 5 mg PO BID Trulicity 1.5 mg/0.5 mL pen injector 3 mg SUBCUT QWEEK Hold Instructions: Resume on 03/23/21. Hold while at longterm. Rx Instructions: on mon metoprolol tartrate 50 mg tablet 75 mg PO BREAKFAST cyanocobalamin (vitamin B-12) 1,000 mcg Tablet 1,000 mcg PO DAILY allopurinol 100 mg tablet 100 mg PO DAILY metoprolol tartrate 50 mg tablet 50 mg PO QHS Eliquis 2.5 mg tablet 2.5 mg PO BID 30 Days Qty: 60 0RF isosorbide mononitrate 30 mg tablet extended release 24 hr 30 mg PO DAILY Qty: 30 11RF Held aspirin [Adult Low Dose Aspirin] 81 mg tablet,delayed release (DR/EC) 81 mg PO DAILY Hold Instructions: Hold baby aspirin while patient is on Eliquis. lisinopril 20 MG tablet 20 mg PO DAILY Hold Instructions: Hold for 1 week for MELL and follow with PCP with BMP. Blood pressure is in normal range. furosemide 40 mg tablet 40 mg PO Q OTHER DAY Hold Instructions: Hold for 1 week follow with PCP with repeat BMP. Referrals / Follow Up: Olvin Carlos MD [Med Staff - Active Staff] - Within 1 Month Gustabo Slaughter DO [Med Staff - Active Staff] - Within 2 Weeks Chavo Herman MD [Primary Care Provider] - Disposition Disposition (needs filled in before D/C Order can be placed): Custodial Facility (1) Fracture of femoral neck, right Qualifiers: Encounter type: initial encounter Fracture type: closed Qualified Code(s): S72.001A - Fracture of unspecified part of neck of right femur, initial encounter for closed fracture
--- NOTE | 2023-03-10 11:02 | PN.RENAL_ITS ---
Subjective Subjective Alert to name. No overnight events. Objective Data Objective Data Vital Signs: Vital Signs Temp Pulse Resp BP Pulse Ox O2 Del Method O2 Flow Rate 97.4 F L 81 20 H 112/62 96 Room Air 2 03/10/23 08:52 03/10/23 08:58 03/10/23 08:52 03/10/23 08:58 03/10/23 08:52 03/10/23 09:33 03/08/23 08:43 Oxygen Flow Rate (L/min) 2 Oxygen Delivery Method Room Air Weight: 92.3 kg Body Mass Index (BMI) 28.3 Intake & Output: Intake and Output for Last 24 Hours 03/08/23 03/09/23 03/10/23 23:59 23:59 23:59 Intake Total 610 / 610 120 / 120 Output Total 1900 / 1900 1500 / 1500 300 / 300 Balance -1290 / -1290 -1380 / -1380 -300 / -300 Lab / Micro Data 03/10/23 05:55 03/10/23 05:55 Labs: Laboratory Results - last 24 hr 03/09/23 05:00: Retic Count 2.24 H, Immature Retic Fraction 24.20 H, Retic Hgb Equivalent 27.3 L, Iron 17 L, TIBC 120 L, Iron Saturation 14.2 L, Ferritin 1624 H 03/09/23 06:18: POC Glucose 172 H 03/09/23 11:16: POC Glucose 249 H 03/09/23 16:47: POC Glucose 268 H 03/09/23 20:18: POC Glucose 300 H 03/10/23 05:55: WBC 13.9 H, RBC 2.86 L, Hgb 8.2 L, Hct 26.0 L, MCV 90.9, MCH 28.7, MCHC 31.5 L, RDW Std Deviation 47.5 H, RDW Coeff of Shen 14.1, Plt Count 284, MPV 9.8, Immature Gran % (Auto) 1.100 H, Neut % (Auto) 81.8 H, Lymph % (Auto) 6.6 L, [place] % (Auto) 8.4, Eos % (Auto) 1.8, Baso % (Auto) 0.3, Absolute Neuts (auto) 11.4 H, Absolute Lymphs (auto) 0.92, Nucleated RBC % 0, Sodium 136, Potassium 4.9, Chloride 109 H, Carbon Dioxide 20.0 L, Anion Gap 7, BUN 87 H, Creatinine 3.28 H, Estim Creat Clear Calc 17.54, Est GFR (MDRD) Af Amer 23 L, Est GFR (MDRD) Non-Af 19 L, BUN/Creatinine Ratio 26.5 H, Glucose 258 H, Calcium 8.1 L 03/10/23 06:06: POC Glucose 244 H Radiography Diagnostic Testing: Radiology Impression Chest X-Ray 03/09/23 10:48 IMPRESSION: Stable chest. Minimal left lower lobe atelectasis and/or scarring. No demonstrated acute cardiopulmonary process. Electronically Signed: Marichuy Lua MD at 17:51 EST , Physical Exam Narrative Alert awake oriented no obvious distress s1s2 no murmurs lungs clear abdomen soft, non-tender no edema johnson + Assessment & Plan Assessment/Plan (1) CKD stage 4 due to type 1 diabetes mellitus: (2) MELL (acute kidney injury): PLAN: Baseline SCr is around 2.4 to 2.6 with proteinuria. Nonoliguric MELL on CKD stage 4 now renal US ok. Renal dopplers in the past showed unilateral stenosis, saw clifford catherine at [facility] and was told that he is not a candidate. developed some retention here, johnson in. urine output is decent Serum creatinine peaked 3.7 and continues to improve daily. Creatinine is down to 3.28 today. Overall renal function stable. Patient did not require any TABLEMAN continue to hold lisinopril and lasix for now. patient follows with [facility] nephrology Possible discharge to skilled nursing today, ok for discharge per nephrology standpoint. They will follow-up with [facility] nephrology after discharge. Continue to hold lisinopril and Lasix at the time of discharge. discussed with Dr. Hernandez
[2023-03-10 11:20] LABS: Bedside Glucose 257 mg/dL (74-106)
--- NOTE | 2023-03-10 12:19 | DS.PCM_ITS ---
Providers Date of Admission: 03/03/23 Date of Discharge: 03/10/23 Primary Care Physician: Dr. Chavo Herman MD Consultations 03/03/23 23:05 Consult: Cardiology Routine Consulting Provider: Olvin Carlos Reason for Consult: cardiac clearance EMERGENT Consult: No Notified: Yes Date Notified: 03/03/23 Time Notified: 22:33 Method of Notification: Text Consult: Orthopedics Routine Consulting Provider: Gustabo Slaughter Reason for Consult: right hip fracture EMERGENT Consult: No Notified: Yes Date Notified: 03/03/23 Time Notified: 22:33 Method of Notification: ED Physician Initiated 03/06/23 08:07 Consult: Nephrology Routine Consulting Provider: Hieu Love Reason for Consult: MELL on CKD EMERGENT Consult: No Notified: Yes Date Notified: 03/06/23 Time Notified: 08:07 Method of Notification: Text Reason For Visit: HIP FXR Diagnosis Discharge Diagnosis (1) Fracture of femoral neck, right: Status: Acute Code(s): S72.001A - Fracture of unspecified part of neck of right femur, initial encounter for closed fracture Qualifiers: Encounter type: initial encounter Fracture type: closed Qualified Code(s): S72.001A - Fracture of unspecified part of neck of right femur, initial encounter for closed fracture (2) Closed right hip fracture: Status: Acute Code(s): S72.001A - Fracture of unspecified part of neck of right femur, initial encou nter for closed fracture Plan The disease 87-year-old gentleman admitted after a fall was laying in the house for several hours before admission. Patient was trying to get out of the chair and then fall. 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 * on IV morphine, PO oxycodone and PO tylenol prn for pain * s/p right hip hemiarthroplasty. On 03/05/2023. * PT/OT On board. * fall precautions. 03/09: Patient to clinical short of breath but chest x-ray portable tender does not show acute change although little underpenetration. Patient is confused and disoriented probably acute metabolic encephalopathy. No fever. Blood pressure and heart rate in normal range. 03/10: Patient is mildly confused but better than yesterday. I think patient has forgetfulness and mild dementia. Patient is being discharged to [facility]. Acute encephalopathy better. #Elevated troponin * initial troponin was elevated at 178, and trended down to 145 most likely nonischemic from CKD or increased myocardial demand from severe anemia. * does have CKD which could be the cause of elevated troponins * He had stress test in January 2023 which showed mildly abnormal stress test with inferior apical ischemia * cardiology on board * 2D echo showed EF of 60% with moderate concentric LVH and normal LV systolic function. Has stage 1 diastolic dysfunction. * Continue medical therapy with beta-wayne and nitrates. #Ascending aortic aneurysm * high risk for repair. * to follow up with vascular surgery on outpatient basis * #Acute on chronic anemia * Hb 7.6, repeat hemoglobin 8.2 * It was around 9.6 yesterday. Has a 2 point drop in hemoglobin. * No clear evidence of bleeding. 03/09: Hemoglobin 7.7. 12.8: Hemoglobin is better at 8.2. Hold baby aspirin while patient is on Eliquis. MCV 90 normocytic normochromic anemia. Ferritin is high 6924, iron saturation low therefore consistent with anemia due to CKD. 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 Was 3.73 yesterday. base line Cr is 2.4 * Hydrate with IV fluids. Patient started on Ringer's lactate after surgery. * lisinopril held * nephrology on board; appreciate recommendation * renal USG was unremarkable. * Huff catheter in situ due to concerns about urine retention. 03/08: Repeat creatinine 3.5. BUN 84. 03/09: Creatinine increased to 3.46. Bicarb 20. Anion gap 5. Billing Representative managing it. Patient not candidate for dialysis. Discussed with the patient sedated. 03/10: Patient had urinated send therefore required Huff catheter patient is being discharged with Huff catheter. Spontaneous voiding trial in [facility] and follow-up with library monitor. His creatinine is slightly better at 3.28 from the zenith of 3.73 #Paroxysmal afib: on eliquis. eliquis resumed. Patient on Eliquis 2.5 mg twice daily that will help with DVT prophylaxis. #Hyperlipidemia: on statin #Gout: on allopurinol #Depression; on escitalopram #Hypertension: on hydralazine and lisinopril. Lisinpril held due to MELL. #Dementia: on namenda. 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 ISS. Accuchecks ACHS. DVT prophylaxis: on eliquis Discharge medication reconciliation done. Discharge follow-up instructions completed. Discharge process discussed with the patient and all questions were answered to patient's satisfaction. Follow with PCP in 1 to 2 weeks Total time spent, exact 35 minutes on discharge meds reconciliation, examination, coordination of care with nurses and ancillary staff, review of imaging and blood test and discussion with the patient on follow-up instructions. Medications at Discharge Home Medications lisinopril 20 mg tablet 20 mg PO DAILY BP 07/31/15 atorvastatin 80 mg tablet 80 mg PO DAILY Check with primary doctor 05/04/17 dulaglutide 1.5 mg/0.5 mL [facility] 3 mg subcut QWEEK Check with primary doctor 02/21/21 escitalopram oxalate 10 mg tablet 10 mg PO DAILY Check with primary doctor 02/21/21 memantine 5 mg tablet 5 mg PO BID Check with primary doctor 02/21/21 allopurinol 100 mg tablet 100 mg PO DAILY 08/28/22 cyanocobalamin (vitamin B-12) 1,000 mcg tablet 1,000 mcg PO DAILY 08/28/22 aspirin 81 mg tablet,delayed release (Adult Low Dose Aspirin) 81 mg PO DAILY Check with primary doctor 11/28/22 cholecalciferol (vitamin D3) 1,250 mcg (50,000 unit) tablet 1,250 mcg PO QWEEK diuretic 11/28/22 metoprolol tartrate 50 mg tablet 50 mg PO QHS 11/28/22 metoprolol tartrate 50 mg tablet 75 mg PO BREAKFAST Check with primary doctor 11/28/22 hydralazine 50 mg tablet 100 mg PO TID 12/26/22 furosemide 40 mg tablet 40 mg PO Q OTHER DAY water pill 02/02/23 isosorbide mononitrate 30 mg tablet,extended release 24 hr 30 mg PO DAILY #30 tabs 02/21/23 acetaminophen 325 mg tablet 650 mg (2 x 325 mg) PO Q6H PRN PRN Pain 1-10 Or Fever >100.7 #0 tabs 03/10/23 apixaban 2.5 mg tablet (Eliquis) 2.5 mg PO BID 30 days #60 tabs 03/10/23 calcium carbonate 200 mg calcium (500 mg) chewable tablet 500 mg (2.5 x 200 mg calcium (500 mg)) PO TIDCM #0 tabs 03/10/23 insulin lispro 100 unit/mL subcutaneous pen (Humalog KwikPen (U-100) Insulin) See Protocol subcut TIDAC #0 mL 03/10/23 oxycodone 5 mg tablet 2.5 - 5 mg (0.5 - 1 x 5 mg) PO Q4H PRN PRN Pain Score 4-10 3 days #7 tabs 03/10/23 pantoprazole 40 mg tablet,delayed release 40 mg PO DAILY #30 tabs 03/10/23 sennosides 8.6 mg-docusate sodium 50 mg tablet (Stool Softener-Stimulant Laxative) 2 tab PO BID #0 tabs 03/10/23 Physical Exam Narrative Seen and examined. Patient admitted with right hip fracture. Patient has Huff catheter required because of his degree retention urine is dark yellow. Physical exam General: Awake, pleasantly confused. Disoriented to time. Not agitated HEENT: Atraumatic, PERRLA, EOMI, Normocephalic Oral: No Gingival or Mucosal Lesions/ Ulcerations Neck: Supple, No JVD, Negative Carotid Bruits Lungs: No dyspnea at rest. Air entry diminished in bilateral lung bases. No crepitation/rhonchi Cardiovascular: Regular rate, Regular Rhythm, Normal S1, Normal S2, systolic murmurs Abdomen: Bowel Sounds Present, Soft, Non Tender, Non-Distended : Clear urine. No renal angle tenderness. No suprapubic tenderness. Extremities: No edema, Capillary Refill Less than 3 Seconds Skin: No rashes, No breakdown Musculoskeletal: Right hip surgical dressing is dry. No Tenderness to Palpation of Joints or Extremities Neurological: Cranial nerves II-XII grossly intact, DTR 2+/4. No acute focal neurological deficit. Psych/Mental Status: Flat affect. Weight / BMI Weight Weight: 203 lb 7.787 oz Body Mass Index (BMI) 28.3 ABG / Lab / Microbiology Data 03/10/23 05:55 03/10/23 05:55 Laboratory: Laboratory Results - last 24 hr 03/09/23 16:47: POC Glucose 268 H 03/09/23 20:18: POC Glucose 300 H 03/10/23 05:55: WBC 13.9 H, RBC 2.86 L, Hgb 8.2 L, Hct 26.0 L, MCV 90.9, MCH 28.7, MCHC 31.5 L, RDW Std Deviation 47.5 H, RDW Coeff of Shen 14.1, Plt Count 284, MPV 9.8, Immature Gran % (Auto) 1.100 H, Neut % (Auto) 81.8 H, Lymph % (Auto) 6.6 L, Victoria % (Auto) 8.4, Eos % (Auto) 1.8, Baso % (Auto) 0.3, Absolute Neuts (auto) 11.4 H, Absolute Lymphs (auto) 0.92, Nucleated RBC % 0, Sodium 136, Potassium 4.9, Chloride 109 H, Carbon Dioxide 20.0 L, Anion Gap 7, BUN 87 H, Creatinine 3.28 H, Estim Creat Clear Calc 17.54, Est GFR (MDRD) Af Amer 23 L, Est GFR (MDRD) Non-Af 19 L, BUN/Creatinine Ratio 26.5 H, Glucose 258 H, Calcium 8.1 L 03/10/23 06:06: POC Glucose 244 H 03/10/23 11:01: POC Glucose 257 H Radiography Diagnostic Testing: Radiology Impression Chest X-Ray 03/09/23 10:48 IMPRESSION: Stable chest. Minimal left lower lobe atelectasis and/or scarring. No demonstrated acute cardiopulmonary process. Electronically Signed: Marichuy Lua MD at 17:51 EST Reading Location ID and State: [facility] / [place] Tel , Service support , Meaningful Use Info Meaningful Use Diagnoses (Choose all that apply): None applicable Discharge Plan Admission Admit Date/Time: 03/03/23 22:25 Primary Reason for Your Visit: Right hip fracture. MELL, urine retention. Attending Provider: Cali Hernandez Primary Care Provider: Chavo Herman Consulting Providers: Olvin Carlos; Gustabo Slaughter; Payam Blanc; Hieu Love; Giana Young Instructions Additional Instructions / Restrictions: Follow-up with library monitor as an outpatient in 1 week. Patient follows F library monitor, NICHOL Weber Discharge Orders/Prescriptions Prescriptions: New acetaminophen 325 mg Tablet 650 mg PO Q6H PRN PRN (Reason: Pain 1-10 Or Fever >100.7) Qty: 0 0RF calcium carbonate 200 mg calcium (500 mg) Tablet,Chewable 500 mg PO TIDCM Qty: 0 0RF insulin lispro [Humalog KwikPen Insulin] 100 unit/mL Insulin Pen See Protocol subcut TIDAC Qty: 0 0RF Protocol: 4. Sliding Scale Insulin High-Med Dosing Condition: 150-199 mg/dl = 2 units Condition: 200-259 mg/dl = 4 units Condition: 260-324 mg/dl = 6 units Condition: 325-374 mg/dl = 8 units Condition: 375-409 mg/dl = 10 units Condition: 410-449 mg/dl = 11 units Condition: Greater than 449 call physician Protocol Text: - Use for Total Daily Dose of Insulin 56-80 units - Patient who are insulin resistant or septic HIGH MEDIUM DOSING ALGORITHM sennosides-docusate sodium [Stool Softener-Stimulant Laxat] 8.6-50 mg Tablet 2 tab PO BID Qty: 0 0RF pantoprazole 40 mg Tablet,Delayed Release (Dr/Ec) 40 mg PO DAILY Qty: 30 0RF oxycodone 5 mg Tablet 2.5 - 5 mg PO Q4H PRN PRN (Reason: Pain Score 4-10) 3 Days Qty: 7 0RF Rx Instructions: 2.5 mg for moderate pain 5 mg for severe pain respectively Continued cholecalciferol (vitamin D3) 1,250 mcg (50,000 unit) tablet 1,250 mcg PO QWEEK hydralazine 50 mg tablet 100 mg PO TID Patient Comments: TAKE 2 TABLETS BY MOUTH THREE TIMES DAILY atorvastatin 80 MG tablet 80 mg PO DAILY escitalopram oxalate 10 mg tablet 10 mg PO DAILY memantine 5 mg tablet 5 mg PO BID Trulicity 1.5 mg/0.5 mL pen injector 3 mg SUBCUT QWEEK Hold Instructions: Resume on 03/23/21. Hold while at long-term. Rx Instructions: on mon metoprolol tartrate 50 mg tablet 75 mg PO BREAKFAST cyanocobalamin (vitamin B-12) 1,000 mcg Tablet 1,000 mcg PO DAILY allopurinol 100 mg tablet 100 mg PO DAILY metoprolol tartrate 50 mg tablet 50 mg PO QHS Eliquis 2.5 mg tablet 2.5 mg PO BID 30 Days Qty: 60 0RF isosorbide mononitrate 30 mg tablet extended release 24 hr 30 mg PO DAILY Qty: 30 11RF Held aspirin [Adult Low Dose Aspirin] 81 mg tablet,delayed release (DR/EC) 81 mg PO DAILY Hold Instructions: Hold baby aspirin while patient is on Eliquis. lisinopril 20 MG tablet 20 mg PO DAILY Hold Instructions: Hold for 1 week for MELL and follow with PCP with BMP. Blood pressure is in normal range. furosemide 40 mg tablet 40 mg PO Q OTHER DAY Hold Instructions: Hold for 1 week follow with PCP with repeat BMP. Referrals / Follow Up: Olvin Carlos MD [Med Staff - Active Staff] - Within 1 Month Gustabo Slaughter DO [Med Staff - Active Staff] - Within 2 Weeks Chavo Herman MD [Primary Care Provider] - Disposition Disposition (needs filled in before D/C Order can be placed): Nursing Home Facility Charges/Coding Visit Charges Inpatient E&M: 79224 Disch Hosp >30min
--- NOTE | 2023-03-10 12:49 | CASEMGMT ---
SW completed a 7000 in [facility]. Plan: d/c to [facility] (formerly [facility]) under skilled level of care. Physicians will transport patient via cot. Bailey LIM
--- NOTE | 2023-03-10 12:57 | CASEMGMT ---
Discharge Planning Discharge orders, signed med list, and transport time sent to [facility]) via [facility]. [facility] will transport patient by cot at 2:30p. Nursing, SW, and patients updated. Fifi Ramirez, Discharge Planning Asst.
--- NOTE | 2023-03-10 13:35 | PHA.DC.MR.R ---
Pharmacy [place] Med Reconciliation Pharmacy Service has performed discharge medication reconciliation for this patient upon transfer to [facility]. The patient's discharge medication list was reviewed for discrepancies and discrepancies were resolved. Medications at Discharge Home Medications lisinopril 20 mg tablet 20 mg PO DAILY BP 07/31/15 atorvastatin 80 mg tablet 80 mg PO DAILY Check with primary doctor 05/04/17 dulaglutide 1.5 mg/0.5 mL subcutaneous pen injector (Trulicity) 3 mg subcut QWEEK Check with primary doctor 02/21/21 escitalopram oxalate 10 mg tablet 10 mg PO DAILY Check with primary doctor 02/21/21 memantine 5 mg tablet 5 mg PO BID Check with primary doctor 02/21/21 allopurinol 100 mg tablet 100 mg PO DAILY 08/28/22 cyanocobalamin (vitamin B-12) 1,000 mcg tablet 1,000 mcg PO DAILY 08/28/22 aspirin 81 mg tablet,delayed release (Adult Low Dose Aspirin) 81 mg PO DAILY Check with primary doctor 11/28/22 cholecalciferol (vitamin D3) 1,250 mcg (50,000 unit) tablet 1,250 mcg PO QWEEK diuretic 11/28/22 metoprolol tartrate 50 mg tablet 50 mg PO QHS 11/28/22 metoprolol tartrate 50 mg tablet 75 mg PO BREAKFAST Check with primary doctor 11/28/22 hydralazine 50 mg tablet 100 mg PO TID 12/26/22 furosemide 40 mg tablet 40 mg PO Q OTHER DAY water pill 02/02/23 isosorbide mononitrate 30 mg tablet,extended release 24 hr 30 mg PO DAILY #30 tabs 02/21/23 acetaminophen 325 mg tablet 650 mg (2 x 325 mg) PO Q6H PRN PRN Pain 1-10 Or Fever >100.7 #0 tabs 03/10/23 apixaban 2.5 mg tablet (Eliquis) 2.5 mg PO BID 30 days #60 tabs 03/10/23 calcium carbonate 200 mg calcium (500 mg) chewable tablet 500 mg (2.5 x 200 mg calcium (500 mg)) PO TIDCM #0 tabs 03/10/23 insulin lispro 100 unit/mL subcutaneous pen (Humalog KwikPen (U-100) Insulin) See Protocol subcut TIDAC #0 mL 03/10/23 oxycodone 5 mg tablet 2.5 - 5 mg (0.5 - 1 x 5 mg) PO Q4H PRN PRN Pain Score 4-10 3 days #7 tabs 03/10/23 pantoprazole 40 mg tablet,delayed release 40 mg PO DAILY #30 tabs 03/10/23 sennosides 8.6 mg-docusate sodium 50 mg tablet (Stool Softener-Stimulant Laxative) 2 tab PO BID #0 tabs 03/10/23
== END 2023-03-10 14:51 | disposition skilled nursing facility (03) | DRG 521 ==
LOC: ED 22:03 → PCU 22:40
PROVIDERS: Anesthesiology; Orthopaedic Surgery; Student in an Organized Health Care Education/Training Program; Emergency Provider Student in an Organized Health Care Education/Training Program; PCP Family Medicine; Visit Provider Internal Medicine
PROC: 0SRR0JA Replacement of Right Hip Joint, Femoral Surface with Synthetic Substitute, Uncemented, Open Approach (ICD-10-PCS; CPT 27125; principal; 2023-03-05 08:00)
DX: S72.001A Fracture of unspecified part of neck of right femur, initial encounter for closed fracture (principal); G93.41 Metabolic encephalopathy; N17.9 Acute kidney failure, unspecified; N18.4 Chronic kidney disease, stage 4 (severe); E10.22 Type 1 diabetes mellitus with diabetic chronic kidney disease; I48.0 Paroxysmal atrial fibrillation; I71.21 Aneurysm of the ascending aorta, without rupture; F03.A0 Unspecified dementia, mild, without behavioral disturbance, psychotic disturbance, mood disturbance, and anxiety; F32.A Depression, unspecified; I12.9 Hypertensive chronic kidney disease with stage 1 through stage 4 chronic kidney disease, or unspecified chronic kidney disease; D63.1 Anemia in chronic kidney disease; I25.10 Atherosclerotic heart disease of native coronary artery without angina pectoris; M10.9 Gout, unspecified; E78.5 Hyperlipidemia, unspecified; I25.82 Chronic total occlusion of coronary artery; W19.XXXA Unspecified fall, initial encounter; Z86.73 Personal history of transient ischemic attack (TIA), and cerebral infarction without residual deficits; Z82.3 Family history of stroke; Z79.82 Long term (current) use of aspirin; Y92.019 Unspecified place in single-family (private) house as the place of occurrence of the external cause
CPT/HCPCS: 36415; 70450; 71045; 72125; 73502; 76770; 80048; 80053; 81001; 82306; 82550; 82570; 82728; 82962; 83036; 83540; 83550; 84484; 84540; 85014; 85018; 85025; 85045; 86850; 86900; 86901; 88305; 88307; 88311; 92526; 92610; 93005; 93306; 94640; 94762; 97110; 97162; 97166; 97530; 97535; 97802; 99285; 99406; C1776; J7030; J7040; J7120; P9612; Q9957; A4216; J2405